=== PATIENT | female | born 1955 | race Caucasian/White ===

== ENCOUNTER 2016-04-05 08:59 | Inpatient (IN) | payer OTHER ==
[~2016-04-05] VITALS: Ht 160 cm; Wt 96.0 kg
[2016-04-05] MEDS ORDERED: metroNIDAZOLE 500 MG/NS (PMX) 100 ML IVPB STA (11:18)
[2016-04-05] MEDS ORDERED: PIPER-TAZO 3.375 GM IV (PMX) 100 ML IVPB STA (11:18)
[2016-04-05] MEDS ORDERED: SODIUM CHLORIDE 0.9% 1L BAG IV* STA (11:18)
[2016-04-05] MEDS ORDERED: ONDANSETRON 4 MG INJ IV STA (11:27)
[2016-04-05] MEDS ORDERED: morphine 4 MG/ML VIAL IV STA ×2 (11:27→14:59)
--- NOTE | 2016-04-05 11:49 | RADRPT ---
PROCEDURE: XR Chest 1 View. CLINICAL INDICATION: Shortness of breath, possible sepsis TECHNIQUE: AP view of the chest were obtained. COMPARISON: None. FINDINGS: The heart size is within normal limits. Calcified atherosclerosis is noted in the aorta. No consol idations are identified. No pneumothorax is seen. Osseous structures are intact. IMPRESSION: Calcified atherosclerosis in the aorta. No visualized active disease. RPTAT: AA .Mikael Cartagena MD, Date Time Electronically viewed and signed by .Mikael Cartagena MD, MD on 04/05/2016 11:49 .P/
[2016-04-05 12:07] LABS: HEMATOCRIT 43.6 % (37.0-47.0); HEMOGLOBIN 14.4 g/dl (12.0-16.0); MEAN CORPUSCULAR HEMOGLOBIN 27.6 pg (29.0-33.0); MEAN CORPUSCULAR HGB CONC 33.2 g/dl (32.0-37.0); MEAN CORPUSCULAR VOLUME 83.1 fl (82.0-101.0); MEAN PLATELET VOLUME 7.8 fl (7.4-10.4); PLATELET COUNT 348 10^3/UL (140-440); RED BLOOD COUNT 5.24 10^6/ul (4.20-5.40); RED CELL DISTRIBUTION WIDTH 16.4 % (11.5-14.5); UNCORRECTED WBC 10.9 10^3/ul (4.8-10.8); WHITE BLOOD COUNT 10.9 10^3/ul (4.8-10.8)
[2016-04-05 12:12] LABS: CHLORIDE 99 mmol/L (97-110); SODIUM 140 mmol/L (135-144)
[2016-04-05 12:14] LABS: ANION GAP 18 (8-16); BILIRUBIN,INDIRECT 0.8 mg/dl (0-1.1); BILIRUBIN,TOTAL 0.8 mg/dl (0.2-1.3); CARBON DIOXIDE 28 mmol/L (21-31); CONDITION 1; CREATININE 0.75 mg/dl (0.44-1.00); LH ANALYZER COMMENTS 1
[2016-04-05 12:15] LABS: ALANINE AMINOTRANSFERASE 26 IU/L (13-69); ALBUMIN/GLOBULIN RATIO 1.08; ALKALINE PHOSPHATASE 96 IU/L (42-121); ASPARTATE AMINO TRANSFERASE 32 IU/L (15-46); BLOOD UREA NITROGEN 16 mg/dl (7-20); GLUCOSE 144 mg/dl (70-220); TOTAL PROTEIN 7.7 g/dl (6.1-8.1)
[2016-04-05] MEDS ORDERED: ALBU18HF INHALATION (12:27)
[2016-04-05 12:38] LABS: TROPONIN-I < 0.012 ng/ml (0.00-0.12)
[2016-04-05 12:40] LABS: INR 1.03; PARTIAL THROMBOPLASTIN TIME 26.4 Sec (25.0-35.0); PROTIME 13.5 Sec (12.2-14.2); PT RATIO 1.1
[2016-04-05 12:54] LABS: EOSINOPHILS # 0.1 10^3/ul (0.0-0.5); LYMPHOCYTES # 0.5 10^3/ul (0.8-2.9); MONOCYTE # 0.3 10^3/ul (0.3-0.9); NEUTROPHIL # 8.5 10^3/ul (1.6-7.5)
--- NOTE | 2016-04-05 13:34 | RADRPT ---
PROCEDURE: CT Abdomen and Pelvis without contrast. CLINICAL INDICATION: Abdominal pain TECHNIQUE: CT scan of the abdomen and pelvis was performed on a multidetector high-resolution CT s [employer] without intravenous contrast. Coronal and sagittal reformatted images were obtained from the axial source images. Images were reviewed on a high-resolution PACS workstation. The total exam CTD I equals 24mGy and the total exam DLP equals 1383mGy-cm. One or more of the following dose reduction techniques were used: Automated exposure control, Adjustment of the mA and/or kV according to patie nt size, and/or use of iterative reconstruction technique. COMPARISON: None. FINDINGS: Evaluation of the solid organs is limited given the lack of intravenous contrast administration. Bibasilar atelectasis. Small hiatal hernia. Perihepatic ascites and pericholecystic fluid is seen. There is also free fluid seen in the bilatera l pericolic gutters and pelvis. The liver is normal in size. The pancreas, spleen and right adrenals are unremarkable. Left adrena l 12 mm nodule with internal density of -9 HU. No hydronephrosis. No renal or ureteral stone. Large left upper pelvic complex loculated fluid collection surrounding multiple small bowel loops me asures 11 x 8 centimeter. There is surrounding inflammatory stranding with small foci of air and cu rvilinear calcifications within the collection. Colonic diverticulosis. No significant bowel dilatation is identified to suggest bowel obstruction. The uterus is absent. IMPRESSION: Large left upper pelvic loculated fluid collection measuring 11 x 8 cm. There is surrounding inflam matory stranding with small foci of air and curvilinear calcifications within the collection. The co llection is suboptimally evaluated on noncontrast imaging. The differential considerations are led by an abscess. Alternative considerations would include a cystic mass or other cystic lesion. Consi lashay contrast enhanced CT or MRI for further evaluation. Small amount of perihepatic, pericholecystic, and bilateral pericolic gutter free fluid is seen. Colonic diverticulosis. Left adrenal adenoma. RPTAT: AA .Christopher Ferguson MD, MD Date Time Electronically viewed and signed by .Christopher Ferguson MD, on 04/05/2016 13:34 .T/
--- NOTE | 2016-04-05 13:55 | ERA ---
ER Documentation Chief Complaint Date/Time DATE: 04/05/16 TIME: 13:49 Chief Complaint ABDOMINAL PAIN AND NAUSEA FOR THE PAST FEW DAYS. GETTING WORSE TODAY HPI 60-year-old female with a history of gastritis and diverticulitis presenting with lower abdominal and epigastric pain. She states that she has had pain for the past 2 months and her abdomen. When it first started she was diagnosed with a UTI. She has had this pain that has been ongoing and staying the same for the past 2 months, however today her pain significantly worsened. She describes it as aching, pressure-like pain in her lower abdomen radiating all over her abdomen. She has had intermittent associated fevers and chills. No nausea or vomiting. She has had issues with constipation but her last bowel movement was this morning. She denies any diarrhea, hematochezia, melena. No dysuria. ROS All systems reviewed and are negative except as per history of present illness. Medications Home Meds Reported Medications Albuterol Sulfate* (Ventolin HFA*) 18 Gm Hfa.aer.ad, 2 PUFF INHALATION Q4H Y for WHEEZING AND SOB, #1 INHALER 04/05/16 Allergies Allergies: Coded Allergies: No Known Allergy (Unverified , 04/05/16) PMhx/Soc History of Surgery: No Anesthesia Reaction: No Hx Neurological Disorder: Yes ("SHAKINESS") Hx Respiratory Disorders: Yes (ASTHMA) Hx Cardiac Disorders: No Hx Psychiatric Problems: No Hx Miscellaneous Medical Probl: Yes (GASTRITIS, diverticulitis) Hx Alcohol Use: No Hx Substance Use: No Hx Tobacco Use: No Smoking Status: Never smoker FmHx Family History: No diabetes Physical Exam Vitals Vital Signs Date Time Temp Pulse Resp B/P Pulse Ox O2 Delivery O2 Flow Rate FiO2 04/05/16 13:30 98.6 83 16 121/76 98 Room Air 04/05/16 11:21 99.1 83 16 119/71 98 Room Air 04/05/16 09:02 101.7 99 24 172/115 94 Physical Exam Const: Nontoxic, well-developed, well-nourished, mild distress secondary to pain , overall tremulousness Head: Atraumatic Eyes: Normal Conjunctiva ENT: Normal External Ears, Nose and Mouth. Neck: Full range of motion. No meningismus. Resp: Clear to auscultation bilaterally Cardio: Regular rate and rhythm, no murmurs Abd: Soft, diffusely tender to palpation, more marked in the lower quadrants and epigastrium. No peritoneal signs. non distended. Decreased bowel sounds Skin: No petechiae or rashes Back: No midline or flank tenderness Ext: No cyanosis, or edema Neur: Awake and alert and oriented 3 Psych: Normal Mood and Affect Result Diagram: 04/05/16 1135 04/05/16 1135 Results 24 hrs Laboratory Tests Test 04/05/16 11:35 04/05/16 12:26 04/05/16 14:28 Activated Partial Thromboplast Time 26.4Sec Alanine Aminotransferase (ALT/SGPT) 26IU/L Albumin 4.0g/dl Albumin/Globulin Ratio 1.08 Alkaline Phosphatase 96IU/L Anion Gap 18 Aspartate Amino Transf (AST/SGOT) 32IU/L Band Neutrophils % 13.0% Basophils # 10^3/ul Basophils % % Blood Morphology Comment Blood Urea Nitrogen 16mg/dl Calcium Level 9.0mg/dl Carbon Dioxide Level 28mmol/L Chloride Level 99mmol/L Creatinine 0.75mg/dl Differential Comment MANUAL DIFF Direct Bilirubin 0.00mg/dl Eosinophils # 0.110^3/ul Eosinophils % 1.0% Globulin 3.70g/dl Glucose Level 144mg/dl Hematocrit 43.6% Hemoglobin 14.4g/dl INR International Normalized Ratio 1.03 Indirect Bilirubin 0.8mg/dl Lipase 18U/L Lymphocytes # 0.510^3/ul Lymphocytes % 5.0% Mean Corpuscular Hemoglobin 27.6pg Mean Corpuscular Hemoglobin Concent 33.2g/dl Mean Corpuscular Volume 83.1fl Mean Platelet Volume 7.8fl Monocytes # 0.310^3/ul Monocytes % 3.0% Neutrophils # 8.510^3/ul Neutrophils % 78.0% Nucleated Red Blood Cells # 10^3/ul Nucleated Red Blood Cells % /100WBC Platelet Count 29802^3/UL Potassium Level 5.0mmol/L Prothrombin Time 13.5Sec Prothrombin Time Ratio 1.1 Red Blood Count 5.2410^6/ul Red Cell Distribution Width 16.4% Sodium Level 140mmol/L Total Bilirubin 0.8mg/dl Total Protein 7.7g/dl Troponin I < 0.012ng/ml White Blood Count 10.910^3/ul Lactic Acid Level 3.5mmol/L 2.5mmol/L Current Medications Medications (Trade) Dose Ordered Sig/Arsenio Route PRN Reason Start Time Stop Time Status Last Admin Dose Admin Sodium Chloride 3010 ml 3,010 ml BOLUS OVER 2 HOURS STAT IV* 04/05/16 11:18 04/05/16 11:22 DC 04/05/16 12:40 Piperacillin Sod/ Tazobactam Sod 100 ml @ 200 mls/hr ONCE STAT IVPB 04/05/16 11:18 04/05/16 11:47 DC 04/05/16 12:39 Metronidazole (Flagyl 500 Mg (Pmx)) 100 ml @ 100 mls/hr ONCE STAT IVPB 04/05/16 11:18 04/05/16 12:17 DC 04/05/16 14:16 Morphine Sulfate (morphine) 6 mg ONCE STAT IV 04/05/16 11:27 04/05/16 11:28 DC 04/05/16 12:15 Ondansetron HCl (Zofran Inj) 4 mg ONCE STAT IV 04/05/16 11:27 04/05/16 11:28 DC 04/05/16 12:15 IV Flush 10 ml 10 ml STK-MED ONCE .ROUTE 04/05/16 13:58 04/05/16 13:59 DC Sodium Chloride (NS) 100 ml @ ud STK-MED ONCE .ROUTE 04/05/16 13:58 04/05/16 13:59 DC Iohexol (Omnipaque 300mg/ ml) 150 ml STK-MED ONCE .ROUTE 04/05/16 13:58 04/05/16 13:59 DC Procedures/MDM EKG: Rate/Rhythm: Sinus rhythm with PACs QRS, ST, T-waves: No changes consistent w/ acute ischemia Impression: No evidence of ischemia or arrhythmia Patient is presenting with abdominal pain associated with fever. I suspect diverticulitis versus colitis. Broad-spectrum antibiotics given for possible intra-abdominal infection. Morphine was given with significant improvement in symptoms. CT confirmed evidence of intra-abdominal abscess likely secondary to diverticulitis. Patient's infectious symptoms have not stabilized and the patient is at risk of rapid decompensation. The patient will be admitted for careful hydration, antibiotic therapy, and infectious source control. I spoke with the surgeon on-call who recommended CT percutaneous drainage by radiology. I also spoke to the patient and her daughter regarding a renal mass that was seen on the CT scan and recommended follow-up with primary care physician for this. She will need outpatient workup and referral to a specialist. A copy of the CT was provided. Severe Sepsis Assessment: Infectious Source: Acute intra-abdominal abscess End organ damage indicated by: Lactate > 2.0 mmol/L Severe Sepsis Managment: Blood Cultures X 2 before broad spectrum antibiotics initiated within 3 hours of recognition. 30 ml/kg NS bolus Completed Initial Lactate: 3.5 Repeat Lactate 2.5 Critical Care: Time: 35 minutes Treatments/Evaluations: Emergent fluid management, while maintaining close respiratory support. Immediate broad spectrum antibiotic therapy. Simultaneous assessment for possible sources in order to direct therapy. Consideration for invasive and chemical support to prevent respiratory or cardiac collapse. Septic Shock Assessment (1 hour post 30 ml/kg fluid bolus): Hypotension (SBP < 90 or 40 mmHg drop, MAP < 65): No Lactic acid > 4.0 No Accepting Care Team: Current data and ongoing care discussed. Time: Time of admission Primary Provider: Cisco Hodges Consulting: [facility] Outstanding Data: cultures Departure Diagnosis: Primary Impression: Intra-abdominal abscess Additional Impressions: Severe sepsis Abdominal pain Qualified Code: R10.84 - Generalized abdominal pain Condition: Serious EVA MARK MD Apr 05, 2016 13:54
[2016-04-05] MEDS ORDERED: SOD CHLORIDE 0.9% 100 ML ONE (13:58)
[2016-04-05] MEDS ORDERED: IOHEXOL 300MG/ML 150 ML BTL ONE (13:58)
--- NOTE | 2016-04-05 14:49 | RADRPT ---
AMENDMENT: 04/12/2016 6:47:52 PM Michael Yen MD ADDENDUM: There is redemonstrated left adrenal mass measuring 1.4 x 1.4 cm in diameter. The density of the ma ss on this contrast-enhanced study is greater than expected for a simple adenoma, measuring up to 51 HU. PROCEDURE: CT Abdomen and Pelvis with Contrast CLINICAL INDICATION: To further evaluate pelvic fluid collection on noncontrast CT TECHNIQUE: Transaxial images were obtained through the abdomen and pelvis on a multi-slice scanner following the intravenous administration of iodinated contrast. Noncontrast CT done earlier on the same date. Sagittal and coronal re-formations were subsequently reconstructed. One or more of the following dose reduction techniques were used: - Automated exposure control. - Adjustment of the mA and/or kV according to patient size. - Use of iterative reconstruction technique. Radiation dose: CTDIvol = 23.07 mGy; DLP = 1381.45 mGy-cm. COMPARISON: No prior studies are available for comparison. FINDINGS: Lung bases: Discoid atelectasis is seen within the anterior lung bases. Liver: The liver is enlarged. A 1 cm hypodensity is seen within the dome of the right lobe of the l iver and more inferiorly, a 4 mm hypodensity is seen in the posterior right lobe. These are suspici ous for cysts. Otherwise no focal lesion is evident. The hepatic components are patent. Gallbladder: The gallbladder remains mildly distended but no radiopaque stone is evident and the wal l is not thickened. Bile ducts: The intra and extrahepatic bile ducts are normal in caliber. Pancreas: Appears normal with no mass or inflammation evident. Spleen: Normal in size with no focal lesion. Adrenals: Normal with no mass identified. Kidneys, ureters and bladder: And there is a 2.6 x 2.3 x 1.8 cm hypodense mass extending into the la teral right kidney at the junction of the superior and mid poles which measures 80 HU. A 3 mm cyst is seen at the superior pole left kidney. There is no hydronephrosis. The renal veins are patent. The left renal vein courses posterior to the aorta. The ureters and bladder appear unremarkable. Reproductive organs: The uterus is absent and no adnexal masses evident. Stomach, bowel, and mesentery: There is a large lobulated loculated fluid collection seen in the int raperitoneal cavity within the pelvis anteriorly and extending to the left of midline containing coa rse calcifications and septations with thin wall enhancement. This is located superior to the bladd er and adjacent to sigmoid colon. There are diverticuli scattered to the colon. There is no eviden ce of bowel obstruction. A moderate-sized hiatal hernia is evident. Appendix: There is a tubular structure extending from the cecum to the left entering the loculated f luid collection described above. This may represent the vermiform appendix. Peritoneum: There is a small amount of free intraperitoneal fluid most evident within the right para colic gutter and within Morison's pouch. No free air is evident. Aorta: Normal in caliber with no aneurysmal dilatation. IVC: Unremarkable. Lymph nodes: No pathologically enlarged nodes are identified. Osseous structures: Mild diffuse degenerative spine changes are noted. IMPRESSION: 1. Since the noncontrast CT done earlier on the same date, a loculated intraperitoneal fluid collec tion with a thin enhancing wall is again seen in the pelvis have the midline and extending to the le ft of midline, lying superior to the bladder and adjacent to sigmoid colon with the apparent vermifo rm appendix extending into this collection. This measures 13.6 x 8.2 x 7.6 cm in diameter and cont ains coarse calcifications and bubbles of air. This is suspicious for an abscess. This could be of appendiceal origin or related to diverticulitis. 2. There is no evidence of bowel obstruction but there is diverticulosis of the colon and a moderat e sized hiatal hernia. 3. No evidence of urinary outflow obstruction but there again is a 2.6 x 2.3 x 1.8 cm mass measurin g 80 HU extending laterally at the junction of the mid and superior pole of the right kidney suspici ous for neoplasm. The renal veins are patent and no adenopathy is identified. 4. There is a small amount of free intraperitoneal fluid. No free air is evident. 5. Mild distension of the gallbladder with no bile duct dilatation or pancreatic pathology evident. 6. Hepatomegaly with 2 hypodensities seen in the right lobe the largest of which measures 1 cm in d iameter suspicious for cysts. Findings of intraperitoneal abscess and suspicion of a small right renal neoplasm were telephoned by Vimal Wright MD to Dr. Singleton on 04/05/2016 at 1445 hours. .Michael Yne MD, MD Date Time Electronically viewed and signed by .Michael Yen MD, MD on 04/12/2016 18:48 .K/
[2016-04-05] MEDS ORDERED: ACETAMINOPHEN 325 MG TAB PO PRN (15:00)
[2016-04-05] MEDS ORDERED: ONDANSETRON 4 MG INJ IV PRN ×2 (15:00→18:00)
[2016-04-05 15:40] VITALS: TEMP 97.1
[2016-04-05 16:40] VITALS: BP 109/58; PULSE 115; RESP 22
--- NOTE | 2016-04-05 17:20 | QN ---
Documentation Comment [id number] AIMEE PEREZ MD Apr 05, 2016 17:19
[2016-04-05 17:43] VITALS: Ht 160 cm; Wt 96.0 kg
[2016-04-05] MEDS ORDERED: NACL 0.9% 3 ML SYG IV SCH (18:00)
[2016-04-05] MEDS ORDERED: MAGNESIUM HYDROXIDE 30ML CUP PO PRN (18:00)
[2016-04-05] MEDS ORDERED: morphine 2 MG INJ IV PRN (18:00)
[2016-04-05] MEDS: DEXTROSE 5%-0.45% NACL 1,000 ML IV SCH (18:15)
--- NOTE | 2016-04-05 19:42 | HP ---
DATE OF ADMISSION: 04/05/2016 HISTORY OF PRESENT ILLNESS: Pratima Sexton is a 60-year-old female with a history of tremor, history of asthma. The patient has a history of diverticulitis in the past, presented with abdominal pain for the last couple of days. The patient's blood pressure was 167 and the patient's WBC 10.9, hematocrit 43.6, platelet count of 348. Lactic acid is 3.5. The patient has abdomen and pelvic CT done in the ER, shows large left upper pelvic loculated fluid collection measuring 8 x 8 x cm with surrounding inflammatory stranding with small focal area of free air and could be of calcification. The patient has a small amount of perihepatic pericholecystic, pericolic gutter free fluid is seen. The patient has left adrenal adenoma, is being admitted for further management. PAST MEDICAL HISTORY: Positive for history of tremor. The patient has diverticulitis. ALLERGIES: None. SOCIAL HISTORY: Negative. FAMILY HISTORY: Positive for hypertension, breast cancer. MEDICATIONS AT HOME: The patient is on some tremor medication and albuterol. REVIEW OF SYSTEMS HEENT: Unremarkable. RESPIRATORY: Unremarkable. CARDIOVASCULAR: Unremarkable. ABDOMEN: As mentioned above. No hematemesis, melena. EXTREMITIES: Unremarkable. GENITOURINARY: Unremarkable. MUSCULOSKELETAL: Unremarkable. PHYSICAL EXAMINATION: GENERAL: The patient is awake, alert. VITAL SIGNS: Pulse 53, blood pressure 121/76. HEAD: Atraumatic, normocephalic. Pupils equal, reactive to light. NECK: Supple. No JVD. LUNGS: Clear. CARDIOVASCULAR: S1, S2 are normal. ABDOMEN: Soft. Bowel sounds present. No palpable mass or hepatosplenomegaly. No guarding, rebound tenderness. ABDOMEN: Soft. The patient has tenderness in the left lower quadrant area and the left side of the abdomen. EXTREMITIES: No cyanosis, clubbing, or edema. CENTRAL NERVOUS SYSTEM: The patient is awake, alert, no focal deficit. LABORATORY DATA: WBC 10.9. IMPRESSION: 1. The patient has pelvic mass. 2. Possible diverticulitis. 3. Rule out abscess. 4. History of diverticulitis. PLAN: To keep her n.p.o., IV fluid, antibiotic, DVT prophylaxis, pain medications, PPI. Orders were done. Dictated By: AIMEE TOBAR/DRE Conf#: [id number] DID#: [id number]
[2016-04-05] MEDS ORDERED: morphine 4 MG/ML VIAL IV ONE (20:00)
[2016-04-05] MEDS: CIPROFLOXACIN 400MG/D5W 200 ML IVPB SCH (20:12)
[2016-04-05] MEDS: ACETAMINOPHEN 325 MG TAB PO PRN (20:17)
[2016-04-05 21:04] VITALS: BP 103/57; RESP 20
--- NOTE | 2016-04-05 21:38 | CONS ---
Date/Time of Note Date/Time of Note DATE: 04/05/16 TIME: 21:24 Assessment/Plan Assessment/Plan Chief Complaint/Hosp Course 1. Abdominal pain with large fluid collection (13.6 x 8.2 x 7.6 cm), ? abscess. DDx of source: Perforated diverticulitis versus perforated appendicitis versus cystic tumor versus other -Nothing by mouth -IV fluids -IV antibiotics -CT-guided drainage ordered and pending per IR 2. Hx of diverticulosis and diverticulitis -As above 3. BMI 37 -Nutrition optimization encouraged -Exercise encouraged 4. Leukocytosis and lactic acidosis with probable early sepsis secondary to above -As above -Supportive measures 5. Left adrenal adenoma -Workup per endocrine and oncology 6. 2.6 x 2.3 x 1.8 cm mass measuring 80 HU extending laterally at the junction of the mid and superior pole of the right kidney suspicious for neoplasm -Workup per urology and oncology 7. Hepatomegaly with hepatic cyst -Nutrition and weight optimization 8. Tremors -Medical management Thank you very much for consulting me in this patient's care, Problems: Consultation Date/Type/Reason Admit Date/Time Apr 05, 2016 at 14:49 Date of Consultation: Apr 05, 2016 Type of Consultation: Gen Surgical Reason for Consultation Abdominal large fluid collection, ? abscess Hx of diverticulosis and diverticulitis BMI 37 Tremors Leukocytosis Lactic acidosis Abdominal pain Referring Provider: AIMEE PEREZ MD Hx of Present Illness Pratima Sexton is a 60-year-old female with multiple comorbidities who presents with 3 weeks of on and off generalized abdominal pain that got worse in the past 5 days especially with ambulation. She's been having fevers on and off as well. She's been having nonbloody nonbilious vomiting. She reports having gas and bowel movement this morning. She is bloated. No chest pain or shortness of breath. No visual or neurologic changes. She reports history of diverticulitis 3 or 4 years ago. No previous history of exactly the same symptomatology. Straight up. No vaginal discharge. No seizure, rash, joint swellings. In the emergency room she is found to have fever with leukocytosis and lactic acidosis. CT shows a large fluid collection. She is admitted and placed on IV antibiotics and fluids. Surgical consult is obtained further evaluation and treatment. Constitutional: chills, diaphoresis, febrile Eyes: No discharge, No redness ENT: No bleeding, No congestion, No discharge, No dysphagia Respiratory: shortness of breath, No cough Cardiovascular: No chest pain, No edema, No lightheadedness Gastrointestinal: decreased appetite, flatus, nausea, pain, passing stool, vomiting Genitourinary: No bleeding, No dysuria, No flank pain Musculoskeletal: No back pain, No bone/joint pain, No neck pain, No restricted range of motion Skin: No bruising, No erythema, No pruritis, No rash Neurologic: No confusion, No dizziness, No headache Endocrine: No polydypsia, No polyuria Lymphatic: No adenopathy, No tender nodes Psychological: nl mood/affect, No confusion Immunologic: No pruritis, No rhinitis Past Medical History Abdominal large fluid collection, ? abscess Hx of diverticulosis and diverticulitis BMI 37 Tremors Leukocytosis Lactic acidosis Abdominal pain Left adrenal adenoma 2.6 x 2.3 x 1.8 cm mass measuring 80 HU extending laterally at the junction of the mid and superior pole of the right kidney suspicious for neoplasm Small amount of free intraperitoneal fluid. No free air is evident. Hepatomegaly with 2 hypodensities seen in the right lobe the largest of which measures 1 cm in diameter suspicious for cysts Past Surgical History Total abdominal hysterectomy and bilateral salpingo-oophorectomy secondary to fibroids and bleeding Family History Significant Family History: cancer (uterine cancer in grandmother. 2 cousins with breast cancer. Mother with hypertension.) Social History Alcohol Use: none Smoking Status: Former smoker (in her younger ages) Drug Use: none Exam/Review of Systems Vital Signs Vitals Vital Signs Date Time Temp Pulse Resp B/P Pulse Ox O2 Delivery O2 Flow Rate FiO2 04/05/16 21:04 101.8 122 20 103/57 94 04/05/16 16:40 Room Air Exam Constitutional: alert, obese, oriented, No distress Psych: anxiety Head: atraumatic, normocephalic Eyes: EOMI, PERRL, nl conjunctiva, No icteric ENMT: nl external ears & nose, nl lips & teeth, No mucosa pink and moist Neck: non-tender, supple Respiratory: normal air movement, No congested cough, No labored breathing Cardiovascular: No edema, No regular rate and rhythm Gastrointestinal: distended, tender, No rebound or guarding Musculoskeletal: nl extremities to inspection, No joint tenderness Extremities: normal pulses, No calf tenderness, No cyanosis Neurological: nl mental status, nl speech, nl strength Skin: nl turgor, No diaphoresis, No rash or lesions Lymph: nl lymph nodes, nontender Additional Comments Tremors Results Result Diagram: 04/05/16 1135 04/05/16 1135 Results 24 hrs Laboratory Tests Test 04/05/16 11:35 04/05/16 12:26 04/05/16 14:28 04/05/16 17:30 Activated Partial Thromboplast Time 26.4 Alanine Aminotransferase (ALT/SGPT) 26 Albumin 4.0 Albumin/Globulin Ratio 1.08 Alkaline Phosphatase 96 Anion Gap 18 H Aspartate Amino Transf (AST/SGOT) 32 Band Neutrophils % 13.0 H Basophils # Basophils % Blood Morphology Comment Blood Urea Nitrogen 16 Calcium Level 9.0 Carbon Dioxide Level 28 Chloride Level 99 Creatinine 0.75 Differential Comment MANUAL DIFF Direct Bilirubin 0.00 Eosinophils # 0.1 Eosinophils % 1.0 Globulin 3.70 H Glucose Level 144 Hematocrit 43.6 Hemoglobin 14.4 INR International Normalized Ratio 1.03 Indirect Bilirubin 0.8 Lipase 18 L Lymphocytes # 0.5 L Lymphocytes % 5.0 L Mean Corpuscular Hemoglobin 27.6 L Mean Corpuscular Hemoglobin Concent 33.2 Mean Corpuscular Volume 83.1 Mean Platelet Volume 7.8 Monocytes # 0.3 Monocytes % 3.0 Neutrophils # 8.5 H Neutrophils % 78.0 H Nucleated Red Blood Cells # Nucleated Red Blood Cells % Platelet Count 348 Potassium Level 5.0 Prothrombin Time 13.5 Prothrombin Time Ratio 1.1 Red Blood Count 5.24 Red Cell Distribution Width 16.4 H Sodium Level 140 Total Bilirubin 0.8 Total Protein 7.7 Troponin I < 0.012 White Blood Count 10.9 H Lactic Acid Level 3.5 H 2.5 H 1.5 Medications Medications Current Medications Dextrose/Sodium Chloride (D5-1/2ns) 1,000 ml @ 60 mls/hr [id number] IV Last administered on 04/05/16t 18:15; Admin Dose 60 MLS/HR; Start 04/05/16 at 17:36 Ondansetron HCl (Zofran Inj) 4 mg Q6H PRN IV NAUSEA AND/OR VOMITING; Start 04/05 at 18:00 Acetaminophen (Tylenol Tab) 650 mg Q6H PRN PO PAIN LEVEL 1-3 OR FEVER Last administered on 04/05/16 20:17; Admin Dose 650 MG; Start 04/05/16 at 18:00 Magnesium Hydroxide (Milk Of Mag) 30 ml DAILY PRN PO CONSTIPATION; Start at 18:00 Zolpidem Tartrate (Ambien) 5 mg QHS PRN PO SLEEP; Start 04/05/16 at 18:00 Pantoprazole 40 mg 40 mg DAILY@06 IV ; Start 04/06/16 at 06:00 Metronidazole 100 ml @ 100 mls/hr Q8 IVPB ; Start 04/05/16 at 22:00 Ciprofloxacin/ Dextrose (Cipro Ivpb) 200 ml @ 200 mls/hr Q12 IVPB Last administered on 04/05/16 20:12; Admin Dose 200 MLS/HR; Start 04/05/16 at 21:00 Morphine Sulfate (morphine) 3 mg Q3H PRN IV PAIN; Start 04/05/16 at 21:00 FLORIAN TABOR MD Apr 05, 2016 21:34
[2016-04-05] MEDS: metroNIDAZOLE 500 MG/NS (PMX) 100 ML IVPB SCH (21:47)
[2016-04-06] MEDS: morphine 4 MG/ML VIAL IV PRN ×5 (01:45→21:01)
[2016-04-06 01:59] LABS: ADD UMIC YES; URINE BILIRUBIN (Dip) 1+ (NEGATIVE); URINE BLOOD (Dip) 1+ (NEGATIVE); URINE COLOR YELLOW (YELLOW); URINE GLUCOSE (Dip) NEGATIVE (NEGATIVE); URINE KETONES (Dip) NEGATIVE (NEGATIVE); URINE LEUKOCYTE ESTERASE (Dip) NEGATIVE (NEGATIVE); URINE NITRITE (Dip) NEGATIVE (NEGATIVE); URINE TOTAL PROTEIN (Dip) TRACE (NEGATIVE); URINE UROBILINOGEN (Dip) 0.2 E.U./dL (0.1-1.0)
[2016-04-06 02:33] LABS: ICTOTEST NEGATIVE (NEGATIVE)
[2016-04-06 02:34] LABS: BACTERIA,URINE RARE; SQUAMOUS EPITHELIAL CELL,UR FEW; URINE RBCS 0-2 /HPF (0)
[2016-04-06] MEDS: metroNIDAZOLE 500 MG/NS (PMX) 100 ML IVPB SCH ×3 (05:18→22:23)
[2016-04-06] MEDS: PANTOPRAZOLE 40 MG INJ IV SCH (05:19)
[2016-04-06 05:26] LABS: EOSINOPHILS % 0.4 % (0.0-7.0); HEMATOCRIT 33.4 % (37.0-47.0); HEMOGLOBIN 11.1 g/dl (12.0-16.0); LYMPHOCYTES # 0.6 10^3/ul (0.8-2.9); LYMPHOCYTES % 5.4 % (15.0-51.0); MEAN CORPUSCULAR HEMOGLOBIN 27.6 pg (29.0-33.0); MEAN CORPUSCULAR HGB CONC 33.3 g/dl (32.0-37.0); MEAN CORPUSCULAR VOLUME 82.9 fl (82.0-101.0); MEAN PLATELET VOLUME 7.5 fl (7.4-10.4); MONOCYTE # 0.6 10^3/ul (0.3-0.9); MONOCYTES % 5.6 % (0.0-11.0); NEUTROPHIL # 9.2 10^3/ul (1.6-7.5); NEUTROPHILS % 88.6 % (39.0-77.0); PLATELET COUNT 293 10^3/UL (140-440); RED BLOOD COUNT 4.03 10^6/ul (4.20-5.40); RED CELL DISTRIBUTION WIDTH 16.8 % (11.5-14.5); UNCORRECTED WBC 10.4 10^3/ul (4.8-10.8); WHITE BLOOD COUNT 10.4 10^3/ul (4.8-10.8)
[2016-04-06 05:43] LABS: POTASSIUM 4.3 mmol/L (3.5-5.1)
[2016-04-06 05:45] LABS: CREATININE 0.73 mg/dl (0.44-1.00)
[2016-04-06 05:46] LABS: BILIRUBIN,INDIRECT 0.6 mg/dl (0-1.1); BILIRUBIN,TOTAL 0.6 mg/dl (0.2-1.3)
[2016-04-06 05:47] LABS: CALCIUM 7.8 mg/dl (8.4-10.2)
[2016-04-06 06:27] LABS: CONDITION 1; LH ANALYZER COMMENTS 1
[2016-04-06 08:01] VITALS: BP 108/50; RESP 16
[2016-04-06] MEDS: CIPROFLOXACIN 400MG/D5W 200 ML IVPB SCH ×2 (08:26→20:53)
[2016-04-06] MEDS ORDERED: MIDAZOLAM 1 MG/ML 2 ML INJ ONE ×3 (09:05→10:12)
[2016-04-06] MEDS ORDERED: ROCURONIUM 50 MG INJ ONE (09:08)
[2016-04-06] MEDS ORDERED: PROPOFOL 20 ML ONE (09:08)
[2016-04-06] MEDS ORDERED: LIDOCAINE 2% (SDV) 5 ML INJ ONE (09:11)
[2016-04-06] MEDS ORDERED: LIDOCAINE 1% (MDV) 20 ML INJ ONE ×2 (09:11→10:11)
[2016-04-06] MEDS ORDERED: LIDOCAINE 2% JELLY 5 ML ONE (09:11)
[2016-04-06] MEDS ORDERED: FENTAnyl 50 MCG/ML VIAL ONE ×2 (10:12→12:44)
[2016-04-06] MEDS ORDERED: DIPHENHYDRAMINE 50 MG INJ ONE (10:12)
[2016-04-06] MEDS: DEXTROSE 5%-0.45% NACL 1,000 ML IV SCH ×2 (10:16→22:27)
[2016-04-06] MEDS ORDERED: PHENYLephrine (100 MCG/ML) 5ML SYG ONE ×4 (10:36→14:02)
[2016-04-06] MEDS ORDERED: DEXAMETHASONE 4 MG/ML 1 ML INJ ONE (10:45)
[2016-04-06 11:00] VITALS: BP 118/56; PULSE 94; RESP 20
[2016-04-06 11:35] VITALS: BP 117/55; PULSE 92; RESP 18
[2016-04-06 11:40] VITALS: BP 119/67; PULSE 92; RESP 20
[2016-04-06 11:45] VITALS: BP 131/60; PULSE 92; RESP 16
[2016-04-06] MEDS ORDERED: ONDANSETRON 4 MG INJ ONE (12:12)
[2016-04-06] MEDS ORDERED: METOCLOPRAMIDE 10 MG INJ ONE (12:12)
[2016-04-06] MEDS ORDERED: FAMOTIDINE 20 MG INJ ONE (12:13)
[2016-04-06] MEDS ORDERED: HYDROmorphONE 2 MG/ML SYG ONE (14:09)
--- NOTE | 2016-04-06 15:26 | RADRPT ---
PROCEDURE: CT guided pelvic abscess drainage. CLINICAL INDICATION: Abdominal and pelvic pain. Pelvic abscess. TECHNIQUE: Informed consent was obtained. The procedure, risks, benefits, complications and alternatives were explained to the patient. Risks including bleeding and infection were explained. The patient underst ood and was willing to proceed. A procedural pause was performed. The patient's name, date of , and procedure to be performed were verified. One or more of the following dose reduction techniq ues were used: Automated exposure control, adjustment of the mA and/or kV according to patient size, use of iterative reconstruction technique. Using local anesthetic, sterile technique and CT guidance, a 19-gauge Yueh needle was advanced into the fluid collection in the left side of pelvis anteriorly. CT scan was performed confirming positi on. Purulent fluid was also aspirated confirming position. The needle from the Yueh catheter was r emoved, leaving the Yueh catheter in place within the fluid collection. A 0.035-inch Amplatz guidew lazara was advanced through the Yueh catheter into the fluid collection. The Yueh catheter was removed . The tract was dilated to 8-Swiss. An 8.5 Swiss multipurpose drainage catheter was advanced ove r the guidewire into the fluid collection. The guidewire was removed. Additional scanning was perf ormed confirming position. The catheter was then sutured to the patient's skin with 2-0 silk. Appr oximately 100 ml of purulent fluid was aspirated. The catheter was connected to a drainage bag. A dressing was applied. The patient tolerated procedure well. COMPARISON: CT scan of the abdomen and pelvis dated 04/05/2016. FINDINGS: Final images demonstrate the drainage catheter in satisfactory position within the left lower quadra nt abscess. IMPRESSION: 1. Successful CT guided left lower quadrant pelvic abscess drainage. RPTAT: QQ .Vinicio Ansari MD, Date Time Electronically viewed and signed by .Vinicio Ansari MD, MD on 04/06/2016 15:25 .R/
--- NOTE | 2016-04-06 17:24 | PN ---
Date/Time of Note Date/Time of Note DATE: 04/06/16 TIME: 17:23 Assessment/Plan VTE Prophylaxis VTE Prophylaxis Intervention: other Lines/Catheters IV C[facility]ter Type (from [facility]): Peripheral IV Assessment/Plan Chief Complaint/Hosp Course IMPRESSION: 1. The patient has ABD mass. 2. Possible diverticulitis. 3. Rule out abscess. 4. History of diverticulitis. 5 S/P CT GUIDED DRAINAGE PLAN ANTIBIOTIC PER SURGERY Problems: Subjective 24 Hr Interval Summary Subjective hx not possible: other (S/P CT GUIDED DRAINAGE) Exam/Review of Systems Vital Signs Vitals Vital Signs Date Time Temp Pulse Resp B/P Pulse Ox O2 Delivery O2 Flow Rate FiO2 04/06/16 08:01 99.3 89 16 108/50 92 04/05/16 16:40 Room Air Intake and Output 04/05/16 04/05/16 04/06/16 15:00 23:00 07:00 Intake Total 3500 ml 690 ml Output Total 1000 ml Balance 3500 ml -310 ml Exam Neck: supple Respiratory: clear to auscultation Cardiovascular: regular rate and rhythm Gastrointestinal: soft Musculoskeletal: nl extremities to inspection Extremities: normal pulses Results Result Diagram: 04/06/16 0425 04/06/16 0425 Results 24 hrs Laboratory Tests Test 04/05/16 17:30 04/05/16 23:30 04/06/16 04:25 Lactic Acid Level 1.5 Urine Bacteria RARE Urine Bilirubin 1+ H Urine Clarity CLEAR Urine Color YELLOW Urine Glucose NEGATIVE Urine Hemoglobin 1+ H Urine Ictotest NEGATIVE Urine Ketones NEGATIVE Urine Leukocyte Esterase NEGATIVE Urine Microscopic RBC 0-2 Urine Microscopic WBC 0-2 Urine Nitrite NEGATIVE Urine Specific [place] 1.020 Urine Squamous Epithelial Cells FEW Urine Total Protein TRACE Urine Urobilinogen 0.2 E.U./dL Urine pH 5.5 Alanine Aminotransferase (ALT/SGPT) 22 Albumin 3.0 #L Albumin/Globulin Ratio 1.00 Alkaline Phosphatase 61 Anion Gap 14 Aspartate Amino Transf (AST/SGOT) 14 L Basophils # 0.0 Basophils % 0.0 Blood Morphology Comment Blood Urea Nitrogen 13 Calcium Level 7.8 L Carbon Dioxide Level 25 Chloride Level 102 Creatinine 0.73 Direct Bilirubin 0.00 Eosinophils # 0.0 Eosinophils % 0.4 Globulin 3.00 Glucose Level 120 Hematocrit 33.4 #L Hemoglobin 11.1 #L Indirect Bilirubin 0.6 Lymphocytes # 0.6 L Lymphocytes % 5.4 L Mean Corpuscular Hemoglobin 27.6 L Mean Corpuscular Hemoglobin Concent 33.3 Mean Corpuscular Volume 82.9 Mean Platelet Volume 7.5 Monocytes # 0.6 Monocytes % 5.6 Neutrophils # 9.2 H Neutrophils % 88.6 H Nucleated Red Blood Cells # 0.0 Nucleated Red Blood Cells % 0.0 Platelet Count 293 Potassium Level 4.3 Red Blood Count 4.03 #L Red Cell Distribution Width 16.8 H Sodium Level 137 Total Bilirubin 0.6 Total Protein 6.0 #L White Blood Count 10.4 Medications Medications Current Medications Dextrose/Sodium Chloride (D5-1/2ns) 1,000 ml @ 60 mls/hr [id number] IV Last administered on 04/05/16 18:15; Admin Dose 60 MLS/HR; Start 04/05/16 at 17:36 Ondansetron HCl (Zofran Inj) 4 mg Q6H PRN IV NAUSEA AND/OR VOMITING; Start 04/05 at 18:00 Acetaminophen (Tylenol Tab) 650 mg Q6H PRN PO PAIN LEVEL 1-3 OR FEVER Last administered on 04/05/16 20:17; Admin Dose 650 MG; Start 04/05/16 at 18:00 Magnesium Hydroxide (Milk Of Mag) 30 ml DAILY PRN PO CONSTIPATION; Start at 18:00 Zolpidem Tartrate (Ambien) 5 mg QHS PRN PO SLEEP; Start 04/05/16 at 18:00 Pantoprazole 40 mg 40 mg DAILY@06 IV Last administered on 04/06/16 05:19; Admin Dose 40 MG; Start 04/06/16 at 06:00 Metronidazole 100 ml @ 100 mls/hr Q8 IVPB Last administered on 04/06/16 13:08 ; Admin Dose 100 MLS/HR; Start 04/05/16 at 22:00 Ciprofloxacin/ Dextrose (Cipro Ivpb) 200 ml @ 200 mls/hr Q12 IVPB Last administered on 04/06/16 08:26; Admin Dose 200 MLS/HR; Start 04/05/16 at 21:00 Morphine Sulfate (morphine) 3 mg Q3H PRN IV PAIN Last administered on 04/06/16 13:08; Admin Dose 3 MG; Start 04/05/16 at 21:00 AIMEE PEREZ MD Apr 06, 2016 17:24
[2016-04-06 20:34] VITALS: BP 116/57; RESP 17
[2016-04-06] MEDS: ACETAMINOPHEN 325 MG TAB PO PRN (22:26)
[2016-04-07] MEDS: morphine 4 MG/ML VIAL IV PRN ×2 (05:47→09:16)
[2016-04-07 05:49] LABS: ALBUMIN 2.9 g/dl (3.3-4.9)
[2016-04-07 05:50] LABS: POTASSIUM 3.6 mmol/L (3.5-5.1)
[2016-04-07] MEDS: PANTOPRAZOLE 40 MG INJ IV SCH (05:51)
[2016-04-07 05:52] LABS: ALBUMIN/GLOBULIN RATIO 0.93; BILIRUBIN,INDIRECT 0.3 mg/dl (0-1.1); BILIRUBIN,TOTAL 0.3 mg/dl (0.2-1.3); CALCIUM 8.4 mg/dl (8.4-10.2); CREATININE 0.71 mg/dl (0.44-1.00)
[2016-04-07] MEDS: metroNIDAZOLE 500 MG/NS (PMX) 100 ML IVPB SCH ×3 (05:53→23:22)
[2016-04-07 06:55] LABS: HEMATOCRIT 33.1 % (37.0-47.0); HEMOGLOBIN 10.2 g/dl (12.0-16.0); RED BLOOD COUNT 3.83 10^6/ul (4.20-5.40); WHITE BLOOD COUNT 9.3 10^3/ul (4.8-10.8)
[2016-04-07 06:56] LABS: BASOPHILS % 0.1 % (0.0-2.0); EOSINOPHILS % 0.2 % (0.0-7.0); LYMPHOCYTES # 0.6 10^3/ul (0.8-2.9); LYMPHOCYTES % 6.1 % (15.0-51.0); MEAN CORPUSCULAR HEMOGLOBIN 26.6 pg (29.0-33.0); MEAN CORPUSCULAR HGB CONC 30.8 g/dl (32.0-37.0); MEAN CORPUSCULAR VOLUME 86.4 fl (82.0-101.0); MEAN PLATELET VOLUME 8.9 fl (7.4-10.4); MONOCYTE # 0.5 10^3/ul (0.3-0.9); MONOCYTES % 5.1 % (0.0-11.0); NEUTROPHIL # 8.2 10^3/ul (1.6-7.5); NEUTROPHILS % 87.9 % (39.0-77.0); PLATELET COUNT 257 10^3/UL (140-440); RED CELL DISTRIBUTION WIDTH 15.9 % (11.5-14.5)
[2016-04-07 08:12] VITALS: BP 116/56; RESP 16
[2016-04-07] MEDS: CIPROFLOXACIN 400MG/D5W 200 ML IVPB SCH ×2 (09:04→21:43)
--- NOTE | 2016-04-07 11:59 | PN ---
Date/Time of Note Date/Time of Note DATE: 04/07/16 TIME: 11:58 Assessment/Plan VTE Prophylaxis VTE Prophylaxis Intervention: other Lines/Catheters IV [facility] Type [facility] Peripheral IV Urinary Cath still in place: No Assessment/Plan Chief Complaint/Hosp Course IMPRESSION: 1. The patient has ABD mass. 2. Possible diverticulitis. 3. Rule out abscess. 4. History of diverticulitis. 5 S/P CT GUIDED DRAINAGE PLAN ANTIBIOTIC PER SURGERY Problems: Subjective 24 Hr Interval Summary Gastrointestinal: no complaints Genitourinary: no complaints Musculoskeletal: no complaints Exam/Review of Systems Vital Signs Vitals Vital Signs Date Time Temp Pulse Resp B/P Pulse Ox O2 Delivery O2 Flow Rate FiO2 04/07/16 08:12 98.4 80 16 116/56 96 04/06/16 12:00 Nasal Cannula 2 Intake and Output 04/06/16 04/06/16 04/07/16 15:00 23:00 07:00 Intake Total 930 ml 250 ml Output Total 100 ml 40 ml 810 ml Balance -100 ml 890 ml -560 ml Exam Respiratory: clear to auscultation Cardiovascular: regular rate and rhythm Gastrointestinal: bowel sounds (+), non-tender, soft Results Result Diagram: 04/07/16 0455 04/07/16 0455 Results 24 hrs Laboratory Tests Test 04/07/16 04:55 Alanine Aminotransferase (ALT/SGPT) 33 Albumin 2.9 L Albumin/Globulin Ratio 0.93 Alkaline Phosphatase 74 Anion Gap 12 Aspartate Amino Transf (AST/SGOT) 11 L Basophils # 0.0 Basophils % 0.1 Blood Urea Nitrogen 9 Calcium Level 8.4 Carbon Dioxide Level 28 Chloride Level 101 Creatinine 0.71 Direct Bilirubin 0.00 Eosinophils # 0.0 Eosinophils % 0.2 Globulin 3.10 Glucose Level 118 Hematocrit 33.1 L Hemoglobin 10.2 L Indirect Bilirubin 0.3 Lymphocytes # 0.6 L Lymphocytes % 6.1 L Mean Corpuscular Hemoglobin 26.6 L Mean Corpuscular Hemoglobin Concent 30.8 L Mean Corpuscular Volume 86.4 Mean Platelet Volume 8.9 Monocytes # 0.5 Monocytes % 5.1 Neutrophils # 8.2 H Neutrophils % 87.9 H Nucleated Red Blood Cells # 0.0 Nucleated Red Blood Cells % 0.0 Platelet Count 257 Potassium Level 3.6 Red Blood Count 3.83 L Red Cell Distribution Width 15.9 H Sodium Level 137 Total Bilirubin 0.3 Total Protein 6.0 L White Blood Count 9.3 Medications Medications Current Medications Dextrose/Sodium Chloride (D5-1/2ns) 1,000 ml @ 60 mls/hr [id number] IV Last administered on 04/06/16 22:27; Admin Dose 60 MLS/HR; Start 04/05/16 at 17:36 Ondansetron HCl (Zofran Inj) 4 mg Q6H PRN IV NAUSEA AND/OR VOMITING; Start 04/05 at 18:00 Acetaminophen (Tylenol Tab) 650 mg Q6H PRN PO PAIN LEVEL 1-3 OR FEVER Last administered on 04/06/16 22:26; Admin Dose 650 MG; Start 04/05/16 at 18:00 Magnesium Hydroxide (Milk Of Mag) 30 ml DAILY PRN PO CONSTIPATION; Start at 18:00 Zolpidem Tartrate (Ambien) 5 mg QHS PRN PO SLEEP; Start 04/05/16 at 18:00 Pantoprazole 40 mg 40 mg DAILY@06 IV Last administered on 04/07/16 05:51; Admin Dose 40 MG; Start 04/06/16 at 06:00 Metronidazole 100 ml @ 100 mls/hr Q8 IVPB Last administered on 04/07/16 05:53 ; Admin Dose 100 MLS/HR; Start 04/05/16 at 22:00 Ciprofloxacin/ Dextrose (Cipro Ivpb) 200 ml @ 200 mls/hr Q12 IVPB Last administered on 04/07/16 09:04; Admin Dose 200 MLS/HR; Start 04/05/16 at 21:00 Morphine Sulfate (morphine) 3 mg Q3H PRN IV PAIN Last administered on 04/07/16 09:16; Admin Dose 3 MG; Start 04/05/16 at 21:00 AIMEE PEREZ MD Apr 07, 2016 11:58
[2016-04-07] MEDS: ACETAMINOPHEN 325 MG TAB PO PRN (16:27)
--- NOTE | 2016-04-07 17:55 | PN ---
Date/Time of Note Date/Time of Note DATE: 04/06/16 TIME: 17:51 Assessment/Plan Lines/Catheters IV Catheter Type (from [facility]): Peripheral IV [facility] in Place (from [facility]): No Assessment/Plan Chief Complaint/Hosp Course 1. Abdominal pain with large fluid collection (13.6 x 8.2 x 7.6 cm), ? abscess. DDx of source: Perforated diverticulitis versus perforated appendicitis versus cystic tumor versus other. s/p IR percutaneous drain placed 2/3. -Clears -IV fluids -IV antibiotics -Cultures cytology 2. Hx of diverticulosis and diverticulitis -As above 3. BMI 37 -Nutrition optimization encouraged -Exercise encouraged 4. Leukocytosis and lactic acidosis with probable early sepsis secondary to above -As above -Supportive measures 5. Left adrenal adenoma -Workup per endocrine and oncology 6. 2.6 x 2.3 x 1.8 cm mass measuring 80 HU extending laterally at the junction of the mid and superior pole of the right kidney suspicious for neoplasm -Workup per urology and oncology 7. Hepatomegaly with hepatic cyst -Nutrition and weight optimization 8. Tremors -Medical management Thank you, Late entry 2/ Problems: Subjective 24 Hr Interval Summary s/p IR perc drain 2/3. No fevers or chills. Still has abdominal pain but improving. No nausea vomiting. No chest pain or shortness of breath. No visual or neurologic changes. No dysuria. Positive bowel function. Exam/Review of Systems Vital Signs Vitals Vital Signs Date Time Temp Pulse Resp B/P Pulse Ox O2 Delivery O2 Flow Rate FiO2 04/07/16 08:12 98.4 80 16 116/56 96 04/06/16 12:00 Nasal Cannula 2 Intake and Output 04/06/16 04/06/16 04/07/16 15:00 23:00 07:00 Intake Total 930 ml 250 ml Output Total 100 ml 40 ml 810 ml Balance -100 ml 890 ml -560 ml Exam Free Text/Dictation Constitutional: alert, obese, oriented, No distress Psych: anxiety Head: atraumatic, normocephalic Eyes: EOMI, PERRL, nl conjunctiva, No icteric ENMT: nl external ears & nose, nl lips & teeth, No mucosa pink and moist Neck: non-tender, supple Respiratory: normal air movement, No congested cough, No labored breathing Cardiovascular: No edema, No regular rate and rhythm Gastrointestinal: distended, tender, No rebound or guarding Musculoskeletal: nl extremities to inspection, No joint tenderness Extremities: normal pulses, No calf tenderness, No cyanosis Neurological: nl mental status, nl speech, nl strength. Tremors Skin: nl turgor, No diaphoresis, No rash or lesions Lymph: nl lymph nodes, nontender Results Result Diagram: 04/07/16 0455 04/07/16 0455 FLORIAN TABOR MD Apr 07, 2016 17:55
--- NOTE | 2016-04-07 17:56 | PN ---
Date/Time of Note Date/Time of Note DATE: 04/07/16 TIME: 17:55 Assessment/Plan Lines/Catheters IV Catheter Type (from [facility]): Peripheral IV [facility] in Place (from [facility]): No Assessment/Plan Chief Complaint/Hosp Course 1. Abdominal pain with large fluid collection (13.6 x 8.2 x 7.6 cm), ? abscess. DDx of source: Perforated diverticulitis versus perforated appendicitis versus cystic tumor versus other. s/p IR percutaneous drain placed 2/3. -Clears and advance as tolerated -IV fluids -IV antibiotics -Cultures cytology 2. Hx of diverticulosis and diverticulitis -As above 3. BMI 37 -Nutrition optimization encouraged -Exercise encouraged 4. Leukocytosis and lactic acidosis with probable early sepsis secondary to above -As above -Supportive measures 5. Left adrenal adenoma -Workup per endocrine and oncology 6. 2.6 x 2.3 x 1.8 cm mass measuring 80 HU extending laterally at the junction of the mid and superior pole of the right kidney suspicious for neoplasm -Workup per urology and oncology 7. Hepatomegaly with hepatic cyst -Nutrition and weight optimization 8. Tremors -Medical management Thank you, Problems: Subjective 24 Hr Interval Summary s/p IR perc drain 2/3. No fevers or chills. Still has abdominal pain but improving. No nausea vomiting. No chest pain or shortness of breath. No visual or neurologic changes. No dysuria. Positive bowel function. Exam/Review of Systems Vital Signs Vitals Vital Signs Date Time Temp Pulse Resp B/P Pulse Ox O2 Delivery O2 Flow Rate FiO2 04/07/16 08:12 98.4 80 16 116/56 96 04/06/16 12:00 Nasal Cannula 2 Intake and Output 04/06/16 04/06/16 04/07/16 15:00 23:00 07:00 Intake Total 930 ml 250 ml Output Total 100 ml 40 ml 810 ml Balance -100 ml 890 ml -560 ml Exam Free Text/Dictation Constitutional: alert, obese, oriented, No distress Psych: anxiety Head: atraumatic, normocephalic Eyes: EOMI, PERRL, nl conjunctiva, No icteric ENMT: nl external ears & nose, nl lips & teeth, No mucosa pink and moist Neck: non-tender, supple Respiratory: normal air movement, No congested cough, No labored breathing Cardiovascular: No edema, No regular rate and rhythm Gastrointestinal: distended, tender, No rebound or guarding. Left sided drain. Musculoskeletal: nl extremities to inspection, No joint tenderness Extremities: normal pulses, No calf tenderness, No cyanosis Neurological: nl mental status, nl speech, nl strength. Tremors Skin: nl turgor, No diaphoresis, No rash or lesions Lymph: nl lymph nodes, nontender Results Result Diagram: 04/07/16 0455 04/07/16 0455 FLORIAN TABOR MD Apr 07, 2016 17:56
[2016-04-07 20:43] VITALS: BP 120/56; RESP 20
[2016-04-07 20:52] VITALS: BP 114/75; RESP 18
[2016-04-08] MEDS: DEXTROSE 5%-0.45% NACL 1,000 ML IV SCH ×3 (00:16→21:59)
[2016-04-08] MEDS: morphine 4 MG/ML VIAL IV PRN ×2 (01:33→12:49)
[2016-04-08] MEDS: ZOLPIDEM 5 MG TAB PO PRN (01:33)
[2016-04-08] MEDS: PANTOPRAZOLE 40 MG INJ IV SCH (05:41)
[2016-04-08] MEDS: metroNIDAZOLE 500 MG/NS (PMX) 100 ML IVPB SCH ×3 (05:41→21:59)
[2016-04-08 08:06] VITALS: BP 117/55; RESP 19
[2016-04-08] MEDS: CIPROFLOXACIN 400MG/D5W 200 ML IVPB SCH ×2 (08:42→20:47)
--- NOTE | 2016-04-08 16:25 | PN ---
Date/Time of Note Date/Time of Note DATE: 04/08/16 TIME: 16:23 Assessment/Plan Lines/Catheters IV Catheter Type (from [facility]): Peripheral IV Parker in Place (from [facility]): No Assessment/Plan Chief Complaint/Hosp Course 1. Abdominal pain with large fluid collection (13.6 x 8.2 x 7.6 cm), ? abscess. DDx of source: Perforated diverticulitis versus perforated appendicitis versus cystic tumor versus other. s/p IR percutaneous drain placed 2/3. -Clears and advance as tolerated -IV fluids -IV antibiotics -Cultures cytology 2. Hx of diverticulosis and diverticulitis -As above 3. BMI 37 -Nutrition optimization encouraged -Exercise encouraged 4. Leukocytosis and lactic acidosis with probable early sepsis secondary to above -As above -Supportive measures 5. Left adrenal adenoma -Workup per endocrine and oncology 6. 2.6 x 2.3 x 1.8 cm mass measuring 80 HU extending laterally at the junction of the mid and superior pole of the right kidney suspicious for neoplasm -Workup per urology and oncology 7. Hepatomegaly with hepatic cyst -Nutrition and weight optimization 8. Tremors -Medical management Thank you, Problems: Subjective 24 Hr Interval Summary s/p IR perc drain 2/3. No fevers or chills. Still has abdominal pain but improving. No nausea vomiting. No chest pain or shortness of breath. No visual or neurologic changes. No dysuria. Bowel function. Exam/Review of Systems Vital Signs Vitals Vital Signs Date Time Temp Pulse Resp B/P Pulse Ox O2 Delivery O2 Flow Rate FiO2 04/08/16 08:06 98.3 76 19 117/55 98 04/06/16 12:00 Nasal Cannula 2 Intake and Output 04/07/16 04/07/16 04/08/16 15:00 23:00 07:00 Intake Total 2270 ml 840 ml Output Total 100 ml 75 ml Balance 2170 ml 765 ml Exam Free Text/Dictation Constitutional: alert, obese, oriented, No distress Psych: anxiety Head: atraumatic, normocephalic Eyes: EOMI, PERRL, nl conjunctiva, No icteric ENMT: nl external ears & nose, nl lips & teeth, No mucosa pink and moist Neck: non-tender, supple Respiratory: normal air movement, No congested cough, No labored breathing Cardiovascular: No edema, No regular rate and rhythm Gastrointestinal: distended, tender, No rebound or guarding. Left sided drain. Musculoskeletal: nl extremities to inspection, No joint tenderness Extremities: normal pulses, No calf tenderness, No cyanosis Neurological: nl mental status, nl speech, nl strength. Tremors Skin: nl turgor, No diaphoresis, No rash or lesions Lymph: nl lymph nodes, nontender Results Result Diagram: 04/07/16 0455 04/07/16 0455 FLORIAN TABOR MD Apr 08, 2016 16:24
[2016-04-08 19:39] VITALS: BP 117/55; RESP 20
--- NOTE | 2016-04-08 23:28 | PN ---
Date/Time of Note Date/Time of Note DATE: 04/08/16 TIME: 23:27 Assessment/Plan VTE Prophylaxis VTE Prophylaxis Intervention: other Lines/Catheters IV C[facility]ter Type (from [facility]): Peripheral IV Urinary Cath still in place: No Assessment/Plan Chief Complaint/Hosp Course IMPRESSION: 1. The patient has ABD mass. 2. Possible diverticulitis. 3. Rule out abscess. 4. History of diverticulitis. 5 S/P CT GUIDED DRAINAGE 6 adrenal mass observe for now PLAN ANTIBIOTIC PER SURGERY urology once stable Problems: Subjective 24 Hr Interval Summary Respiratory: no complaints Cardiovascular: no complaints Genitourinary: no complaints Exam/Review of Systems Vital Signs Vitals Vital Signs Date Time Temp Pulse Resp B/P Pulse Ox O2 Delivery O2 Flow Rate FiO2 04/08/16 19:39 97.7 78 20 117/55 94 04/06/16 12:00 Nasal Cannula 2 Intake and Output 04/07/16 04/07/16 04/08/16 15:00 23:00 07:00 Intake Total 2270 ml 840 ml Output Total 100 ml 75 ml Balance 2170 ml 765 ml Exam Cardiovascular: regular rate and rhythm Gastrointestinal: soft Musculoskeletal: nl extremities to inspection Extremities: normal pulses Results Result Diagram: 04/07/16 0455 04/07/16 0455 Medications Medications Current Medications Dextrose/Sodium Chloride (D5-1/2ns) 1,000 ml @ 60 mls/hr [id number] IV Last administered on 04/08/16 21:59; Admin Dose 60 MLS/HR; Start 04/05/16 at 17:36 Ondansetron HCl (Zofran Inj) 4 mg Q6H PRN IV NAUSEA AND/OR VOMITING; Start 04/05 at 18:00 Acetaminophen (Tylenol Tab) 650 mg Q6H PRN PO PAIN LEVEL 1-3 OR FEVER Last administered on 04/07/16 16:27; Admin Dose 650 MG; Start 04/05/16 at 18:00 Magnesium Hydroxide (Milk Of Mag) 30 ml DAILY PRN PO CONSTIPATION; Start at 18:00 Zolpidem Tartrate (Ambien) 5 mg QHS PRN PO SLEEP Last administered on 04/08/16 01:33; Admin Dose 5 MG; Start 04/05/16 at 18:00 Pantoprazole 40 mg 40 mg DAILY@06 IV Last administered on 04/08/16 05:41; Admin Dose 40 MG; Start 04/06/16 at 06:00 Metronidazole 100 ml @ 100 mls/hr Q8 IVPB Last administered on 04/08/16 21:59 ; Admin Dose 100 MLS/HR; Start 04/05/16 at 22:00 Ciprofloxacin/ Dextrose (Cipro Ivpb) 200 ml @ 200 mls/hr Q12 IVPB Last administered on 04/08/16 20:47; Admin Dose 200 MLS/HR; Start 04/05/16 at 21:00 Morphine Sulfate (morphine) 3 mg Q3H PRN IV PAIN Last administered on 04/08/16 12:49; Admin Dose 3 MG; Start 04/05/16 at 21:00 AIMEE PEREZ MD Apr 08, 2016 23:28
[2016-04-09] MEDS: PANTOPRAZOLE 40 MG INJ IV SCH (05:59)
[2016-04-09] MEDS: metroNIDAZOLE 500 MG/NS (PMX) 100 ML IVPB SCH ×3 (05:59→21:36)
[2016-04-09 08:19] VITALS: BP 117/56; RESP 16
[2016-04-09] MEDS: CIPROFLOXACIN 400MG/D5W 200 ML IVPB SCH (08:55)
--- NOTE | 2016-04-09 15:27 | CONS ---
Date/Time of Note Date/Time of Note DATE: 04/09/16 TIME: 15:04 Assessment/Plan Assessment/Plan Chief Complaint/Hosp Course 60 yo female with 1.2 6. 2.6 x 2.3 x 1.8 cm mass measuring 80 HU extending laterally at the junction of the mid and superior pole of the right kidney suspicious for neoplasm -This is highly suspicious for a primary kidney cancer -This will need to be removed by urology by either partial or complete nephrectomy. Dr Noland has been consulted -at that time, depending on the pathology and if there is residual disease, pt would be a candidate for treatment 2. L Adrenal Adenoma -I have reviewed this with radiology and this adenoma appears benign. no further wokup is indicated for this at this time. 3. Abdominal Fluid collection, s/p CT guided drainage -will f/u cultures -f/u cytology to evaluate for underlying malignancy Approximately 40 min were spent at patient's bedside and in coordination of her care Problems: Consultation Date/Type/Reason Admit Date/Time Apr 05, 2016 at 14:49 Date of Consultation: Apr 09, 2016 Type of Consultation: oncology Reason for Consultation intraabdominal mass Referring Provider: AIMEE PEREZ Hx of Present Illness 60-year-old female with a history of diverticulitis in the past, presented with abdominal pain for the last couple of days. The patient has abdomen and pelvic CT done in the ER, shows a loculated intraperitoneal fluid collection lying superior to the bladder and adjacent to sigmoid colon measuring 13.6 x 8.2 x 7.6 cm in diameter which has since been diagnosed as an abscess and is s/ p CT guided drainage. Also seen on the scan 2.6 cm mass at the junction of the mid and superior pole of the right kidney suspicious for neoplasm. We have thus been consulted for further workup. Since CT guided drainage of the fluid collection patient's fluid collection. . Constitutional: chills, diaphoresis, febrile Eyes: No discharge, No redness ENT: No bleeding, No congestion, No discharge, No dysphagia Respiratory: no complaints Cardiovascular: no complaints Gastrointestinal: no complaints Genitourinary: no complaints Musculoskeletal: no complaints Skin: No bruising, No erythema, No pruritis, No rash Neurologic: No confusion, No dizziness, No headache Endocrine: No polydypsia, No polyuria Lymphatic: No adenopathy, No tender nodes Psychological: anxiety Immunologic: No pruritis, No rhinitis Past Medical History history of tremor, history of asthma. h/o diverticulitis Past Surgical History sp CT guided abscess drainage Family History Significant Family History: no pertinent family hx Social History Alcohol Use: none Smoking Status: Former smoker (in her younger ages) Drug Use: none Exam/Review of Systems Vital Signs Vitals Vital Signs Date Time Temp Pulse Resp B/P Pulse Ox O2 Delivery O2 Flow Rate FiO2 04/09/16 08:19 98.3 65 16 117/56 97 04/06/16 12:00 Nasal Cannula 2 Intake and Output 04/08/16 04/08/16 04/09/16 15:00 23:00 07:00 Intake Total 2580 ml 1590 ml Output Total 230 ml 85 ml Balance 2350 ml 1505 ml Exam Constitutional: alert, oriented Psych: no complaints Head: atraumatic, normocephalic Eyes: nl conjunctiva ENMT: nl external ears & nose Neck: supple Respiratory: clear to auscultation Cardiovascular: nl pulses, regular rate and rhythm Gastrointestinal: soft Musculoskeletal: nl extremities to inspection, nl gait and stance Extremities: normal pulses Results Result Diagram: 04/07/16 0455 04/07/16 0455 Medications Medications Current Medications Dextrose/Sodium Chloride (D5-1/2ns) 1,000 ml @ 60 mls/hr [id number] IV Last administered on 04/08/16 21:59; Admin Dose 60 MLS/HR; Start 04/05/16 at 17:36 Ondansetron HCl (Zofran Inj) 4 mg Q6H PRN IV NAUSEA AND/OR VOMITING; Start 04/05 at 18:00 Acetaminophen (Tylenol Tab) 650 mg Q6H PRN PO PAIN LEVEL 1-3 OR FEVER Last administered on 04/07/16 16:27; Admin Dose 650 MG; Start 04/05/16 at 18:00 Magnesium Hydroxide (Milk Of Mag) 30 ml DAILY PRN PO CONSTIPATION; Start at 18:00 Zolpidem Tartrate (Ambien) 5 mg QHS PRN PO SLEEP Last administered on 04/08/16 01:33; Admin Dose 5 MG; Start 04/05/16 at 18:00 Pantoprazole 40 mg 40 mg DAILY@06 IV Last administered on 04/09/16 05:59; Admin Dose 40 MG; Start 04/06/16 at 06:00 Metronidazole 100 ml @ 100 mls/hr Q8 IVPB Last administered on 04/09/16 13:47 ; Admin Dose 100 MLS/HR; Start 04/05/16 at 22:00 Ciprofloxacin/ Dextrose (Cipro Ivpb) 200 ml @ 200 mls/hr Q12 IVPB Last administered on 04/09/16 08:55; Admin Dose 200 MLS/HR; Start 04/05/16 at 21:00 Morphine Sulfate (morphine) 3 mg Q3H PRN IV PAIN Last administered on 04/08/16 12:49; Admin Dose 3 MG; Start 04/05/16 at 21:00 JENNI PARKER M.D. Apr 09, 2016 15:15
[2016-04-09 20:00] VITALS: BP 124/57; RESP 19
--- NOTE | 2016-04-09 20:11 | CONS ---
DATE OF ADMISSION: 04/05/2016 DATE OF CONSULTATION: 04/09/2016 REQUESTING PHYSICIAN: Dr. Saleem Perez. Dear Saleem: Thank you for asking me to see this patient in urological consultation. HISTORY OF PRESENT ILLNESS: This is a 60-year-old female who was brought to [facility], transferred from another hospital. In fact, she was at [facility] because of abdomi nal pain. She was found to have an abdominal abscess, which was drained under CT guidance. The [facility] had a CT scan of the abdomen and pelvis and that showed a tumor in the right kidney. Therefore , a urological consultation was requested. PAST MEDICAL HISTORY: Significant for history of tremors and history of diverticulitis. PAST SURGICAL HISTORY: She did have a hysterectomy and oophorectomy. She is a 4, para 4 wi th 4 normal deliveries. SOCIAL HISTORY: She does not smoke, does not drink any alcohol, and there is no history of drug abu se. FAMILY HISTORY: Positive for hypertension and breast cancer. MEDICATIONS: 1. Pantoprazole. 2. Flagyl. 3. Cipro. 4. Morphine p.r.n. 5. Zofran p.r.n. 6. Tylenol p.r.n. 7. Milk of magnesia p.r.n. 8. Ambien p.r.n. PHYSICAL EXAMINATION: GENERAL: Reveals a 60-year-old female. She weighs 96 kg. She is 63 inches tall. VITAL SIGNS: Her temperature is 98.3, pulse is 65, respirations 16, blood pressure 117/56. HEAD AND NECK: Unremarkable. ABDOMEN: Soft. Presently, she has the drainage of the abscess in the lower part of the abdomen. PELVIC: Revealed no mass and no discharge. She does have a scar in the suprapubic area from her hy sterectomy. EXTREMITIES: Normal. LABORATORY DATA: Her CBC shows a white count of 9.3. It was 10.9 on admission. Hemoglobin 10.4. It was 14.4 on admission. The hematocrit 33.1. BUN is 9, creatinine 0.71. Electrolytes are normal . Urinalysis showed 1+ occult blood and 0 to 2 RBCs. Urine culture no growth after 48 hours. The patient reports also that she has, in addition to the hysterectomy and bilateral oophorectomy, she d id have a bladder suspension, but she still has some stress incontinence as well. The CT scan of th e abdomen and pelvis was reported as she has a 2.6 x 2.3 x 1.8 cm mass extending into the lateral ri ght kidney at the junction of the superior and mid pole, which ____, and she does have a 3 mm cyst i n the superior pole of the left kidney. There is no hydronephrosis. There are no stones. IMPRESSION: A 2.6 x 2.3 x 1.8 mass in the right kidney between the upper and mid pole of the right kidney, looks more also exophytic. This is suspicious for renal cell carcinoma. RECOMMENDATION: At the present, patient has to be treated for her abdominal abscess and that was dr zambrano and is growing E. coli, so she will be treated for that. Once she is stable, then she could b e discharged home and then later on she will need to undergo a partial nephrectomy for that tumor. That could be done laparoscopically, and therefore, I would recommend that she would be then referre d to a urologist who does laparoscopic surgery. Dictated By: DARREN TELLES MD BB/DRE Conf#: [id number] DID#: [id number] CC: SALEEM PEREZ MD;*[facility]*
--- NOTE | 2016-04-09 22:05 | PN ---
Date/Time of Note Date/Time of Note DATE: 04/09/16 TIME: 22:04 Assessment/Plan VTE Prophylaxis VTE Prophylaxis Intervention: other Lines/Catheters IV Catheter Type (from [facility]): Peripheral IV Urinary Cath still in place: No Assessment/Plan Chief Complaint/Hosp Course IMPRESSION: 1. The patient has ABD mass. 2. Possible diverticulitis. 3. Rule out abscess. 4. History of diverticulitis. 5 S/P CT GUIDED DRAINAGE 6 adrenal mass observe for now 7 pelvic and renal mass PLAN ANTIBIOTIC PER SURGERY urology and oncology Problems: Subjective 24 Hr Interval Summary Respiratory: no complaints Cardiovascular: no complaints Gastrointestinal: no complaints Exam/Review of Systems Vital Signs Vitals Vital Signs Date Time Temp Pulse Resp B/P Pulse Ox O2 Delivery O2 Flow Rate FiO2 04/09/16 20:00 98.3 87 19 124/57 98 04/06/16 12:00 Nasal Cannula 2 Intake and Output 04/08/16 04/08/16 04/09/16 15:00 23:00 07:00 Intake Total 2580 ml 1590 ml Output Total 230 ml 85 ml Balance 2350 ml 1505 ml Exam Neck: supple Respiratory: clear to auscultation Cardiovascular: regular rate and rhythm Gastrointestinal: soft Musculoskeletal: nl extremities to inspection Extremities: normal pulses Results Result Diagram: 04/07/16 0455 04/07/16 0455 Medications Medications Current Medications Dextrose/Sodium Chloride (D5-1/2ns) 1,000 ml @ 60 mls/hr [id number] IV Last administered on 04/08/16 21:59; Admin Dose 60 MLS/HR; Start 04/05/16 at 17:36 Ondansetron HCl (Zofran Inj) 4 mg Q6H PRN IV NAUSEA AND/OR VOMITING; Start 04/05 at 18:00 Acetaminophen (Tylenol Tab) 650 mg Q6H PRN PO PAIN LEVEL 1-3 OR FEVER Last administered on 04/07/16 16:27; Admin Dose 650 MG; Start 04/05/16 at 18:00 Magnesium Hydroxide (Milk Of Mag) 30 ml DAILY PRN PO CONSTIPATION; Start at 18:00 Zolpidem Tartrate (Ambien) 5 mg QHS PRN PO SLEEP Last administered on 04/08/16 01:33; Admin Dose 5 MG; Start 04/05/16 at 18:00 Pantoprazole 40 mg 40 mg DAILY@06 IV Last administered on 04/09/16 05:59; Admin Dose 40 MG; Start 04/06/16 at 06:00 Metronidazole (Flagyl 500 Mg (Pmx)) 100 ml @ 100 mls/hr Q8 IVPB Last administered on 04/09/16 21:36; Admin Dose 100 MLS/HR; Start 04/05/16 at 22:00 Morphine Sulfate 3 mg 3 mg Q3H PRN IV PAIN Last administered on 04/08/16 12:49 ; Admin Dose 3 MG; Start 04/05/16 at 21:00 Ceftriaxone Sodium (Rocephin) 50 ml @ 100 mls/hr Q24H IVPB ; Start 04/09/16 at 20:00 AIMEE PEREZ MD Apr 09, 2016 22:05
--- NOTE | 2016-04-09 22:32 | PN ---
Date/Time of Note Date/Time of Note DATE: 04/09/16 TIME: 22:30 Assessment/Plan Lines/Catheters IV Catheter Type (from [facility]): Peripheral IV Parker in Place (from [facility]): No Assessment/Plan Chief Complaint/Hosp Course 1. Abdominal pain with large fluid collection (13.6 x 8.2 x 7.6 cm), ? abscess. DDx of source: Perforated diverticulitis versus perforated appendicitis versus cystic tumor versus other. s/p IR percutaneous drain placed 2/3. -Diet as tolerated -Antibiotics -Cultures cytology 2. Hx of diverticulosis and diverticulitis -As above 3. BMI 37 -Nutrition optimization encouraged -Exercise encouraged 4. Leukocytosis and lactic acidosis with probable early sepsis secondary to above. Resolved -As above -Supportive measures 5. Left adrenal adenoma -Workup per endocrine and oncology appreciated > no further w/u per Oncology 6. 2.6 x 2.3 x 1.8 cm mass measuring 80 HU extending laterally at the junction of the mid and superior pole of the right kidney suspicious for neoplasm -Workup per urology and oncology appreciated > eventual partial nephrectomy after acute process resolves. 7. Hepatomegaly with hepatic cyst -Nutrition and weight optimization 8. Tremors -Medical management Thank you, Problems: Subjective 24 Hr Interval Summary Appreciate Oncology and Urology inputs. s/p IR perc drain 2/3. No fevers or chills. Still has abdominal pain but improving. No nausea vomiting. No chest pain or shortness of breath. No visual or neurologic changes. No dysuria. Bowel function. Exam/Review of Systems Vital Signs Vitals Vital Signs Date Time Temp Pulse Resp B/P Pulse Ox O2 Delivery O2 Flow Rate FiO2 04/09/16 20:00 98.3 87 19 124/57 98 04/06/16 12:00 Nasal Cannula 2 Intake and Output 04/08/16 04/08/16 04/09/16 15:00 23:00 07:00 Intake Total 2580 ml 1590 ml Output Total 230 ml 85 ml Balance 2350 ml 1505 ml Exam Free Text/Dictation Constitutional: alert, obese, oriented, No distress Psych: anxiety Head: atraumatic, normocephalic Eyes: EOMI, PERRL, nl conjunctiva, No icteric ENMT: nl external ears & nose, nl lips & teeth, No mucosa pink and moist Neck: non-tender, supple Respiratory: normal air movement, No congested cough, No labored breathing Cardiovascular: No edema, No regular rate and rhythm Gastrointestinal: distended, tender, No rebound or guarding. Left sided drain. Musculoskeletal: nl extremities to inspection, No joint tenderness Extremities: normal pulses, No calf tenderness, No cyanosis Neurological: nl mental status, nl speech, nl strength. Tremors Skin: nl turgor, No diaphoresis, No rash or lesions Lymph: nl lymph nodes, nontender Results Result Diagram: 04/07/16 0455 04/07/16 0455 FLORIAN TABOR MD Apr 09, 2016 22:32
[2016-04-09] MEDS: CEFTRIAXONE 2 GM/50 ML (PMX) 50 ML IVPB SCH (22:40)
[2016-04-09] MEDS: DEXTROSE 5%-0.45% NACL 1,000 ML IV SCH (23:44)
--- NOTE | 2016-04-10 04:55 | CONS ---
DATE OF ADMISSION: 04/05/2016 DATE OF CONSULTATION: INFECTIOUS DISEASE CONSULTATION REQUESTING PHYSICIAN: Saleem Hodges MD HISTORY OF PRESENT ILLNESS: The patient is a 60-year-old female who was admitted on 017 with a chief complaint of abdominal pain of 2 months' standing described as lower abdominal and epigastric which has gradually become more progressively severe. The patient was initially seen at the beginning of this period and diagnosed with a urinary tract infection, but continued to have alba oing pain. The patient's pain was described as being aching and pressure-like and tended to radiate to the whole abdomen. She had some constipation; no nausea or vomiting. The patient has had a his tory of asthma, diverticulitis. She also had intermittent fever and chills. Upon arrival, she was found to have a white count of 10,700 with 13% bands. Her hemoglobin was 14.8 grams. Glucose 348. Creatinine 0.75. Lactic acid was 3.5 and her temperature was 101.7. She had a CT scan of her abdo men which revealed a large fluid collection, 13 x 0.6 x 8.2 x 7.6 above the bladder and adjacent to the sigmoid colon. She also had what was initially interpreted as a left adrenal adenoma, 2.6 x 2.3 x 1.8 cm. Also, there was noted to be a right renal mass at the junction of the upper and mid pole of the right kidney. The patient was initially begun treatment with Zosyn and metronidazole and th en this was changed to Cipro. Culture of the fluid grew gamma hemolytic Streptococcus species which only grew in broth and E. Coli which was multiple drug resistant, sensitive to cefoxitin, aminoglyc osides, but was not tested for Zosyn or carbapenem as of this dictation. The patient's temperature has come down and not gone up since admission. Her white count has fallen to 9300, but there has been no white count for about 3 days. She is due for another CT scan. She h as a drain which today is draining mary-colored, clear drainage from her right lower quadrant. The patient was seen by Dr. Baer who states that the patient probably has a renal cell carcinoma of t he right kidney and that the left adrenal adenoma is benign and not working up at this time. PHYSICAL EXAMINATION GENERAL: Reveals a pleasant, morbidly obese female, surrounded by her family who are very cooperative and helpful with [place]raini translation. The patient is in no acute distress. VITAL SIGNS: She is not febrile. HEENT: Her pupils are equal, round and reactive to light. Extraocular movements are full. CHEST: Clear to auscultation. HEART: Regular without gallop, murmur or rub. ABDOMEN: Protuberant, obese. Bowel sounds are present. She has tenderness in the left upper and le ft lower quadrants and somewhat across the midline from the left lower quadrant to the right lower q uadrant. EXTREMITIES: Examination reveals no edema, cyanosis or clubbing. INITIAL IMPRESSION: 1. Perforated diverticular abscess, left lower quadrant. 2. Probable renal cell carcinoma, right kidney. 3. Incidental ____, left adrenal gland. 4. Diabetes mellitus. 5. Asthma. 6. Morbid obesity. RECOMMENDATIONS: I would change the antibiotics to ceftriaxone 2 grams IV daily and Flagyl 500 mg e very 8 hours as has already been ordered. I would discontinue Cipro. I do not believe there is any chance of cross-reacting with penicillin, even though there is no clear-cut penicillin allergy in t he material that I have read. ____is up in the left hand side, not significant and not likely to be cross-reactivity. Dictated By: Kavita HOYT/DRE Conf#: [id number] DID#: [id number]
[2016-04-10 05:39] LABS: BASOPHILS % 0.3 % (0.0-2.0); EOSINOPHILS # 0.2 10^3/ul (0.0-0.5); HEMATOCRIT 32.9 % (37.0-47.0); HEMOGLOBIN 10.8 g/dl (12.0-16.0); LYMPHOCYTES # 0.8 10^3/ul (0.8-2.9); LYMPHOCYTES % 10.4 % (15.0-51.0); MEAN CORPUSCULAR HEMOGLOBIN 26.9 pg (29.0-33.0); MEAN CORPUSCULAR HGB CONC 32.7 g/dl (32.0-37.0); MEAN CORPUSCULAR VOLUME 82.1 fl (82.0-101.0); MEAN PLATELET VOLUME 7.2 fl (7.4-10.4); MONOCYTE # 0.5 10^3/ul (0.3-0.9); MONOCYTES % 7.1 % (0.0-11.0); NEUTROPHIL # 5.9 10^3/ul (1.6-7.5); NEUTROPHILS % 79.2 % (39.0-77.0); PLATELET COUNT 369 10^3/UL (140-440); RED BLOOD COUNT 4.01 10^6/ul (4.20-5.40); RED CELL DISTRIBUTION WIDTH 16.7 % (11.5-14.5); UNCORRECTED WBC 7.4 10^3/ul (4.8-10.8); WHITE BLOOD COUNT 7.4 10^3/ul (4.8-10.8)
[2016-04-10] MEDS: metroNIDAZOLE 500 MG/NS (PMX) 100 ML IVPB SCH ×3 (05:43→22:21)
[2016-04-10] MEDS: PANTOPRAZOLE 40 MG INJ IV SCH (05:43)
[2016-04-10 05:50] LABS: POTASSIUM 3.1 mmol/L (3.5-5.1)
[2016-04-10 05:52] LABS: ALBUMIN/GLOBULIN RATIO 0.88; CREATININE 0.55 mg/dl (0.44-1.00); TOTAL PROTEIN 6.4 g/dl (6.1-8.1)
[2016-04-10 05:53] LABS: CALCIUM 8.5 mg/dl (8.4-10.2)
[2016-04-10 06:05] LABS: CONDITION 1; LH ANALYZER COMMENTS 1
[2016-04-10 08:50] VITALS: BP 125/56; RESP 16
--- NOTE | 2016-04-10 10:53 | CONS ---
Date/Time of Note Date/Time of Note DATE: 04/10/16 TIME: 10:49 Assessment/Plan Assessment/Plan Chief Complaint/Hosp Course 60 yo female with 1.2 6. 2.6 x 2.3 x 1.8 cm mass measuring 80 HU extending laterally at the junction of the mid and superior pole of the right kidney suspicious for neoplasm -This is highly suspicious for a primary kidney cancer -This will need to be removed by urology by either partial or complete nephrectomy. appreciate Dr. Noland's recommendations -will place case management consult for patient to be seen at [facility] as an out patient 2. L Adrenal Adenoma -I have reviewed this with radiology and this adenoma appears benign. no further wokup is indicated for this at this time. 3. Abdominal Fluid collection, s/p CT guided drainage -will f/u cultures -f/u cytology to evaluate for underlying malignancy Approximately 40 min were spent at patient's bedside and in coordination of her care Problems: Consultation Date/Type/Reason Admit Date/Time Apr 05, 2016 at 14:49 Initial Consult Date 04/09/16 Type of Consultation: oncology Reason for Consultation kidney mass Referring Provider: AIMEE PEREZ MD 24 HR Interval Summary Free Text/Dictation pt continues on antibiotics. now on ceftriaxone 2 grams IV daily and Flagyl 500 mg every 8 hours. seen by urology Exam/Review of Systems Vital Signs Vitals Vital Signs Date Time Temp Pulse Resp B/P Pulse Ox O2 Delivery O2 Flow Rate FiO2 04/10/16 08:50 98.4 67 16 125/56 99 04/06/16 12:00 Nasal Cannula 2 Intake and Output 04/09/16 04/09/16 04/10/16 15:00 23:00 07:00 Intake Total 300 ml 1490 ml 1340 ml Output Total 1100 ml 350 ml Balance 300 ml 390 ml 990 ml Exam Constitutional: alert Psych: nl mood/affect, no complaints Head: normocephalic Eyes: nl conjunctiva ENMT: nl external ears & nose Respiratory: clear to auscultation, normal air movement Cardiovascular: regular rate and rhythm Gastrointestinal: other (mildly tender, drain in place), soft Musculoskeletal: nl extremities to inspection, nl gait and stance Extremities: normal pulses Results Result Diagram: 04/10/16 0428 04/10/16 0425 Results 24 hrs Laboratory Tests Test 04/09/16 23:20 04/10/16 04:25 04/10/16 04:28 Carcinoembryonic Antigen 24.0 H Random Cortisol 13.2 Alanine Aminotransferase (ALT/SGPT) 24 Albumin 3.0 L Albumin/Globulin Ratio 0.88 Alkaline Phosphatase 87 Anion Gap 16 Aspartate Amino Transf (AST/SGOT) 28 Blood Urea Nitrogen 4 L Calcium Level 8.5 Carbon Dioxide Level 31 Chloride Level 100 Creatinine 0.55 Direct Bilirubin 0.00 Globulin 3.40 H Glucose Level 106 Indirect Bilirubin 0.0 Potassium Level 3.1 L Sodium Level 144 Total Bilirubin 0.0 L Total Protein 6.4 Basophils # 0.0 Basophils % 0.3 Blood Morphology Comment Eosinophils # 0.2 Eosinophils % 3.0 Hematocrit 32.9 L Hemoglobin 10.8 L Lymphocytes # 0.8 Lymphocytes % 10.4 L Mean Corpuscular Hemoglobin 26.9 L Mean Corpuscular Hemoglobin Concent 32.7 Mean Corpuscular Volume 82.1 Mean Platelet Volume 7.2 L Monocytes # 0.5 Monocytes % 7.1 Neutrophils # 5.9 Neutrophils % 79.2 H Nucleated Red Blood Cells # 0.0 Nucleated Red Blood Cells % 0.0 Platelet Count 369 # Red Blood Count 4.01 L Red Cell Distribution Width 16.7 H White Blood Count 7.4 # Medications Medications Current Medications Dextrose/Sodium Chloride (D5-1/2ns) 1,000 ml @ 60 mls/hr [id number] IV Last administered on 04/09/16 23:44; Admin Dose 60 MLS/HR; Start 04/05/16 at 17:36 Ondansetron HCl (Zofran Inj) 4 mg Q6H PRN IV NAUSEA AND/OR VOMITING; Start 04/05 at 18:00 Acetaminophen (Tylenol Tab) 650 mg Q6H PRN PO PAIN LEVEL 1-3 OR FEVER Last administered on 04/07/16 16:27; Admin Dose 650 MG; Start 04/05/16 at 18:00 Magnesium Hydroxide (Milk Of Mag) 30 ml DAILY PRN PO CONSTIPATION; Start at 18:00 Zolpidem Tartrate (Ambien) 5 mg QHS PRN PO SLEEP Last administered on 04/08/16 01:33; Admin Dose 5 MG; Start 04/05/16 at 18:00 Pantoprazole 40 mg 40 mg DAILY@06 IV Last administered on 04/10/16 05:43; Admin Dose 40 MG; Start 04/06/16 at 06:00 Metronidazole (Flagyl 500 Mg (Pmx)) 100 ml @ 100 mls/hr Q8 IVPB Last administered on 04/10/16 05:43; Admin Dose 100 MLS/HR; Start 04/05/16 at 22:00 Morphine Sulfate 3 mg 3 mg Q3H PRN IV PAIN Last administered on 04/08/16 12:49 ; Admin Dose 3 MG; Start 04/05/16 at 21:00 Ceftriaxone Sodium (Rocephin) 50 ml @ 100 mls/hr Q24H IVPB Last administered on 04/09/16 22:40; Admin Dose 100 MLS/HR; Start 04/09/16 at 20:00 JENNI PARKER M.D. Apr 10, 2016 10:53
[2016-04-10] MEDS: DEXTROSE 5%-0.45% NACL 1,000 ML IV SCH ×2 (14:16→23:39)
[2016-04-10] MEDS ORDERED: POTASSIUM CHLORIDE (SR) 20 MEQ TAB PO STA (14:25)
[2016-04-10] MEDS ORDERED: PHENOL 1.4% SOLN 180 ML BTL MT PRN (14:30)
--- NOTE | 2016-04-10 14:44 | PN ---
Date/Time of Note Date/Time of Note DATE: 04/10/16 TIME: 14:43 Assessment/Plan VTE Prophylaxis VTE Prophylaxis Intervention: other Lines/Catheters IV Catheter Type (from [facility]): Peripheral IV Urinary Cath still in place: No Assessment/Plan Chief Complaint/Hosp Course IMPRESSION: 1. The patient has ABD mass. 2. Possible diverticulitis. 3. Rule out abscess. 4. History of diverticulitis. 5 S/P CT GUIDED DRAINAGE 6 adrenal mass observe for now 7 pelvic and renal mass 8 elevated cea PLAN ANTIBIOTIC PER SURGERY urology and oncology dr agarwal to see Problems: Subjective 24 Hr Interval Summary Constitutional: no complaints Eyes: no complaints Exam/Review of Systems Vital Signs Vitals Vital Signs Date Time Temp Pulse Resp B/P Pulse Ox O2 Delivery O2 Flow Rate FiO2 04/10/16 08:50 98.4 67 16 125/56 99 04/06/16 12:00 Nasal Cannula 2 Intake and Output 04/09/16 04/09/16 04/10/16 15:00 23:00 07:00 Intake Total 300 ml 1490 ml 1340 ml Output Total 1100 ml 350 ml Balance 300 ml 390 ml 990 ml Exam Eyes: nl conjunctiva ENMT: nl external ears & nose Neck: supple Respiratory: clear to auscultation Cardiovascular: regular rate and rhythm Gastrointestinal: soft Musculoskeletal: nl extremities to inspection Extremities: normal pulses Results Result Diagram: 04/10/168 04/10/16 0425 Results 24 hrs Laboratory Tests Test 04/09/16 23:20 04/10/16 04:25 04/10/16 04:28 Carcinoembryonic Antigen 24.0 H Random Cortisol 13.2 Alanine Aminotransferase (ALT/SGPT) 24 Albumin 3.0 L Albumin/Globulin Ratio 0.88 Alkaline Phosphatase 87 Anion Gap 16 Aspartate Amino Transf (AST/SGOT) 28 Blood Urea Nitrogen 4 L Calcium Level 8.5 Carbon Dioxide Level 31 Chloride Level 100 Creatinine 0.55 Direct Bilirubin 0.00 Globulin 3.40 H Glucose Level 106 Indirect Bilirubin 0.0 Potassium Level 3.1 L Sodium Level 144 Total Bilirubin 0.0 L Total Protein 6.4 Basophils # 0.0 Basophils % 0.3 Blood Morphology Comment Eosinophils # 0.2 Eosinophils % 3.0 Hematocrit 32.9 L Hemoglobin 10.8 L Lymphocytes # 0.8 Lymphocytes % 10.4 L Mean Corpuscular Hemoglobin 26.9 L Mean Corpuscular Hemoglobin Concent 32.7 Mean Corpuscular Volume 82.1 Mean Platelet Volume 7.2 L Monocytes # 0.5 Monocytes % 7.1 Neutrophils # 5.9 Neutrophils % 79.2 H Nucleated Red Blood Cells # 0.0 Nucleated Red Blood Cells % 0.0 Platelet Count 369 # Red Blood Count 4.01 L Red Cell Distribution Width 16.7 H White Blood Count 7.4 # Medications Medications Current Medications Dextrose/Sodium Chloride (D5-1/2ns) 1,000 ml @ 60 mls/hr [id number] IV Last administered on 04/09/16 23:44; Admin Dose 60 MLS/HR; Start 04/05/16 at 17:36 Ondansetron HCl (Zofran Inj) 4 mg Q6H PRN IV NAUSEA AND/OR VOMITING; Start 04/05 at 18:00 Acetaminophen (Tylenol Tab) 650 mg Q6H PRN PO PAIN LEVEL 1-3 OR FEVER Last administered on 04/07/16 16:27; Admin Dose 650 MG; Start 04/05/16 at 18:00 Magnesium Hydroxide (Milk Of Mag) 30 ml DAILY PRN PO CONSTIPATION; Start at 18:00 Zolpidem Tartrate (Ambien) 5 mg QHS PRN PO SLEEP Last administered on 04/08/16 01:33; Admin Dose 5 MG; Start 04/05/16 at 18:00 Pantoprazole 40 mg 40 mg DAILY@06 IV Last administered on 04/10/16 05:43; Admin Dose 40 MG; Start 04/06/16 at 06:00 Metronidazole (Flagyl 500 Mg (Pmx)) 100 ml @ 100 mls/hr Q8 IVPB Last administered on 04/10/16 14:11; Admin Dose 100 MLS/HR; Start 04/05/16 at 22:00 Morphine Sulfate 3 mg 3 mg Q3H PRN IV PAIN Last administered on 04/08/16 12:49 ; Admin Dose 3 MG; Start 04/05/16 at 21:00 Ceftriaxone Sodium (Rocephin) 50 ml @ 100 mls/hr Q24H IVPB Last administered on 04/09/16 22:40; Admin Dose 100 MLS/HR; Start 04/09/16 at 20:00 Phenol (Chloraseptic Throat [place]) 2 spray Q2H PRN MT SORE THROAT; Start at 14:30 AIMEE PEREZ MD Apr 10, 2016 14:44
--- NOTE | 2016-04-10 19:13 | PN ---
Date/Time of Note Date/Time of Note DATE: 04/10/16 TIME: 19:13 Assessment/Plan Lines/Catheters IV Catheter Type (from [facility]): Peripheral IV Parker in Place (from [facility]): No Assessment/Plan Chief Complaint/Hosp Course 1. Abdominal pain with large fluid collection (13.6 x 8.2 x 7.6 cm), ? abscess. DDx of source: Perforated diverticulitis versus perforated appendicitis versus cystic tumor versus other. s/p IR percutaneous drain placed 2/3. -Diet as tolerated -Antibiotics -Cultures cytology 2. Hx of diverticulosis and diverticulitis -As above 3. BMI 37 -Nutrition optimization encouraged -Exercise encouraged 4. Leukocytosis and lactic acidosis with probable early sepsis secondary to above. Resolved -As above -Supportive measures 5. Left adrenal adenoma -Workup per endocrine and oncology appreciated > no further w/u per Oncology 6. 2.6 x 2.3 x 1.8 cm mass measuring 80 HU extending laterally at the junction of the mid and superior pole of the right kidney suspicious for neoplasm -Workup per urology and oncology appreciated > eventual partial nephrectomy after acute process resolves. 7. Hepatomegaly with hepatic cyst -Nutrition and weight optimization 8. Tremors -Medical management Thank you, Problems: Subjective 24 Hr Interval Summary No fevers or chills. Still has abdominal pain but improving. No nausea vomiting. No chest pain or shortness of breath. No visual or neurologic changes. No dysuria. Bowel function. Exam/Review of Systems Vital Signs Vitals Vital Signs Date Time Temp Pulse Resp B/P Pulse Ox O2 Delivery O2 Flow Rate FiO2 04/10/16 08:50 98.4 67 16 125/56 99 04/06/16 12:00 Nasal Cannula 2 Intake and Output 04/09/16 04/09/16 04/10/16 15:00 23:00 07:00 Intake Total 300 ml 1490 ml 1340 ml Output Total 1100 ml 350 ml Balance 300 ml 390 ml 990 ml Exam Free Text/Dictation Constitutional: alert, obese, oriented, No distress Psych: anxiety Head: atraumatic, normocephalic Eyes: EOMI, PERRL, nl conjunctiva, No icteric ENMT: nl external ears & nose, nl lips & teeth, No mucosa pink and moist Neck: non-tender, supple Respiratory: normal air movement, No congested cough, No labored breathing Cardiovascular: No edema, No regular rate and rhythm Gastrointestinal: distended, tender, No rebound or guarding. Left sided drain. Musculoskeletal: nl extremities to inspection, No joint tenderness Extremities: normal pulses, No calf tenderness, No cyanosis Neurological: nl mental status, nl speech, nl strength. Tremors Skin: nl turgor, No diaphoresis, No rash or lesions Lymph: nl lymph nodes, nontender Results Result Diagram: 04/10/16 0428 04/10/16 0425 FLORIAN TABOR MD Apr 10, 2016 19:13
[2016-04-10] MEDS: CEFTRIAXONE 2 GM/50 ML (PMX) 50 ML IVPB SCH (21:07)
--- NOTE | 2016-04-10 22:17 | CONS ---
DATE OF ADMISSION: 04/05/2016 DATE OF CONSULTATION: HISTORY OF PRESENT ILLNESS: A 60-year-old female with a history of diabetes mellitus, diverticulosi s, history of tremor, and bronchial asthma, presented to ER with abdominal pain for a few days. In the ER, she was evaluated. Her lactic acid level was high. The patient had a CAT scan done, which showed a large fluid collection with a surrounding inflammatory strand without any free air. The pa tient underwent drainage. The exact cause of the pelvic abscess is unclear whether this is due to t he diverticular rupture or appendiceal rupture or probable fistula. It is unclear. The patient als o had a kidney mass and also adrenal mass. The kidney mass is 2.6 in diameter and that is highly deng spicious for neoplasm for which patient needs surgery. Also had a left adrenal adenoma, which is be nign. GI consult was called in for a high CEA, which is 24. MEDICATIONS IN THE HOSPITAL: 1. Ceftriaxone. 2. Flagyl. PAST MEDICAL HISTORY: Tremor and diverticulitis. ALLERGIES: NONE. SOCIAL HISTORY: Negative. FAMILY HISTORY: Positive for hypertension and breast cancer. MEDICATIONS: As per reconciliation list. REVIEW OF SYSTEMS: Otherwise negative. PHYSICAL EXAMINATION: GENERAL: Alert, awake, not in distress. VITAL SIGNS: Stable. HEENT: Unremarkable. NECK: Supple. No thyromegaly, no lymphadenopathy. CARDIOVASCULAR: No murmur, gallop, or click. LUNGS: Clear. ABDOMEN: Soft. She has a drain. IMPRESSION: 1. Pelvic abscess, status post drainage done by IR. 2. History of diverticulitis. 3. High CEA. 4. Renal mass suspicious for malignancy. 5. Adrenal mass, which is benign. 6. Obesity. 7. Tremor. PLAN: To continue present care. The patient definitely would need a colonoscopy, but we will do it once her condition is more stable. Dictated By: MARISELA MYERS/NTS Conf#: [id number] DID#: [id number] CC: AIMEE PEREZ MD; MARISELA HELM MD;*EndCC*
--- NOTE | 2016-04-10 23:34 | PN ---
DATE: 04/10/2016 TIME OF ASSESSMENT: 11:30 a.m. SUBJECTIVE: No acute changes. The patient is lying comfortably in bed, no fevers, complaining of a bdominal pain. MICROBIOLOGY: Abdominal drainage growing E. coli, strep and Bacteroides fragilis. Blood cultures h ave been negative. ANTIMICROBIALS: The patient is on: 1. Rocephin. 2. Flagyl. ALLERGIES: PENICILLIN. PHYSICAL EXAMINATION: GENERAL: This is a morbidly obese elderly woman who is in no distress. HEENT: Head atraumatic, normocephalic. Sclerae anicteric. Buccal mucosa dry. NECK: Supple. Trachea midline. CHEST: Rise symmetrical. Breath sounds clear. HEART: S1, S2. ABDOMEN: Soft. Bowel tones present. EXTREMITIES: Without cyanosis. SKIN: Without cyanosis. The patient has left-sided intra-abdominal drainage catheter. ASSESSMENT: 1. Abdominal pain with large fluid collection, status post CT-guided drainage with placement of cat heter and fluid culture growing Escherichia coli, streptococcus and Bacteroides fragilis, covered wi th Flagyl, Rocephin. 2. Morbid obesity. 3. Systemic inflammatory response syndrome. 4. Renal mass suspicious for malignancy. 5. Anemia. PLAN: The patient remains stable, followed by multiple consultants. Cytology of the abdominal flui d revealed no malignancy. Continue antibiotics. Follow urology, oncology recommendations. Dictated By: AVIVA PACKER IMMIGRATION INSPECTOR for ALIYA KEVIN/NTS Conf#: [id number] DID#: [id number]
[2016-04-11] MEDS: PANTOPRAZOLE 40 MG INJ IV SCH (05:11)
[2016-04-11] MEDS: metroNIDAZOLE 500 MG/NS (PMX) 100 ML IVPB SCH ×3 (05:12→22:05)
[2016-04-11 05:24] LABS: POTASSIUM 3.2 mmol/L (3.5-5.1)
[2016-04-11 05:27] LABS: CALCIUM 8.5 mg/dl (8.4-10.2); CREATININE 0.56 mg/dl (0.44-1.00)
[2016-04-11 08:22] VITALS: BP 131/58; RESP 16
[2016-04-11] MEDS: ACETAMINOPHEN 325 MG TAB PO PRN ×2 (10:15→23:08)
[2016-04-11] MEDS ORDERED: POTASSIUM CHLORIDE (SR) 10 MEQ TAB PO ONE (11:00)
--- NOTE | 2016-04-11 11:33 | CONS ---
Date/Time of Note Date/Time of Note DATE: 04/11/16 TIME: 11:32 Assessment/Plan Assessment/Plan Chief Complaint/Hosp Course 60 yo female with 1.2 6. 2.6 x 2.3 x 1.8 cm mass measuring 80 HU extending laterally at the junction of the mid and superior pole of the right kidney suspicious for neoplasm -This is highly suspicious for a primary kidney cancer -This will need to be removed by urology by either partial or complete nephrectomy. appreciate Dr. Noland's recommendations -will place case management consult for patient to be seen at [facility] as an out patient 2. L Adrenal Adenoma -I have reviewed this with radiology and this adenoma appears benign. no further wokup is indicated for this at this time. 3. Abdominal Fluid collection, s/p CT guided drainage. cytology negative for malignancy -will f/u cultures -continue IV antibiotics Approximately 40 min were spent at patient's bedside and in coordination of her care Problems: Consultation Date/Type/Reason Admit Date/Time Apr 05, 2016 at 14:49 Initial Consult Date 04/09/16 Type of Consultation: oncology Reason for Consultation kidney mass Referring Provider: AIMEE PEREZ MD 24 HR Interval Summary Free Text/Dictation no acute overnight events. drain still in place. on IV antibiotics Exam/Review of Systems Vital Signs Vitals Vital Signs Date Time Temp Pulse Resp B/P Pulse Ox O2 Delivery O2 Flow Rate FiO2 04/11/16 08:22 98.5 74 16 131/58 97 Intake and Output 04/10/16 04/10/16 04/11/16 15:00 23:00 07:00 Intake Total 100 ml 1380 ml 1220 ml Output Total 1170 ml 540 ml Balance 100 ml 210 ml 680 ml Exam Constitutional: alert, oriented Psych: anxiety Head: normocephalic Eyes: nl conjunctiva ENMT: nl external ears & nose Neck: non-tender, supple Respiratory: clear to auscultation Cardiovascular: regular rate and rhythm Gastrointestinal: other (drain in place) Musculoskeletal: nl extremities to inspection, nl gait and stance Extremities: normal pulses Results Result Diagram: 04/10/16 0428 04/11/16 0442 Results 24 hrs Laboratory Tests Test 04/11/16 04:42 Anion Gap 13 Blood Urea Nitrogen 4 L Calcium Level 8.5 Carbon Dioxide Level 31 Chloride Level 102 Creatinine 0.56 Glucose Level 107 Potassium Level 3.2 L Sodium Level 143 Medications Medications Current Medications Dextrose/Sodium Chloride (D5-1/2ns) 1,000 ml @ 60 mls/hr [id number] IV Last administered on 04/10/16 23:39; Admin Dose 60 MLS/HR; Start 04/05/16 at 17:36 Ondansetron HCl (Zofran Inj) 4 mg Q6H PRN IV NAUSEA AND/OR VOMITING; Start 04/05 at 18:00 Acetaminophen (Tylenol Tab) 650 mg Q6H PRN PO PAIN LEVEL 1-3 OR FEVER Last administered on 04/11/16 10:15; Admin Dose 650 MG; Start 04/05/16 at 18:00 Magnesium Hydroxide (Milk Of Mag) 30 ml DAILY PRN PO CONSTIPATION; Start at 18:00 Zolpidem Tartrate (Ambien) 5 mg QHS PRN PO SLEEP Last administered on 04/08/16 01:33; Admin Dose 5 MG; Start 04/05/16 at 18:00 Pantoprazole 40 mg 40 mg DAILY@06 IV Last administered on 04/11/16 05:11; Admin Dose 40 MG; Start 04/06/16 at 06:00 Metronidazole (Flagyl 500 Mg (Pmx)) 100 ml @ 100 mls/hr Q8 IVPB Last administered on 04/11/16 05:12; Admin Dose 100 MLS/HR; Start 04/05/16 at 22:00 Morphine Sulfate 3 mg 3 mg Q3H PRN IV PAIN Last administered on 04/08/16 12:49 ; Admin Dose 3 MG; Start 04/05/16 at 21:00 Ceftriaxone Sodium (Rocephin) 50 ml @ 100 mls/hr Q24H IVPB Last administered on 04/10/16 21:07; Admin Dose 100 MLS/HR; Start 04/09/16 at 20:00 Phenol (Chloraseptic Throat [place]) 2 spray Q2H PRN MT SORE THROAT; Start at 14:30 JENNI PARKER M.D. Apr 11, 2016 11:33
--- NOTE | 2016-04-11 16:29 | CONS ---
Date/Time of Note Date/Time of Note DATE: 04/11/16 TIME: 16:28 Assessment/Plan Assessment/Plan Chief Complaint/Hosp Course SUBJECTIVE: No acute changes. The patient is lying comfortably in bed, feels better, no fevers MICROBIOLOGY: Abdominal drainage growing E. coli, strep and Bacteroides fragilis. Blood cultures have been negative. ANTIMICROBIALS: The patient is on: 1. Rocephin. 2. Flagyl. ALLERGIES: PENICILLIN. PHYSICAL EXAMINATION: GENERAL: This is a morbidly obese elderly woman who is in no distress. HEENT: Head atraumatic, normocephalic. Sclerae anicteric. Buccal mucosa dry. NECK: Supple. Trachea midline. CHEST: Rise symmetrical. Breath sounds clear. HEART: S1, S2. ABDOMEN: Soft. Bowel tones present. EXTREMITIES: Without cyanosis. SKIN: Without cyanosis. The patient has left-sided intra-abdominal drainage catheter. ASSESSMENT: 1. Abdominal pain with large fluid collection, status post CT-guided drainage with placement of catheter and fluid culture growing Escherichia coli, streptococcus and Bacteroides fragilis, covered with Flagyl, Rocephin. 2. Morbid obesity. 3. Systemic inflammatory response syndrome. 4. Renal mass suspicious for malignancy. 5. Anemia. PLAN: The patient remains stable, overall improving in terms of her pain, followed by multiple consultants. Cytology of the abdominal fluid revealed no malignancy. Continue antibiotics. Follow urology, oncology recommendations. [facility] staff Problems: Consultation Date/Type/Reason Admit Date/Time Apr 05, 2016 at 14:49 Initial Consult Date 04/09/16 Type of Consultation: ID Referring Provider: AIMEE PEREZ MD Exam/Review of Systems Vital Signs Vitals Vital Signs Date Time Temp Pulse Resp B/P Pulse Ox O2 Delivery O2 Flow Rate FiO2 04/11/16 08:22 98.5 74 16 131/58 97 Intake and Output 04/10/16 04/10/16 04/11/16 15:00 23:00 07:00 Intake Total 100 ml 1380 ml 1220 ml Output Total 1170 ml 540 ml Balance 100 ml 210 ml 680 ml Results Result Diagram: 04/10/16 0428 04/11/16 0442 Results 24 hrs Laboratory Tests Test 04/11/16 04:42 Anion Gap 13 Blood Urea Nitrogen 4 L Calcium Level 8.5 Carbon Dioxide Level 31 Chloride Level 102 Creatinine 0.56 Glucose Level 107 Potassium Level 3.2 L Sodium Level 143 Medications Medications Current Medications Dextrose/Sodium Chloride (D5-1/2ns) 1,000 ml @ 60 mls/hr [id number] IV Last administered on 04/10/16 23:39; Admin Dose 60 MLS/HR; Start 04/05/16 at 17:36 Ondansetron HCl (Zofran Inj) 4 mg Q6H PRN IV NAUSEA AND/OR VOMITING; Start 04/05 at 18:00 Acetaminophen (Tylenol Tab) 650 mg Q6H PRN PO PAIN LEVEL 1-3 OR FEVER Last administered on 04/11/16 10:15; Admin Dose 650 MG; Start 04/05/16 at 18:00 Magnesium Hydroxide (Milk Of Mag) 30 ml DAILY PRN PO CONSTIPATION; Start at 18:00 Zolpidem Tartrate (Ambien) 5 mg QHS PRN PO SLEEP Last administered on 04/08/16 01:33; Admin Dose 5 MG; Start 04/05/16 at 18:00 Pantoprazole 40 mg 40 mg DAILY@06 IV Last administered on 04/11/16 05:11; Admin Dose 40 MG; Start 04/06/16 at 06:00 Metronidazole (Flagyl 500 Mg (Pmx)) 100 ml @ 100 mls/hr Q8 IVPB Last administered on 04/11/16 15:30; Admin Dose 100 MLS/HR; Start 04/05/16 at 22:00 Morphine Sulfate 3 mg 3 mg Q3H PRN IV PAIN Last administered on 04/08/16 12:49 ; Admin Dose 3 MG; Start 04/05/16 at 21:00 Ceftriaxone Sodium (Rocephin) 50 ml @ 100 mls/hr Q24H IVPB Last administered on 04/10/16 21:07; Admin Dose 100 MLS/HR; Start 04/09/16 at 20:00 Phenol (Chloraseptic Throat [place]) 2 spray Q2H PRN MT SORE THROAT; Start at 14:30 AVIVA PACKER NP Apr 11, 2016 16:29
--- NOTE | 2016-04-11 17:40 | CONS ---
Date/Time of Note Date/Time of Note DATE: 04/11/16 TIME: 17:39 Assessment/Plan Assessment/Plan Additional Assessment/Plan IMPRESSION: 1. Pelvic abscess, status post drainage done by IR. 2. History of diverticulitis. 3. High CEA. 4. Renal mass suspicious for malignancy. 5. Adrenal mass, which is benign. 6. Obesity. 7. Tremor. Plan continue antibiotics will repeat CT with rectal contrast after few days, Consultation Date/Type/Reason Admit Date/Time Apr 05, 2016 at 14:49 Initial Consult Date 04/09/16 Type of Consultation: ID Referring Provider: AIMEE PEREZ MD 24 HR Interval Summary Constitutional: improved Exam/Review of Systems Vital Signs Vitals Vital Signs Date Time Temp Pulse Resp B/P Pulse Ox O2 Delivery O2 Flow Rate FiO2 04/11/16 08:22 98.5 74 16 131/58 97 Intake and Output 04/10/16 04/10/16 04/11/16 15:00 23:00 07:00 Intake Total 100 ml 1380 ml 1220 ml Output Total 1170 ml 540 ml Balance 100 ml 210 ml 680 ml Exam Constitutional: alert, oriented, well developed Psych: nl mood/affect, no complaints Head: atraumatic, normocephalic Eyes: EOMI, PERRL, nl conjunctiva, nl lids, nl sclera ENMT: nl external ears & nose, nl lips & teeth, nl nasal mucosa & septum Neck: non-tender, supple Respiratory: clear to auscultation, normal air movement Cardiovascular: nl pulses, regular rate and rhythm Gastrointestinal: nl liver, spleen, non-tender, soft Musculoskeletal: nl extremities to inspection, nl gait and stance Extremities: normal pulses Neurological: CREW MEMBER II-XII intact, nl mental status, nl speech, nl strength Skin: nl turgor, No rash or lesions Lymph: nl lymph nodes Results Result Diagram: 04/10/16 0428 04/11/16 0442 Results 24 hrs Laboratory Tests Test 04/11/16 04:42 Anion Gap 13 Blood Urea Nitrogen 4 L Calcium Level 8.5 Carbon Dioxide Level 31 Chloride Level 102 Creatinine 0.56 Glucose Level 107 Potassium Level 3.2 L Sodium Level 143 Medications Medications Current Medications Dextrose/Sodium Chloride (D5-1/2ns) 1,000 ml @ 60 mls/hr [id number] IV Last administered on 04/10/16 23:39; Admin Dose 60 MLS/HR; Start 04/05/16 at 17:36 Ondansetron HCl (Zofran Inj) 4 mg Q6H PRN IV NAUSEA AND/OR VOMITING; Start 04/05 at 18:00 Acetaminophen (Tylenol Tab) 650 mg Q6H PRN PO PAIN LEVEL 1-3 OR FEVER Last administered on 04/11/16 10:15; Admin Dose 650 MG; Start 04/05/16 at 18:00 Magnesium Hydroxide (Milk Of Mag) 30 ml DAILY PRN PO CONSTIPATION; Start at 18:00 Zolpidem Tartrate 5 mg 5 mg QHS PRN PO SLEEP Last administered on 04/08/16 01: 33; Admin Dose 5 MG; Start 04/05/16 at 18:00 Metronidazole (Flagyl 500 Mg (Pmx)) 100 ml @ 100 mls/hr Q8 IVPB Last administered on 04/11/16 15:30; Admin Dose 100 MLS/HR; Start 04/05/16 at 22:00 Morphine Sulfate 3 mg 3 mg Q3H PRN IV PAIN Last administered on 04/08/16 12:49 ; Admin Dose 3 MG; Start 04/05/16 at 21:00 Ceftriaxone Sodium (Rocephin) 50 ml @ 100 mls/hr Q24H IVPB Last administered on 04/10/16 21:07; Admin Dose 100 MLS/HR; Start 04/09/16 at 20:00 Phenol (Chloraseptic Throat [place]) 2 spray Q2H PRN MT SORE THROAT; Start at 14:30 Pantoprazole (Protonix Tab) 40 mg DAILY@06 PO ; Start 04/11/16 at 17:30 MARISELA HELM MD Apr 11, 2016 17:40
[2016-04-11] MEDS: DEXTROSE 5%-0.45% NACL 1,000 ML IV SCH (17:46)
[2016-04-11] MEDS: PANTOPRAZOLE (EC) 40 MG TAB PO SCH (17:47)
--- NOTE | 2016-04-11 18:16 | PN ---
Date/Time of Note Date/Time of Note DATE: 04/11/16 TIME: 18:15 Assessment/Plan VTE Prophylaxis VTE Prophylaxis Intervention: other Lines/Catheters IV [facility]ter [facility] (from [facility]): Peripheral IV Urinary Cath still in place: No Assessment/Plan Chief Complaint/Hosp Course IMPRESSION: 1. The patient has ABD mass. 2. Possible diverticulitis. 3. Rule out abscess. 4. History of diverticulitis. 5 S/P CT GUIDED DRAINAGE 6 adrenal mass observe for now 7 pelvic and renal mass 8 elevated cea 9 hypokalemia PLAN ANTIBIOTIC PER SURGERY urology and oncology dr agarwal /id f/u Problems: Subjective 24 Hr Interval Summary Cardiovascular: no complaints Gastrointestinal: no complaints, No diarrhea, No vomiting Genitourinary: no complaints Exam/Review of Systems Vital Signs Vitals Vital Signs Date Time Temp Pulse Resp B/P Pulse Ox O2 Delivery O2 Flow Rate FiO2 04/11/16 08:22 98.5 74 16 131/58 97 Intake and Output 04/10/16 04/10/16 04/11/16 15:00 23:00 07:00 Intake Total 100 ml 1380 ml 1220 ml Output Total 1170 ml 540 ml Balance 100 ml 210 ml 680 ml Exam Respiratory: clear to auscultation Cardiovascular: regular rate and rhythm Gastrointestinal: bowel sounds (+), soft Musculoskeletal: nl extremities to inspection Results Result Diagram: 04/10/16 0428 04/11/16 0442 Results 24 hrs Laboratory Tests Test 04/11/16 04:42 Anion Gap 13 Blood Urea Nitrogen 4 L Calcium Level 8.5 Carbon Dioxide Level 31 Chloride Level 102 Creatinine 0.56 Glucose Level 107 Potassium Level 3.2 L Sodium Level 143 Medications Medications Current Medications Dextrose/Sodium Chloride (D5-1/2ns) 1,000 ml @ 60 mls/hr [id number] IV Last administered on 04/11/16 17:46; Admin Dose 60 MLS/HR; Start 04/05/16 at 17:36 Ondansetron HCl (Zofran Inj) 4 mg Q6H PRN IV NAUSEA AND/OR VOMITING; Start 04/05 at 18:00 Acetaminophen (Tylenol Tab) 650 mg Q6H PRN PO PAIN LEVEL 1-3 OR FEVER Last administered on 04/11/16 10:15; Admin Dose 650 MG; Start 04/05/16 at 18:00 Magnesium Hydroxide (Milk Of Mag) 30 ml DAILY PRN PO CONSTIPATION; Start at 18:00 Zolpidem Tartrate 5 mg 5 mg QHS PRN PO SLEEP Last administered on 04/08/16 01: 33; Admin Dose 5 MG; Start 04/05/16 at 18:00 Metronidazole (Flagyl 500 Mg (Pmx)) 100 ml @ 100 mls/hr Q8 IVPB Last administered on 04/11/16 15:30; Admin Dose 100 MLS/HR; Start 04/05/16 at 22:00 Morphine Sulfate 3 mg 3 mg Q3H PRN IV PAIN Last administered on 04/08/16 12:49 ; Admin Dose 3 MG; Start 04/05/16 at 21:00 Ceftriaxone Sodium (Rocephin) 50 ml @ 100 mls/hr Q24H IVPB Last administered on 04/10/16 21:07; Admin Dose 100 MLS/HR; Start 04/09/16 at 20:00 Phenol (Chloraseptic Throat [place]) 2 spray Q2H PRN MT SORE THROAT; Start at 14:30 Pantoprazole (Protonix Tab) 40 mg DAILY@06 PO Last administered on 04/11/16 17: 47; Admin Dose 40 MG; Start 04/11/16 at 17:30 AIMEE PEREZ MD Apr 11, 2016 18:16
[2016-04-11 20:03] VITALS: BP 145/63; RESP 18
[2016-04-11] MEDS: CEFTRIAXONE 2 GM/50 ML (PMX) 50 ML IVPB SCH (22:04)
[2016-04-12] MEDS: metroNIDAZOLE 500 MG/NS (PMX) 100 ML IVPB SCH ×3 (04:33→22:15)
[2016-04-12] MEDS: PANTOPRAZOLE (EC) 40 MG TAB PO SCH (04:33)
[2016-04-12 06:20] LABS: POTASSIUM 4.6 mmol/L (3.5-5.1)
[2016-04-12 06:22] LABS: CREATININE 0.54 mg/dl (0.44-1.00)
[2016-04-12 06:23] LABS: CALCIUM 8.6 mg/dl (8.4-10.2)
[2016-04-12 07:29] VITALS: BP 147/70; RESP 20
--- NOTE | 2016-04-12 17:01 | CONS ---
Date/Time of Note Date/Time of Note DATE: 04/12/16 TIME: 17:00 Assessment/Plan Assessment/Plan Chief Complaint/Hosp Course SUBJECTIVE: No acute changes. The patient is lying comfortably in bed, c/o acid reflux, no fevers, nad MICROBIOLOGY: Abdominal drainage growing E. coli, strep and Bacteroides fragilis. Blood cultures have been negative. ANTIMICROBIALS: The patient is on: 1. Rocephin. 2. Flagyl. ALLERGIES: PENICILLIN. PHYSICAL EXAMINATION: GENERAL: This is a morbidly obese elderly woman who is in no distress. HEENT: Head atraumatic, normocephalic. Sclerae anicteric. Buccal mucosa dry. NECK: Supple. Trachea midline. CHEST: Rise symmetrical. Breath sounds clear. HEART: S1, S2. ABDOMEN: Soft. Bowel tones present. EXTREMITIES: Without cyanosis. SKIN: Without cyanosis. The patient has left-sided intra-abdominal drainage catheter. ASSESSMENT: 1. Abdominal pain with large fluid collection, status post CT-guided drainage with placement of catheter and fluid culture growing Escherichia coli, streptococcus and Bacteroides fragilis, covered with Flagyl, Rocephin. 2. Morbid obesity. 3. Systemic inflammatory response syndrome. 4. Renal mass suspicious for malignancy. 5. Anemia. PLAN: The patient remains stable, followed by multiple consultants. Cytology of the abdominal fluid revealed no malignancy. Continue antibiotics. DW staff Problems: Consultation Date/Type/Reason Admit Date/Time Apr 05, 2016 at 14:49 Initial Consult Date 04/09/16 Type of Consultation: ID Referring Provider: AIMEE PEREZ MD Exam/Review of Systems Vital Signs Vitals Vital Signs Date Time Temp Pulse Resp B/P Pulse Ox O2 Delivery O2 Flow Rate FiO2 04/12/16 07:29 97.8 70 20 147/70 96 Intake and Output 04/11/16 04/11/16 04/12/16 15:00 23:00 07:00 Intake Total 1000 ml 370 ml Output Total 760 ml 700 ml Balance 240 ml -330 ml Results Result Diagram: 04/10/16 0428 04/12/16 0531 Results 24 hrs Laboratory Tests Test 04/12/16 05:31 Anion Gap 17 H Blood Urea Nitrogen 6 L Calcium Level 8.6 Carbon Dioxide Level 26 Chloride Level 104 Creatinine 0.54 Glucose Level 93 Potassium Level 4.6 Sodium Level 142 Medications Medications Current Medications Dextrose/Sodium Chloride (D5-1/2ns) 1,000 ml @ 60 mls/hr [id number] IV Last administered on 04/11/16 17:46; Admin Dose 60 MLS/HR; Start 04/05/16 at 17:36 Ondansetron HCl (Zofran Inj) 4 mg Q6H PRN IV NAUSEA AND/OR VOMITING; Start 04/05 at 18:00 Acetaminophen (Tylenol Tab) 650 mg Q6H PRN PO PAIN LEVEL 1-3 OR FEVER Last administered on 04/11/16 23:08; Admin Dose 650 MG; Start 04/05/16 at 18:00 Magnesium Hydroxide (Milk Of Mag) 30 ml DAILY PRN PO CONSTIPATION; Start at 18:00 Zolpidem Tartrate 5 mg 5 mg QHS PRN PO SLEEP Last administered on 04/08/16 01: 33; Admin Dose 5 MG; Start 04/05/16 at 18:00 Metronidazole (Flagyl 500 Mg (Pmx)) 100 ml @ 100 mls/hr Q8 IVPB Last administered on 04/12/16 14:06; Admin Dose 100 MLS/HR; Start 04/05/16 at 22:00 Morphine Sulfate 3 mg 3 mg Q3H PRN IV PAIN Last administered on 04/08/16 12:49 ; Admin Dose 3 MG; Start 04/05/16 at 21:00 Ceftriaxone Sodium (Rocephin) 50 ml @ 100 mls/hr Q24H IVPB Last administered on 04/11/16 22:04; Admin Dose 100 MLS/HR; Start 04/09/16 at 20:00 Phenol (Chloraseptic Throat [place]) 2 spray Q2H PRN MT SORE THROAT; Start at 14:30 Pantoprazole (Protonix Tab) 40 mg DAILY@06 PO Last administered on 04/12/16 04: 33; Admin Dose 40 MG; Start 04/11/16 at 17:30 AVIVA PACKER NP Apr 12, 2016 17:01
[2016-04-12] MEDS: ACETAMINOPHEN 325 MG TAB PO PRN (17:06)
[2016-04-12] MEDS: DEXTROSE 5%-0.45% NACL 1,000 ML IV SCH (17:06)
--- NOTE | 2016-04-12 17:53 | PN ---
Date/Time of Note Date/Time of Note DATE: 04/12/16 TIME: 17:52 Assessment/Plan VTE Prophylaxis VTE Prophylaxis Intervention: other Lines/Catheters IV [facility]from [facility] Peripheral IV Urinary Cath still in place: No Assessment/Plan Chief Complaint/Hosp Course IMPRESSION: 1. The patient has ABD mass. 2. Possible diverticulitis. 3. Rule out abscess. 4. History of diverticulitis. 5 S/P CT GUIDED DRAINAGE 6 adrenal mass observe for now 7 pelvic and renal mass 8 elevated cea 9 hypokalemia PLAN ANTIBIOTIC PER SURGERY urology and oncology dr agarwal /id f/u antibiotic Problems: Subjective 24 Hr Interval Summary Gastrointestinal: pain (less) Exam/Review of Systems Vital Signs Vitals Vital Signs Date Time Temp Pulse Resp B/P Pulse Ox O2 Delivery O2 Flow Rate FiO2 04/12/16 07:29 97.8 70 20 147/70 96 Intake and Output 04/11/16 04/11/16 04/12/16 15:00 23:00 07:00 Intake Total 1000 ml 370 ml Output Total 760 ml 700 ml Balance 240 ml -330 ml Exam Neck: supple Respiratory: clear to auscultation Cardiovascular: regular rate and rhythm Gastrointestinal: soft Results Result Diagram: 04/10/16 0428 04/12/16 0531 Results 24 hrs Laboratory Tests Test 04/12/16 05:31 Anion Gap 17 H Blood Urea Nitrogen 6 L Calcium Level 8.6 Carbon Dioxide Level 26 Chloride Level 104 Creatinine 0.54 Glucose Level 93 Potassium Level 4.6 Sodium Level 142 Medications Medications Current Medications Dextrose/Sodium Chloride (D5-1/2ns) 1,000 ml @ 60 mls/hr [id number] IV Last administered on 04/12/16 17:06; Admin Dose 60 MLS/HR; Start 04/05/16 at 17:36 Ondansetron HCl (Zofran Inj) 4 mg Q6H PRN IV NAUSEA AND/OR VOMITING; Start 04/05 at 18:00 Acetaminophen (Tylenol Tab) 650 mg Q6H PRN PO PAIN LEVEL 1-3 OR FEVER Last administered on 04/12/16 17:06; Admin Dose 650 MG; Start 04/05/16 at 18:00 Magnesium Hydroxide (Milk Of Mag) 30 ml DAILY PRN PO CONSTIPATION; Start at 18:00 Zolpidem Tartrate 5 mg 5 mg QHS PRN PO SLEEP Last administered on 04/08/16 01: 33; Admin Dose 5 MG; Start 04/05/16 at 18:00 Metronidazole (Flagyl 500 Mg (Pmx)) 100 ml @ 100 mls/hr Q8 IVPB Last administered on 04/12/16 14:06; Admin Dose 100 MLS/HR; Start 04/05/16 at 22:00 Morphine Sulfate 3 mg 3 mg Q3H PRN IV PAIN Last administered on 04/08/16 12:49 ; Admin Dose 3 MG; Start 04/05/16 at 21:00 Ceftriaxone Sodium (Rocephin) 50 ml @ 100 mls/hr Q24H IVPB Last administered on 04/11/16 22:04; Admin Dose 100 MLS/HR; Start 04/09/16 at 20:00 Phenol (Chloraseptic Throat [place]) 2 spray Q2H PRN MT SORE THROAT; Start at 14:30 Pantoprazole (Protonix Tab) 40 mg DAILY@06 PO Last administered on 04/12/16 04: 33; Admin Dose 40 MG; Start 04/11/16 at 17:30 AIMEE PEREZ MD Apr 12, 2016 17:53
--- NOTE | 2016-04-12 19:22 | CONS ---
Date/Time of Note Date/Time of Note DATE: 04/12/16 TIME: 19:22 Assessment/Plan Assessment/Plan Additional Assessment/Plan Assessment/Plan Additional Assessment/Plan IMPRESSION: 1. Pelvic abscess, status post drainage done by IR. 2. History of diverticulitis. 3. High CEA. 4. Renal mass suspicious for malignancy. 5. Adrenal mass, which is benign. 6. Obesity. 7. Tremor. Plan continue antibiotics will repeat CT with rectal contrast after few days, Consultation Date/Type/Reason Admit Date/Time Apr 05, 2016 at 14:49 Initial Consult Date 04/09/16 Type of Consultation: ID Referring Provider: AIMEE PEREZ MD 24 HR Interval Summary Constitutional: improved Exam/Review of Systems Vital Signs Vitals Vital Signs Date Time Temp Pulse Resp B/P Pulse Ox O2 Delivery O2 Flow Rate FiO2 04/12/16 07:29 97.8 70 20 147/70 96 Intake and Output 04/11/16 04/11/16 04/12/16 15:00 23:00 07:00 Intake Total 1000 ml 370 ml Output Total 760 ml 700 ml Balance 240 ml -330 ml Exam Constitutional: alert, oriented, well developed Psych: nl mood/affect, no complaints Head: atraumatic, normocephalic Eyes: EOMI, PERRL, nl conjunctiva, nl lids, nl sclera ENMT: nl external ears & nose, nl lips & teeth, nl nasal mucosa & septum Neck: non-tender, supple Respiratory: clear to auscultation, normal air movement Cardiovascular: nl pulses, regular rate and rhythm Gastrointestinal: nl liver, spleen, non-tender, soft Musculoskeletal: nl extremities to inspection, nl gait and stance Extremities: normal pulses Neurological: 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 MACHINE OPERATOR II-XII 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, nl mental status, nl speech, nl strength Skin: nl turgor, No rash or lesions Lymph: nl lymph nodes Results Result Diagram: 04/10/16 0428 04/12/16 0531 Results 24 hrs Laboratory Tests Test 04/12/16 05:31 Anion Gap 17 H Blood Urea Nitrogen 6 L Calcium Level 8.6 Carbon Dioxide Level 26 Chloride Level 104 Creatinine 0.54 Glucose Level 93 Potassium Level 4.6 Sodium Level 142 Medications Medications Current Medications Dextrose/Sodium Chloride (D5-1/2ns) 1,000 ml @ 60 mls/hr [id number] IV Last administered on 04/12/16 17:06; Admin Dose 60 MLS/HR; Start 04/05/16 at 17:36 Ondansetron HCl (Zofran Inj) 4 mg Q6H PRN IV NAUSEA AND/OR VOMITING; Start 04/05 at 18:00 Acetaminophen (Tylenol Tab) 650 mg Q6H PRN PO PAIN LEVEL 1-3 OR FEVER Last administered on 04/12/16 17:06; Admin Dose 650 MG; Start 04/05/16 at 18:00 Magnesium Hydroxide (Milk Of Mag) 30 ml DAILY PRN PO CONSTIPATION; Start at 18:00 Zolpidem Tartrate 5 mg 5 mg QHS PRN PO SLEEP Last administered on 04/08/16 01: 33; Admin Dose 5 MG; Start 04/05/16 at 18:00 Metronidazole (Flagyl 500 Mg (Pmx)) 100 ml @ 100 mls/hr Q8 IVPB Last administered on 04/12/16 14:06; Admin Dose 100 MLS/HR; Start 04/05/16 at 22:00 Morphine Sulfate 3 mg 3 mg Q3H PRN IV PAIN Last administered on 04/08/16 12:49 ; Admin Dose 3 MG; Start 04/05/16 at 21:00 Ceftriaxone Sodium (Rocephin) 50 ml @ 100 mls/hr Q24H IVPB Last administered on 04/11/16 22:04; Admin Dose 100 MLS/HR; Start 04/09/16 at 20:00 Phenol (Chloraseptic Throat [place]) 2 spray Q2H PRN MT SORE THROAT; Start at 14:30 Pantoprazole (Protonix Tab) 40 mg DAILY@06 PO Last administered on 04/12/16 04: 33; Admin Dose 40 MG; Start 04/11/16 at 17:30 MARISELA HELM MD Apr 12, 2016 19:22
[2016-04-12 20:20] VITALS: BP 132/84; RESP 18
--- NOTE | 2016-04-12 20:22 | CONS ---
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 Pt. lacks any clinical stigmata of hormone producing tumor. She has had brief hypokalemia but did not present this way. She has not been hypertensive. Although obese, she is not diabetic. Random cortisol at night was in a moderate range but pt. is acutely ill with an abscess in her belly. Await 24 hour urinary free cortisol, plasma aldosterone concentration to plasma renin activity, and have also ordered a plasma metanephrine. However , suspect all of this will be negative. The only other concern would be benignity vs. malignancy. Already stated in other notes that this is likely benign and I agree. However, the only way to be sure is with serial CT scanning to assess for growth. If the gland grows to be greater than 4 cm, it should be excised regardless of benign appearance for fear of occult malignancy. However, given the patient's current clinical situation with her diverticular abscess, subsequent concern of her likely R renal carcinoma, and the potential interpretations of her elevated CEA level, the future evaluations of her L adrenal mass seem like a low priority at this time. Should all of these other issues be cleared, then I would follow patient w/ serial CT scans to monitor for growth. Thank you for this consult. 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 pain. This had been getting worked up and was though to be UTI but did not respond to treatment. Last week pt. presented to [facility] where she had CT scan and was found to have large pelvic fluid collection c/w abscess. Other findings on CT as well including R renal mass concerning for RCC and L adrenal adenoma. CT repeated w/ contrast and drain placed in fluid collection. Cytology (-) for malignancy and cultures (+) for coliforms and this was diagnosed as perforated diverticular abscess. Pt. has remained on IV antibiotics with drainage. It has been determined renal mass will come out in the future after d/c home. She has been found to have elevated CEA and determined to require colonoscopy but again this will be after she recovers from her diverticulitis. Endo consulted to eval adrenal mass. Constitutional: improved, no complaints Eyes: no complaints ENT: no complaints Respiratory: no complaints Cardiovascular: no complaints Gastrointestinal: pain Genitourinary: no complaints Musculoskeletal: no complaints Neurologic: no complaints Psychological: nl mood/affect, no complaints Past Medical History Medical History: diverticulitis, peptic ulcer disease, other (asthma, tremor, hemorrhoids) Past Surgical History Past Surgical Hx: other (TAN-BSO, bladder lift) Family History Significant Family History: cancer (uterine in [place] and breast in cousins), hypertension (mother) Social History b. 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 Alcohol Use: sober (but only social use in the past) Smoking Status: Former smoker (adolesence only) Drug Use: none Exam/Review of Systems Vital Signs Vitals VS - Last 72 Hours, by Label Date Time Temp Pulse Resp B/P Pulse Ox O2 Delivery O2 Flow Rate FiO2 04/12/16 07:29 97.8 70 20 147/70 96 04/11/16 20:03 98.9 77 18 145/63 96 04/11/16 08:22 98.5 74 16 131/58 97 04/10/16 08:50 98.4 67 16 125/56 99 Vital Signs Date Time Temp Pulse Resp B/P Pulse Ox O2 Delivery O2 Flow Rate FiO2 04/12/16 07:29 97.8 70 20 147/70 96 Intake and Output 04/11/16 04/11/16 04/12/16 15:00 23:00 07:00 Intake Total 1000 ml 370 ml Output Total 760 ml 700 ml Balance 240 ml -330 ml Exam Constitutional: alert, obese, oriented Psych: nl mood/affect, no complaints Eyes: EOMI, PERRL, nl conjunctiva, nl lids, nl sclera ENMT: mucosa pink and moist, nl external ears & nose Neck: non-tender, supple, No bruits, No masses, No thyromegaly Respiratory: clear to auscultation, normal air movement Cardiovascular: nl pulses, regular rate and rhythm, No edema, No murmurs/extra sounds, No rub Gastrointestinal: bowel sounds, nl liver, spleen, soft, tender (diffusely but worst in LLQ), No mass, No non-tender, No rebound or guarding Musculoskeletal: nl extremities to inspection Extremities: normal pulses, No clubbing, No cyanosis, No edema Neurological: CREATIVE WRITING PROFESSOR II-XII intact, nl mental status, nl speech, nl strength Results Result Diagram: 04/10/16 0428 04/12/16 0531 Results 24 hrs Laboratory Tests Test 04/12/16 05:31 Anion Gap 17 H Blood Urea Nitrogen 6 L Calcium Level 8.6 Carbon Dioxide Level 26 Chloride Level 104 Creatinine 0.54 Glucose Level 93 Potassium Level 4.6 Sodium Level 142 Medications Medications Current Medications Dextrose/Sodium Chloride (D5-1/2ns) 1,000 ml @ 60 mls/hr [id number] IV Last administered on 04/12/16 17:06; Admin Dose 60 MLS/HR; Start 04/05/16 at 17:36 Ondansetron HCl (Zofran Inj) 4 mg Q6H PRN IV NAUSEA AND/OR VOMITING; Start 04/05 at 18:00 Acetaminophen (Tylenol Tab) 650 mg Q6H PRN PO PAIN LEVEL 1-3 OR FEVER Last administered on 04/12/16 17:06; Admin Dose 650 MG; Start 04/05/16 at 18:00 Magnesium Hydroxide (Milk Of Mag) 30 ml DAILY PRN PO CONSTIPATION; Start at 18:00 Zolpidem Tartrate 5 mg 5 mg QHS PRN PO SLEEP Last administered on 04/08/16 01: 33; Admin Dose 5 MG; Start 04/05/16 at 18:00 Metronidazole (Flagyl 500 Mg (Pmx)) 100 ml @ 100 mls/hr Q8 IVPB Last administered on 04/12/16 14:06; Admin Dose 100 MLS/HR; Start 04/05/16 at 22:00 Morphine Sulfate 3 mg 3 mg Q3H PRN IV PAIN Last administered on 04/08/16 12:49 ; Admin Dose 3 MG; Start 04/05/16 at 21:00 Ceftriaxone Sodium (Rocephin) 50 ml @ 100 mls/hr Q24H IVPB Last administered on 04/11/16 22:04; Admin Dose 100 MLS/HR; Start 04/09/16 at 20:00 Phenol (Chloraseptic Throat [place]) 2 spray Q2H PRN MT SORE THROAT; Start at 14:30 Pantoprazole (Protonix Tab) 40 mg DAILY@06 PO Last administered on 04/12/16 04: 33; Admin Dose 40 MG; Start 04/11/16 at 17:30 MANOHAR YADAV MD Apr 12, 2016 20:22
[2016-04-12] MEDS: CEFTRIAXONE 2 GM/50 ML (PMX) 50 ML IVPB SCH (21:17)
[2016-04-13] MEDS: PANTOPRAZOLE (EC) 40 MG TAB PO SCH (06:32)
[2016-04-13] MEDS: metroNIDAZOLE 500 MG/NS (PMX) 100 ML IVPB SCH ×3 (06:33→21:43)
[2016-04-13 08:31] VITALS: BP 134/72; RESP 16
[2016-04-13] MEDS: DEXTROSE 5%-0.45% NACL 1,000 ML IV SCH ×2 (08:56→13:52)
[2016-04-13] MEDS: ACETAMINOPHEN 325 MG TAB PO PRN (13:05)
--- NOTE | 2016-04-13 13:23 | PN ---
DATE: 04/13/2016 SUBJECTIVE: No acute changes overnight. The patient is alert, lying comfortably in bed. Patient h ad an episode of vomiting this morning, no diarrhea, no dysuria. ANTIMICROBIALS: She is on: 1. Rocephin. 2. Flagyl. PHYSICAL EXAMINATION: GENERAL: This is an obese, well-developed, elderly woman who is alert, in no distress. HEENT: Head atraumatic, normocephalic. Sclerae anicteric. Buccal mucosa pink. NECK: Supple. CHEST: Rise symmetrical. Breath sounds clear. HEART: S1, S2. ABDOMEN: Soft. Bowel tones present. EXTREMITIES: Without cyanosis. ASSESSMENT: 1. Status post pelvic abscess drainage. 2. Morbid obesity. 3. Renal mass suspicious for malignancy. 4. Anemia. PLAN: The patient remains stable. She is being followed by multiple consultants. She is on approp riate antimicrobials which we are going to continue. Dictated By: AVIVA PACKER INSPECTING MACHINE ADJUSTER for ALIYA KEVIN/DRE Conf#: [id number] DID#: [id number]
--- NOTE | 2016-04-13 15:24 | CONS ---
Date/Time of Note Date/Time of Note DATE: 04/13/16 TIME: 15:20 Assessment/Plan Assessment/Plan Chief Complaint/Hosp Course 60 yo female with 1.2 6. 2.6 x 2.3 x 1.8 cm mass measuring 80 HU extending laterally at the junction of the mid and superior pole of the right kidney suspicious for neoplasm -This is highly suspicious for a primary kidney cancer -This will need to be removed by urology by either partial or complete nephrectomy. appreciate Dr. Noland's recommendations -will place case management consult for patient to be seen at [facility] as an out patient 2. L Adrenal Adenoma -I have reviewed the addendum which now states the adenoma has a Hounsfield unit of 51 which is more concerning for occult malignancy. -appreciate endocrinology recs. f/u 24 hour urinary free cortisol, plasma aldosterone concentration to plasma renin activity,and plasma metanephrine. -agree that if > 4cm should excise but for now this can be followed with serial CT scans if above labs are negative 3. Abdominal Fluid collection, s/p CT guided drainage. cytology negative for malignancy -will f/u cultures -continue IV antibiotics Approximately 40 min were spent at patient's bedside and in coordination of her care Problems: Consultation Date/Type/Reason Admit Date/Time Apr 05, 2016 at 14:49 Initial Consult Date 04/09/16 Type of Consultation: Oncology Reason for Consultation renal mass Referring Provider: AIMEE PEREZ MD 24 HR Interval Summary Free Text/Dictation continues on IV antibiotics Exam/Review of Systems Vital Signs Vitals Vital Signs Date Time Temp Pulse Resp B/P Pulse Ox O2 Delivery O2 Flow Rate FiO2 04/13/16 08:31 97.7 71 16 134/72 95 Intake and Output 04/12/16 04/12/16 04/13/16 15:00 23:00 07:00 Intake Total 100 ml 2350 ml 860 ml Output Total 1340 ml 650 ml Balance 100 ml 1010 ml 210 ml Exam Constitutional: alert Psych: nl mood/affect, no complaints Head: normocephalic Eyes: nl conjunctiva ENMT: nl external ears & nose Neck: non-tender, supple Respiratory: clear to auscultation, normal air movement Cardiovascular: regular rate and rhythm Gastrointestinal: other (drain in place) Musculoskeletal: nl extremities to inspection, nl gait and stance Extremities: normal pulses Results Result Diagram: 04/10/16 0428 04/12/16 0531 Medications Medications Current Medications Dextrose/Sodium Chloride (D5-1/2ns) 1,000 ml @ 60 mls/hr [id number] IV Last administered on 04/13/16 13:52; Admin Dose 60 MLS/HR; Start 04/05/16 at 17:36 Ondansetron HCl (Zofran Inj) 4 mg Q6H PRN IV NAUSEA AND/OR VOMITING Last administered on 04/13/16 04:18; Admin Dose 4 MG; Start 04/05/16 at 18:00 Acetaminophen (Tylenol Tab) 650 mg Q6H PRN PO PAIN LEVEL 1-3 OR FEVER Last administered on 04/13/16 13:05; Admin Dose 650 MG; Start 04/05/16 at 18:00 Magnesium Hydroxide (Milk Of Mag) 30 ml DAILY PRN PO CONSTIPATION; Start at 18:00 Zolpidem Tartrate 5 mg 5 mg QHS PRN PO SLEEP Last administered on 04/08/16 01: 33; Admin Dose 5 MG; Start 04/05/16 at 18:00 Metronidazole (Flagyl 500 Mg (Pmx)) 100 ml @ 100 mls/hr Q8 IVPB Last administered on 04/13/16 13:51; Admin Dose 100 MLS/HR; Start 04/05/16 at 22:00 Morphine Sulfate 3 mg 3 mg Q3H PRN IV PAIN Last administered on 04/08/16 12:49 ; Admin Dose 3 MG; Start 04/05/16 at 21:00 Ceftriaxone Sodium (Rocephin) 50 ml @ 100 mls/hr Q24H IVPB Last administered on 04/12/16 21:17; Admin Dose 100 MLS/HR; Start 04/09/16 at 20:00 Phenol (Chloraseptic Throat [place]) 2 spray Q2H PRN MT SORE THROAT; Start at 14:30 Pantoprazole (Protonix Tab) 40 mg DAILY@06 PO Last administered on 04/13/16 06 :32; Admin Dose 40 MG; Start 04/11/16 at 17:30 JENNI PARKER M.D. Apr 13, 2016 15:24
--- NOTE | 2016-04-13 15:52 | CONS ---
Date/Time of Note Date/Time of Note DATE: 04/13/16 TIME: 15:51 Assessment/Plan Assessment/Plan Additional Assessment/Plan Assessment/Plan Additional Assessment/Plan IMPRESSION: 1. Pelvic abscess, status post drainage done by IR.still significant drainage 2. History of diverticulitis. 3. High CEA. 4. Renal mass suspicious for malignancy. 5. Adrenal mass, which is benign. 6. Obesity. 7. Tremor. Plan continue antibiotics will repeat CT with rectal contrast after few days, Consultation Date/Type/Reason Admit Date/Time Apr 05, 2016 at 14:49 Initial Consult Date 04/09/16 Type of Consultation: Oncology Referring Provider: AIMEE PEREZ MD 24 HR Interval Summary Constitutional: improved Exam/Review of Systems Vital Signs Vitals Vital Signs Date Time Temp Pulse Resp B/P Pulse Ox O2 Delivery O2 Flow Rate FiO2 04/13/16 08:31 97.7 71 16 134/72 95 Intake and Output 04/12/16 04/12/16 04/13/16 15:00 23:00 07:00 Intake Total 100 ml 2350 ml 860 ml Output Total 1340 ml 650 ml Balance 100 ml 1010 ml 210 ml Exam Constitutional: alert, oriented, well developed Psych: nl mood/affect, no complaints Head: atraumatic, normocephalic Eyes: EOMI, PERRL, nl conjunctiva, nl lids, nl sclera ENMT: nl external ears & nose, nl lips & teeth, nl nasal mucosa & septum Neck: non-tender, supple Respiratory: clear to auscultation, normal air movement Cardiovascular: nl pulses, regular rate and rhythm Gastrointestinal: nl liver, spleen, non-tender, soft Musculoskeletal: nl extremities to inspection, nl gait and stance Extremities: normal pulses Neurological: MOSAIC TILER II-XII intact, nl mental status, nl speech, nl strength Skin: nl turgor, No rash or lesions Lymph: nl lymph nodes Results Result Diagram: 04/10/16 0428 04/12/16 0531 Medications Medications Current Medications Dextrose/Sodium Chloride (D5-1/2ns) 1,000 ml @ 60 mls/hr [id number] IV Last administered on 04/13/16t 13:52; Admin Dose 60 MLS/HR; Start 04/05/16 at 17:36 Ondansetron HCl (Zofran Inj) 4 mg Q6H PRN IV NAUSEA AND/OR VOMITING Last administered on 04/13/16 04:18; Admin Dose 4 MG; Start 04/05/16 at 18:00 Acetaminophen (Tylenol Tab) 650 mg Q6H PRN PO PAIN LEVEL 1-3 OR FEVER Last administered on 04/13/16 13:05; Admin Dose 650 MG; Start 04/05/16 at 18:00 Magnesium Hydroxide (Milk Of Mag) 30 ml DAILY PRN PO CONSTIPATION; Start at 18:00 Zolpidem Tartrate 5 mg 5 mg QHS PRN PO SLEEP Last administered on 04/08/16 01: 33; Admin Dose 5 MG; Start 04/05/16 at 18:00 Metronidazole (Flagyl 500 Mg (Pmx)) 100 ml @ 100 mls/hr Q8 IVPB Last administered on 04/13/16 13:51; Admin Dose 100 MLS/HR; Start 04/05/16 at 22:00 Morphine Sulfate 3 mg 3 mg Q3H PRN IV PAIN Last administered on 04/08/16 12:49 ; Admin Dose 3 MG; Start 04/05/16 at 21:00 Ceftriaxone Sodium (Rocephin) 50 ml @ 100 mls/hr Q24H IVPB Last administered on 04/12/16 21:17; Admin Dose 100 MLS/HR; Start 04/09/16 at 20:00 Phenol (Chloraseptic Throat [place]) 2 spray Q2H PRN MT SORE THROAT; Start at 14:30 Pantoprazole (Protonix Tab) 40 mg DAILY@06 PO Last administered on 04/13/16 06 :32; Admin Dose 40 MG; Start 04/11/16 at 17:30 MARISELA HELM MD Apr 13, 2016 15:52
--- NOTE | 2016-04-13 16:27 | PN ---
Date/Time of Note Date/Time of Note DATE: 04/13/16 TIME: 16:25 Assessment/Plan VTE Prophylaxis VTE Prophylaxis Intervention: other Lines/Catheters IV [facility] Type [facility] Peripheral IV Urinary Cath still in place: No Assessment/Plan Chief Complaint/Hosp Course IMPRESSION: 1. The patient has abd mass. 2. Possible diverticulitis. 3. Rule out abscess. 4. History of diverticulitis. 5 S/P CT GUIDED DRAINAGE 6 adrenal mass observe for now 7 pelvic and renal mass 8 elevated cea 9 hypokalemia PLAN ANTIBIOTIC PER SURGERY urology and oncology dr agarwal /id f/u antibiotic marti care Problems: Subjective 24 Hr Interval Summary Respiratory: no complaints Cardiovascular: no complaints Gastrointestinal: no complaints Exam/Review of Systems Vital Signs Vitals Vital Signs Date Time Temp Pulse Resp B/P Pulse Ox O2 Delivery O2 Flow Rate FiO2 04/13/16 08:31 97.7 71 16 134/72 95 Intake and Output 04/12/16 04/12/16 04/13/16 15:00 23:00 07:00 Intake Total 100 ml 2350 ml 860 ml Output Total 1340 ml 650 ml Balance 100 ml 1010 ml 210 ml Exam Neck: supple Respiratory: clear to auscultation Cardiovascular: regular rate and rhythm Gastrointestinal: bowel sounds (+), soft, tender (+) Results Result Diagram: 04/10/16 0428 04/12/16 0531 Medications Medications Current Medications Dextrose/Sodium Chloride (D5-1/2ns) 1,000 ml @ 60 mls/hr [id number] IV Last administered on 04/13/16 13:52; Admin Dose 60 MLS/HR; Start 04/05/16 at 17:36 Ondansetron HCl (Zofran Inj) 4 mg Q6H PRN IV NAUSEA AND/OR VOMITING Last administered on 04/13/16 04:18; Admin Dose 4 MG; Start 04/05/16 at 18:00 Acetaminophen (Tylenol Tab) 650 mg Q6H PRN PO PAIN LEVEL 1-3 OR FEVER Last administered on 04/13/16 13:05; Admin Dose 650 MG; Start 04/05/16 at 18:00 Magnesium Hydroxide (Milk Of Mag) 30 ml DAILY PRN PO CONSTIPATION; Start at 18:00 Zolpidem Tartrate 5 mg 5 mg QHS PRN PO SLEEP Last administered on 04/08/16 01: 33; Admin Dose 5 MG; Start 04/05/16 at 18:00 Metronidazole (Flagyl 500 Mg (Pmx)) 100 ml @ 100 mls/hr Q8 IVPB Last administered on 04/13/16 13:51; Admin Dose 100 MLS/HR; Start 04/05/16 at 22:00 Morphine Sulfate 3 mg 3 mg Q3H PRN IV PAIN Last administered on 04/08/16 12:49 ; Admin Dose 3 MG; Start 04/05/16 at 21:00 Ceftriaxone Sodium (Rocephin) 50 ml @ 100 mls/hr Q24H IVPB Last administered on 04/12/16 21:17; Admin Dose 100 MLS/HR; Start 04/09/16 at 20:00 Phenol (Chloraseptic Throat [place]) 2 spray Q2H PRN MT SORE THROAT; Start at 14:30 Pantoprazole (Protonix Tab) 40 mg DAILY@06 PO Last administered on 04/13/16 06 :32; Admin Dose 40 MG; Start 04/11/16 at 17:30 AIMEE PEREZ MD Apr 13, 2016 16:27
[2016-04-13] MEDS ORDERED: FLUCONAZOLE 150 MG TAB PO ONE (18:00)
--- NOTE | 2016-04-13 19:27 | CONS ---
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 Plasma aldosterone and plasma renin low. No evidence of Otis's or Conn's tumors. Await metanephrines. If non-hormone producing, should be followed by serial CT scans which onc has offered to do. 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, left Consultation Date/Type/Reason Admit Date/Time Apr 05, 2016 at 14:49 Initial Consult Date 04/12/16 Type of Consultation: Endocrinology Reason for Consultation Adrenal incidentaloma Referring Provider: AIMEE PEREZ MD 24 HR Interval Summary Constitutional: improved, no complaints Detailed Summary Respiratory: no complaints Cardiovascular: no complaints Gastrointestinal: pain (but less than yesterday) Genitourinary: no complaints Musculoskeletal: no complaints Neurologic: headache Exam/Review of Systems Vital Signs Vitals VS - Last 72 Hours, by Label Date Time Temp Pulse Resp B/P Pulse Ox O2 Delivery O2 Flow Rate FiO2 04/13/16 08:31 97.7 71 16 134/72 95 04/12/16 20:20 98.4 68 18 132/84 96 04/12/16 07:29 97.8 70 20 147/70 96 04/11/16 20:03 98.9 77 18 145/63 96 04/11/16 08:22 98.5 74 16 131/58 97 Vital Signs Date Time Temp Pulse Resp B/P Pulse Ox O2 Delivery O2 Flow Rate FiO2 04/13/16 08:31 97.7 71 16 134/72 95 Intake and Output 04/12/16 04/12/16 04/13/16 15:00 23:00 07:00 Intake Total 100 ml 2350 ml 860 ml Output Total 1340 ml 650 ml Balance 100 ml 1010 ml 210 ml Exam Constitutional: alert, obese, oriented Psych: nl mood/affect, no complaints Respiratory: clear to auscultation, normal air movement Cardiovascular: nl pulses, regular rate and rhythm, No edema, No murmurs/extra sounds, No rub Gastrointestinal: bowel sounds, nl liver, spleen, soft, tender (but less than yesterday), No mass, No rebound or guarding Musculoskeletal: nl extremities to inspection Extremities: normal pulses, No clubbing, No cyanosis, No edema Neurological: TRUMPET TEACHER II-XII intact, nl mental status, nl speech, nl strength Results Result Diagram: 04/10/16 0428 04/12/16 0531 Medications Medications Current Medications Dextrose/Sodium Chloride (D5-1/2ns) 1,000 ml @ 60 mls/hr [id number] IV Last administered on 04/13/16 13:52; Admin Dose 60 MLS/HR; Start 04/05/16 at 17:36 Ondansetron HCl (Zofran Inj) 4 mg Q6H PRN IV NAUSEA AND/OR VOMITING Last administered on 04/13/16 04:18; Admin Dose 4 MG; Start 04/05/16 at 18:00 Acetaminophen (Tylenol Tab) 650 mg Q6H PRN PO PAIN LEVEL 1-3 OR FEVER Last administered on 04/13/16 13:05; Admin Dose 650 MG; Start 04/05/16 at 18:00 Magnesium Hydroxide (Milk Of Mag) 30 ml DAILY PRN PO CONSTIPATION; Start at 18:00 Zolpidem Tartrate 5 mg 5 mg QHS PRN PO SLEEP Last administered on 04/08/16 01: 33; Admin Dose 5 MG; Start 04/05/16 at 18:00 Metronidazole (Flagyl 500 Mg (Pmx)) 100 ml @ 100 mls/hr Q8 IVPB Last administered on 04/13/16 13:51; Admin Dose 100 MLS/HR; Start 04/05/16 at 22:00 Morphine Sulfate 3 mg 3 mg Q3H PRN IV PAIN Last administered on 04/08/16 12:49 ; Admin Dose 3 MG; Start 04/05/16 at 21:00 Ceftriaxone Sodium (Rocephin) 50 ml @ 100 mls/hr Q24H IVPB Last administered on 04/12/16 21:17; Admin Dose 100 MLS/HR; Start 04/09/16 at 20:00 Phenol (Chloraseptic Throat [place]) 2 spray Q2H PRN MT SORE THROAT; Start at 14:30 Pantoprazole (Protonix Tab) 40 mg DAILY@06 PO Last administered on 04/13/16 06 :32; Admin Dose 40 MG; Start 04/11/16 at 17:30 Miconazole (Monistat-3) 1 supp HS VAG ; Start 04/13/16 at 21:00; Stop 04/15/16 at 21:01 MANOHAR YADAV MD Apr 13, 2016 19:27
[2016-04-13] MEDS: CEFTRIAXONE 2 GM/50 ML (PMX) 50 ML IVPB SCH (19:53)
[2016-04-13 20:31] VITALS: BP 143/59; RESP 18
[2016-04-13] MEDS: MICONAZOLE 200 MG VAG SUPP VAG SCH (21:11)
[2016-04-14] MEDS: DEXTROSE 5%-0.45% NACL 1,000 ML IV SCH ×3 (01:36→17:09)
[2016-04-14] MEDS: ZOLPIDEM 5 MG TAB PO PRN (01:40)
[2016-04-14] MEDS: PANTOPRAZOLE (EC) 40 MG TAB PO SCH (05:48)
[2016-04-14] MEDS: metroNIDAZOLE 500 MG/NS (PMX) 100 ML IVPB SCH ×3 (05:48→22:42)
[2016-04-14 07:50] VITALS: BP 130/63; RESP 18
[2016-04-14] MEDS ORDERED: ALBUTEROL 0.5% (NEB) 2.5 MG/0.5 ML AMP HHN PRN (09:30)
[2016-04-14] MEDS ORDERED: MONTELUKAST 10 MG TAB PO PRN (09:30)
--- NOTE | 2016-04-14 10:44 | CONS ---
Date/Time of Note Date/Time of Note DATE: 04/14/16 TIME: 10:44 Assessment/Plan Assessment/Plan Chief Complaint/Hosp Course ID PROGRESS NOTE TOTAL ABX DAY # Ceftriaxone + FLagyl 24H INTERVAL SUMMARY * No new issues, VSS, NAD, no fevers PHYSICAL EXAMINATION: GENERAL: VSS, NAD HEENT: Unremarkable NECK: Trach midline CHEST: Rise symmetrical - without dyspnea on observation HEART: RRR ABDOMEN: Soft, EXTREMITIES: Warm, ID ASSESSMENT: 60 yo F w/PMHx 1. Status post pelvic abscess drainage. 2. Morbid obesity. 3. Renal mass suspicious for malignancy. 4. Anemia. 5. Vaginal candidiasis ( -)MRSA Nares INVASIVES: *PIV ABX ALLERGIES: PCN CURRENT ABX: Ceftriaxone + FLagyl ID RECOMMENDATIONS: Continue ABX -- will f/u . Problems: Consultation Date/Type/Reason Admit Date/Time Apr 05, 2016 at 14:49 Initial Consult Date 04/12/16 Type of Consultation: ID Referring Provider: AIMEE PEREZ MD Exam/Review of Systems Vital Signs Vitals Vital Signs Date Time Temp Pulse Resp B/P Pulse Ox O2 Delivery O2 Flow Rate FiO2 04/14/16 07:50 98.6 76 18 130/63 97 Intake and Output 04/13/16 04/13/16 04/14/16 15:00 23:00 07:00 Intake Total 740 ml 1590 ml 560 ml Output Total 25 ml 30 ml 800 ml Balance 715 ml 1560 ml -240 ml Results Result Diagram: 04/10/16 0428 04/12/16 0531 Medications Medications Current Medications Dextrose/Sodium Chloride (D5-1/2ns) 1,000 ml @ 60 mls/hr [id number] IV Last administered on 04/13/16 13:52; Admin Dose 60 MLS/HR; Start 04/05/16 at 17:36 Ondansetron HCl (Zofran Inj) 4 mg Q6H PRN IV NAUSEA AND/OR VOMITING Last administered on 04/13/16 04:18; Admin Dose 4 MG; Start 04/05/16 at 18:00 Acetaminophen (Tylenol Tab) 650 mg Q6H PRN PO PAIN LEVEL 1-3 OR FEVER Last administered on 04/13/16 13:05; Admin Dose 650 MG; Start 04/05/16 at 18:00 Magnesium Hydroxide (Milk Of Mag) 30 ml DAILY PRN PO CONSTIPATION; Start at 18:00 Zolpidem Tartrate 5 mg 5 mg QHS PRN PO SLEEP Last administered on 04/14/16 01: 40; Admin Dose 5 MG; Start 04/05/16 at 18:00 Metronidazole (Flagyl 500 Mg (Pmx)) 100 ml @ 100 mls/hr Q8 IVPB Last administered on 04/14/16 05:48; Admin Dose 100 MLS/HR; Start 04/05/16 at 22:00 Morphine Sulfate 3 mg 3 mg Q3H PRN IV PAIN Last administered on 04/08/16 12:49 ; Admin Dose 3 MG; Start 04/05/16 at 21:00 Ceftriaxone Sodium (Rocephin) 50 ml @ 100 mls/hr Q24H IVPB Last administered on 04/13/16 19:53; Admin Dose 100 MLS/HR; Start 04/09/16 at 20:00 Phenol (Chloraseptic Throat [place]) 2 spray Q2H PRN MT SORE THROAT; Start at 14:30 Pantoprazole (Protonix Tab) 40 mg DAILY@06 PO Last administered on 04/14/16 05 :48; Admin Dose 40 MG; Start 04/11/16 at 17:30 Miconazole (Monistat-3) 1 supp HS VAG Last administered on 04/13/16 21:11; Admin Dose 1 SUPP; Start 04/13/16 at 21:00; Stop 04/15/16 at 21:01 Montelukast Sodium (Singulair) 20 mg DAILY PRN PO asthma Last administered on 09:43; Admin Dose 20 MG; Start 04/14/16 at 09:30 EUGENE SHETTY SENIOR ASIC ENGINEER Apr 14, 2016 10:44
--- NOTE | 2016-04-14 20:04 | PN ---
Date/Time of Note Date/Time of Note DATE: 04/14/16 TIME: 20:01 Assessment/Plan VTE Prophylaxis VTE Prophylaxis Intervention: other Assessment/Plan Assessment/Plan 1. The patient has abd mass. 2. Possible diverticulitis. 3. Rule out abscess. 4. History of diverticulitis. 5 S/P CT GUIDED DRAINAGE 6 adrenal mass observe for now 7 pelvic and renal mass 8 elevated cea 9 hypokalemia [id number] feels better tolerating food pain better cont plan Exam/Review of Systems Vital Signs Vitals Vital Signs Date Time Temp Pulse Resp B/P Pulse Ox O2 Delivery O2 Flow Rate FiO2 04/14/16 07:50 98.6 76 18 130/63 97 Intake and Output 04/13/16 04/13/16 04/14/16 14:59 22:59 06:59 Intake Total 740 ml 1590 ml 560 ml Output Total 25 ml 30 ml 800 ml Balance 715 ml 1560 ml -240 ml Exam Constitutional: alert, oriented Psych: no complaints Head: normocephalic Eyes: nl conjunctiva ENMT: nl external ears & nose Neck: supple Respiratory: clear to auscultation, normal air movement Cardiovascular: regular rate and rhythm Gastrointestinal: distended, soft Extremities: normal pulses Neurological: SPONSORSHIP COORDINATOR II-XII intact Results Result Diagram: 04/10/16 0428 04/12/16 0531 Medications Medications Current Medications Dextrose/Sodium Chloride (D5-1/2ns) 1,000 ml @ 60 mls/hr [id number] IV Last administered on 04/14/16 12:41; Admin Dose 60 MLS/HR; Start 04/05/16 at 17:36 Ondansetron HCl (Zofran Inj) 4 mg Q6H PRN IV NAUSEA AND/OR VOMITING Last administered on 04/13/16 04:18; Admin Dose 4 MG; Start 04/05/16 at 18:00 Acetaminophen (Tylenol Tab) 650 mg Q6H PRN PO PAIN LEVEL 1-3 OR FEVER Last administered on 04/13/16 13:05; Admin Dose 650 MG; Start 04/05/16 at 18:00 Magnesium Hydroxide (Milk Of Mag) 30 ml DAILY PRN PO CONSTIPATION; Start at 18:00 Zolpidem Tartrate 5 mg 5 mg QHS PRN PO SLEEP Last administered on 04/14/16 01: 40; Admin Dose 5 MG; Start 04/05/16 at 18:00 Metronidazole (Flagyl 500 Mg (Pmx)) 100 ml @ 100 mls/hr Q8 IVPB Last administered on 04/14/16 13:42; Admin Dose 100 MLS/HR; Start 04/05/16 at 22:00 Morphine Sulfate 3 mg 3 mg Q3H PRN IV PAIN Last administered on 04/08/16 12:49 ; Admin Dose 3 MG; Start 04/05/16 at 21:00 Ceftriaxone Sodium (Rocephin) 50 ml @ 100 mls/hr Q24H IVPB Last administered on 04/13/16 19:53; Admin Dose 100 MLS/HR; Start 04/09/16 at 20:00 Phenol (Chloraseptic Throat [place]) 2 spray Q2H PRN MT SORE THROAT; Start at 14:30 Pantoprazole (Protonix Tab) 40 mg DAILY@06 PO Last administered on 04/14/16 05 :48; Admin Dose 40 MG; Start 04/11/16 at 17:30 Miconazole (Monistat-3) 1 supp HS VAG Last administered on 04/13/16 21:11; Admin Dose 1 SUPP; Start 04/13/16 at 21:00; Stop 04/15/16 at 21:01 Montelukast Sodium (Singulair) 20 mg DAILY PRN PO asthma Last administered on 09:43; Admin Dose 20 MG; Start 04/14/16 at 09:30 TIERRA BYRD MD Apr 14, 2016 20:04
[2016-04-14 20:50] VITALS: BP 153/68; RESP 18
[2016-04-14 21:41] LABS: ALBUMIN 3.1 g/dl (3.3-4.9)
[2016-04-14] MEDS: MICONAZOLE 200 MG VAG SUPP VAG SCH (21:41)
[2016-04-14] MEDS: CEFTRIAXONE 2 GM/50 ML (PMX) 50 ML IVPB SCH (21:41)
[2016-04-14 21:42] LABS: POTASSIUM 3.2 mmol/L (3.5-5.1)
[2016-04-14 21:44] LABS: BILIRUBIN,INDIRECT 0.1 mg/dl (0-1.1); BILIRUBIN,TOTAL 0.1 mg/dl (0.2-1.3); CREATININE 0.58 mg/dl (0.44-1.00)
[2016-04-14 21:45] LABS: ALBUMIN/GLOBULIN RATIO 0.91; CALCIUM 8.3 mg/dl (8.4-10.2); TOTAL PROTEIN 6.5 g/dl (6.1-8.1)
[2016-04-14] MEDS: ACETAMINOPHEN 325 MG TAB PO PRN (21:51)
[2016-04-14 22:42] VITALS: BP 141/62; RESP 18
[2016-04-14] MEDS ORDERED: POTASSIUM CHLORIDE (SR) 20 MEQ TAB PO STA (23:26)
[2016-04-15] MEDS: metroNIDAZOLE 500 MG/NS (PMX) 100 ML IVPB SCH ×3 (06:40→21:55)
[2016-04-15] MEDS: PANTOPRAZOLE (EC) 40 MG TAB PO SCH (06:40)
[2016-04-15 08:13] VITALS: BP 128/58; RESP 17
[2016-04-15] MEDS: DEXTROSE 5%-0.45% NACL 1,000 ML IV SCH (10:08)
[2016-04-15 11:42] LABS: ALBUMIN 3.2 g/dl (3.3-4.9); POTASSIUM 3.8 mmol/L (3.5-5.1)
[2016-04-15 11:44] LABS: ALBUMIN/GLOBULIN RATIO 0.88; CREATININE 0.57 mg/dl (0.44-1.00); TOTAL PROTEIN 6.8 g/dl (6.1-8.1)
[2016-04-15 11:45] LABS: CALCIUM 8.5 mg/dl (8.4-10.2)
--- NOTE | 2016-04-15 15:18 | CONS ---
Date/Time of Note Date/Time of Note DATE: 04/15/16 TIME: 15:15 Assessment/Plan Assessment/Plan Chief Complaint/Hosp Course ID PROGRESS NOTE TOTAL ABX DAY # Ceftriaxone + FLagyl 24H INTERVAL SUMMARY * A/A/O=> responsive, doing "OK", VSS, NAD, no fevers PHYSICAL EXAMINATION: GENERAL: VSS, NAD HEENT: Unremarkable NECK: Trach midline CHEST: Rise symmetrical - without dyspnea on observation HEART: RRR ABDOMEN: Soft, EXTREMITIES: Warm, ID ASSESSMENT: 60 yo F w: 1. Status post pelvic abscess drainage. 2. Morbid obesity. 3. Renal mass suspicious for malignancy. 4. Anemia. 5. Vaginal candidiasis ( -)MRSA Nares INVASIVES: *PIV ABX ALLERGIES: PCN CURRENT ABX: Ceftriaxone + FLagyl ID RECOMMENDATIONS: Continue ABX -- ID team will f/u Saturday . . Problems: Consultation Date/Type/Reason Admit Date/Time Apr 05, 2016 at 14:49 Initial Consult Date 04/12/16 Type of Consultation: ID Referring Provider: AIMEE PEREZ MD Exam/Review of Systems Vital Signs Vitals Vital Signs Date Time Temp Pulse Resp B/P Pulse Ox O2 Delivery O2 Flow Rate FiO2 04/15/16 08:13 99.5 76 17 128/58 94 Intake and Output 04/14/16 04/14/16 04/15/16 15:00 23:00 07:00 Intake Total 460 ml 1360 ml 930 ml Output Total 40 ml 25 ml Balance 420 ml 1335 ml 930 ml Results Result Diagram: 04/15/16 1048 Results 24 hrs Laboratory Tests Test 04/14/16 21:18 04/15/16 10:48 Alanine Aminotransferase (ALT/SGPT) 36 38 Albumin 3.1 L 3.2 L Albumin/Globulin Ratio 0.91 0.88 Alkaline Phosphatase 130 H 142 H Anion Gap 14 14 Aspartate Amino Transf (AST/SGOT) 44 45 Blood Urea Nitrogen 3 L 4 L Calcium Level 8.3 L 8.5 Carbon Dioxide Level 30 31 Chloride Level 98 99 Creatinine 0.58 0.57 Direct Bilirubin 0.00 0.00 Globulin 3.40 H 3.60 H Glucose Level 103 102 Indirect Bilirubin 0.1 0.0 Potassium Level 3.2 L 3.8 Sodium Level 139 140 Total Bilirubin 0.1 L 0.0 L Total Protein 6.5 6.8 Medications Medications Current Medications Dextrose/Sodium Chloride (D5-1/2ns) 1,000 ml @ 60 mls/hr [id number] IV Last administered on 04/15/16 10:08; Admin Dose 60 MLS/HR; Start 04/05/16 at 17:36 Ondansetron HCl (Zofran Inj) 4 mg Q6H PRN IV NAUSEA AND/OR VOMITING Last administered on 04/13/16 04:18; Admin Dose 4 MG; Start 04/05/16 at 18:00 Acetaminophen (Tylenol Tab) 650 mg Q6H PRN PO PAIN LEVEL 1-3 OR FEVER Last administered on 04/14/16 21:51; Admin Dose 650 MG; Start 04/05/16 at 18:00 Magnesium Hydroxide (Milk Of Mag) 30 ml DAILY PRN PO CONSTIPATION; Start at 18:00 Zolpidem Tartrate 5 mg 5 mg QHS PRN PO SLEEP Last administered on 04/14/16 01: 40; Admin Dose 5 MG; Start 04/05/16 at 18:00 Metronidazole (Flagyl 500 Mg (Pmx)) 100 ml @ 100 mls/hr Q8 IVPB Last administered on 04/15/16 13:45; Admin Dose 100 MLS/HR; Start 04/05/16 at 22:00 Morphine Sulfate 3 mg 3 mg Q3H PRN IV PAIN Last administered on 04/08/16 12:49 ; Admin Dose 3 MG; Start 04/05/16 at 21:00 Ceftriaxone Sodium (Rocephin) 50 ml @ 100 mls/hr Q24H IVPB Last administered on 04/14/16 21:41; Admin Dose 100 MLS/HR; Start 04/09/16 at 20:00 Phenol (Chloraseptic Throat [place]) 2 spray Q2H PRN MT SORE THROAT; Start at 14:30 Pantoprazole (Protonix Tab) 40 mg DAILY@06 PO Last administered on 04/15/16 06 :40; Admin Dose 40 MG; Start 04/11/16 at 17:30 Miconazole (Monistat-3) 1 supp HS VAG Last administered on 04/14/16 21:41; Admin Dose 1 SUPP; Start 04/13/16 at 21:00; Stop 04/15/16 at 21:01 Montelukast Sodium (Singulair) 20 mg DAILY PRN PO asthma Last administered on 09:43; Admin Dose 20 MG; Start 04/14/16 at 09:30 EUGENE SHETTY TWISTING FRAME OPERATOR Apr 15, 2016 15:18
[2016-04-15 16:37] LABS: BASOPHILS % 0.3 % (0.0-2.0); EOSINOPHILS # 0.1 10^3/ul (0.0-0.5); EOSINOPHILS % 1.9 % (0.0-7.0); HEMOGLOBIN 10.7 g/dl (12.0-16.0); LYMPHOCYTES # 0.9 10^3/ul (0.8-2.9); LYMPHOCYTES % 17.1 % (15.0-51.0); MEAN CORPUSCULAR HEMOGLOBIN 26.7 pg (29.0-33.0); MEAN CORPUSCULAR HGB CONC 32.6 g/dl (32.0-37.0); MEAN CORPUSCULAR VOLUME 81.9 fl (82.0-101.0); MEAN PLATELET VOLUME 6.9 fl (7.4-10.4); MONOCYTE # 0.5 10^3/ul (0.3-0.9); NEUTROPHIL # 3.8 10^3/ul (1.6-7.5); NEUTROPHILS % 71.7 % (39.0-77.0); PLATELET COUNT 374 10^3/UL (140-440); RED BLOOD COUNT 4.03 10^6/ul (4.20-5.40); RED CELL DISTRIBUTION WIDTH 16.8 % (11.5-14.5); UNCORRECTED WBC 5.3 10^3/ul (4.8-10.8); WHITE BLOOD COUNT 5.3 10^3/ul (4.8-10.8)
[2016-04-15 16:39] LABS: CONDITION 1; LH ANALYZER COMMENTS 1
--- NOTE | 2016-04-15 18:25 | CONS ---
Date/Time of Note Date/Time of Note DATE: 04/15/16 TIME: 18:25 Assessment/Plan Assessment/Plan Additional Assessment/Plan Additional Assessment/Plan IMPRESSION: 1. Pelvic abscess, status post drainage done by IR.still significant drainage 2. History of diverticulitis. 3. High CEA. 4. Renal mass suspicious for malignancy. 5. Adrenal mass, which is benign. 6. Obesity. 7. Tremor. Plan continue antibiotics will repeat CT with rectal contrast after few days, Consultation Date/Type/Reason Admit Date/Time Apr 05, 2016 at 14:49 Initial Consult Date 04/09/16 Type of Consultation: ID Referring Provider: AIMEE PEREZ MD 24 HR Interval Summary Constitutional: improved Exam/Review of Systems Vital Signs Vitals Vital Signs Date Time Temp Pulse Resp B/P Pulse Ox O2 Delivery O2 Flow Rate FiO2 04/15/16 08:13 99.5 76 17 128/58 94 Intake and Output 04/14/16 04/14/16 04/15/16 15:00 23:00 07:00 Intake Total 460 ml 1360 ml 930 ml Output Total 40 ml 25 ml Balance 420 ml 1335 ml 930 ml Exam Constitutional: alert, oriented, well developed Psych: nl mood/affect, no complaints Head: atraumatic, normocephalic Eyes: EOMI, PERRL, nl conjunctiva, nl lids, nl sclera ENMT: nl external ears & nose, nl lips & teeth, nl nasal mucosa & septum Neck: non-tender, supple Respiratory: clear to auscultation, normal air movement Cardiovascular: nl pulses, regular rate and rhythm Gastrointestinal: nl liver, spleen, non-tender, soft Musculoskeletal: nl extremities to inspection, nl gait and stance Extremities: normal pulses Neurological: PORT CRANE OPERATOR II-XII intact, nl mental status, nl speech, nl strength Skin: nl turgor, No rash or lesions Lymph: nl lymph nodes Results Result Diagram: 04/15/16 1610 04/15/16 1048 Results 24 hrs Laboratory Tests Test 04/14/16 21:18 04/15/16 10:48 04/15/16 16:10 Alanine Aminotransferase (ALT/SGPT) 36 38 Albumin 3.1 L 3.2 L Albumin/Globulin Ratio 0.91 0.88 Alkaline Phosphatase 130 H 142 H Anion Gap 14 14 Aspartate Amino Transf (AST/SGOT) 44 45 Blood Urea Nitrogen 3 L 4 L Calcium Level 8.3 L 8.5 Carbon Dioxide Level 30 31 Chloride Level 98 99 Creatinine 0.58 0.57 Direct Bilirubin 0.00 0.00 Globulin 3.40 H 3.60 H Glucose Level 103 102 Indirect Bilirubin 0.1 0.0 Potassium Level 3.2 L 3.8 Sodium Level 139 140 Total Bilirubin 0.1 L 0.0 L Total Protein 6.5 6.8 Basophils # 0.0 Basophils % 0.3 Blood Morphology Comment Eosinophils # 0.1 Eosinophils % 1.9 Hematocrit 33.0 L Hemoglobin 10.7 L Lymphocytes # 0.9 Lymphocytes % 17.1 Mean Corpuscular Hemoglobin 26.7 L Mean Corpuscular Hemoglobin Concent 32.6 Mean Corpuscular Volume 81.9 L Mean Platelet Volume 6.9 L Monocytes # 0.5 Monocytes % 9.0 Neutrophils # 3.8 Neutrophils % 71.7 Nucleated Red Blood Cells # 0.0 Nucleated Red Blood Cells % 0.0 Platelet Count 374 Red Blood Count 4.03 L Red Cell Distribution Width 16.8 H White Blood Count 5.3 # Medications Medications Current Medications Dextrose/Sodium Chloride (D5-1/2ns) 1,000 ml @ 60 mls/hr [id number] IV Last administered on 04/15/16 10:08; Admin Dose 60 MLS/HR; Start 04/05/16 at 17:36 Ondansetron HCl (Zofran Inj) 4 mg Q6H PRN IV NAUSEA AND/OR VOMITING Last administered on 04/13/16 04:18; Admin Dose 4 MG; Start 04/05/16 at 18:00 Acetaminophen (Tylenol Tab) 650 mg Q6H PRN PO PAIN LEVEL 1-3 OR FEVER Last administered on 04/14/16 21:51; Admin Dose 650 MG; Start 04/05/16 at 18:00 Magnesium Hydroxide (Milk Of Mag) 30 ml DAILY PRN PO CONSTIPATION; Start at 18:00 Zolpidem Tartrate 5 mg 5 mg QHS PRN PO SLEEP Last administered on 04/14/16 01: 40; Admin Dose 5 MG; Start 04/05/16 at 18:00 Metronidazole (Flagyl 500 Mg (Pmx)) 100 ml @ 100 mls/hr Q8 IVPB Last administered on 04/15/16 13:45; Admin Dose 100 MLS/HR; Start 04/05/16 at 22:00 Morphine Sulfate 3 mg 3 mg Q3H PRN IV PAIN Last administered on 04/08/16 12:49 ; Admin Dose 3 MG; Start 04/05/16 at 21:00 Ceftriaxone Sodium (Rocephin) 50 ml @ 100 mls/hr Q24H IVPB Last administered on 04/14/16 21:41; Admin Dose 100 MLS/HR; Start 04/09/16 at 20:00 Phenol (Chloraseptic Throat [place]) 2 spray Q2H PRN MT SORE THROAT; Start at 14:30 Pantoprazole (Protonix Tab) 40 mg DAILY@06 PO Last administered on 04/15/16 06 :40; Admin Dose 40 MG; Start 04/11/16 at 17:30 Miconazole (Monistat-3) 1 supp HS VAG Last administered on 04/14/16 21:41; Admin Dose 1 SUPP; Start 04/13/16 at 21:00; Stop 04/15/16 at 21:01 Montelukast Sodium (Singulair) 20 mg DAILY PRN PO asthma Last administered on 09:43; Admin Dose 20 MG; Start 04/14/16 at 09:30 MARISELA HELM MD Apr 15, 2016 18:25
[2016-04-15 20:15] VITALS: BP 147/79; RESP 21
[2016-04-15] MEDS: CEFTRIAXONE 2 GM/50 ML (PMX) 50 ML IVPB SCH (20:54)
[2016-04-15] MEDS: MICONAZOLE 200 MG VAG SUPP VAG SCH (20:57)
[2016-04-16] MEDS: DEXTROSE 5%-0.45% NACL 1,000 ML IV SCH (03:17)
--- NOTE | 2016-04-16 03:54 | QN ---
Documentation Comment Date/Time of Note DATE: 04/11/16 TIME: 19:13 Assessment/Plan 1. Abdominal pain with large fluid collection (13.6 x 8.2 x 7.6 cm), abscess. DDx of source: Perforated diverticulitis versus perforated appendicitis versus cystic tumor versus other. s/p IR percutaneous drain placed 2/. +Cx. Negative cytology. -Diet as tolerated -Antibiotics 2. Hx of diverticulosis and diverticulitis -As above 3. BMI 37 -Nutrition optimization encouraged -Exercise encouraged 4. Leukocytosis and lactic acidosis with probable early sepsis secondary to above. Resolved -As above -Supportive measures 5. Left adrenal adenoma -Workup per endocrine and oncology appreciated > no further w/u per Oncology 6. 2.6 x 2.3 x 1.8 cm mass measuring 80 HU extending laterally at the junction of the mid and superior pole of the right kidney suspicious for neoplasm -Workup per urology and oncology appreciated > eventual partial nephrectomy after acute process resolves. 7. Hepatomegaly with hepatic cyst -Nutrition and weight optimization 8. Tremors -Medical management Thank you, Subjective No fevers or chills. Still has abdominal pain but improving. No nausea vomiting. No chest pain or shortness of breath. No visual or neurologic changes. No dysuria. Bowel function. Exam/Review of Systems Vital Signs Vitals noted Exam Constitutional: alert, obese, oriented, No distress Psych: anxiety Head: atraumatic, normocephalic Eyes: EOMI, PERRL, nl conjunctiva, No icteric ENMT: nl external ears & nose, nl lips & teeth, No mucosa pink and moist Neck: non-tender, supple Respiratory: normal air movement, No congested cough, No labored breathing Cardiovascular: No edema, No regular rate and rhythm Gastrointestinal: distended, tender, No rebound or guarding. Left sided drain. Musculoskeletal: nl extremities to inspection, No joint tenderness Extremities: normal pulses, No calf tenderness, No cyanosis Neurological: nl mental status, nl speech, nl strength. Tremors Skin: nl turgor, No diaphoresis, No rash or lesions Lymph: nl lymph nodes, nontender Results Noted FLORIAN TABOR MD Apr 16, 2016 03:54
--- NOTE | 2016-04-16 03:56 | QN ---
Documentation Comment Date/Time of Note DATE: 04/13/16 TIME: 19:13 Assessment/Plan 1. Abdominal pain with large fluid collection (13.6 x 8.2 x 7.6 cm), abscess. DDx of source: Perforated diverticulitis versus perforated appendicitis versus cystic tumor versus other. s/p IR percutaneous drain placed 2/3. +Cx. Negative cytology. -Diet as tolerated -Antibiotics -Drain -Repeat imaging with rectal contrast at some point 2. Hx of diverticulosis and diverticulitis -As above 3. BMI 37 -Nutrition optimization encouraged -Exercise encouraged 4. Leukocytosis and lactic acidosis with probable early sepsis secondary to above. Resolved -As above -Supportive measures 5. Left adrenal adenoma -Workup per endocrine and oncology appreciated > no further w/u per Oncology 6. 2.6 x 2.3 x 1.8 cm mass measuring 80 HU extending laterally at the junction of the mid and superior pole of the right kidney suspicious for neoplasm -Workup per urology and oncology appreciated > eventual partial nephrectomy after acute process resolves. 7. Hepatomegaly with hepatic cyst -Nutrition and weight optimization 8. Tremors -Medical management Thank you, Subjective No fevers or chills. Still has abdominal pain but improving. No nausea vomiting. No chest pain or shortness of breath. No visual or neurologic changes. No dysuria. Bowel function. Exam/Review of Systems Vital Signs Vitals noted Exam Constitutional: alert, obese, oriented, No distress Psych: anxiety Head: atraumatic, normocephalic Eyes: EOMI, PERRL, nl conjunctiva, No icteric ENMT: nl external ears & nose, nl lips & teeth, No mucosa pink and moist Neck: non-tender, supple Respiratory: normal air movement, No congested cough, No labored breathing Cardiovascular: No edema, No regular rate and rhythm Gastrointestinal: distended, tender, No rebound or guarding. Left sided drain. Musculoskeletal: nl extremities to inspection, No joint tenderness Extremities: normal pulses, No calf tenderness, No cyanosis Neurological: nl mental status, nl speech, nl strength. Tremors Skin: nl turgor, No diaphoresis, No rash or lesions Lymph: nl lymph nodes, nontender Results Noted FLORIAN TABOR MD Apr 16, 2016 03:56
[2016-04-16] MEDS: PANTOPRAZOLE (EC) 40 MG TAB PO SCH (05:10)
[2016-04-16] MEDS: metroNIDAZOLE 500 MG/NS (PMX) 100 ML IVPB SCH ×3 (05:10→22:03)
[2016-04-16 08:19] VITALS: BP 132/91; RESP 20
--- NOTE | 2016-04-16 12:30 | CONS ---
Date/Time of Note Date/Time of Note DATE: 04/16/16 TIME: 12:29 Assessment/Plan Assessment/Plan Chief Complaint/Hosp Course SUBJECTIVE: No acute changes. The patient is lying comfortably in bed, feels good, no fevers, nad MICROBIOLOGY: Abdominal drainage growing E. coli, strep and Bacteroides fragilis. Blood cultures have been negative. ANTIMICROBIALS: The patient is on: 1. Rocephin. 2. Flagyl. ALLERGIES: PENICILLIN. PHYSICAL EXAMINATION: GENERAL: This is a morbidly obese elderly woman who is in no distress. HEENT: Head atraumatic, normocephalic. Sclerae anicteric. Buccal mucosa dry. NECK: Supple. Trachea midline. CHEST: Rise symmetrical. Breath sounds clear. HEART: S1, S2. ABDOMEN: Soft. Bowel tones present. EXTREMITIES: Without cyanosis. SKIN: Without cyanosis. The patient has left-sided intra-abdominal drainage catheter. ASSESSMENT: 1. Abdominal pain with large fluid collection, status post CT-guided drainage with placement of catheter and fluid culture growing Escherichia coli, streptococcus and Bacteroides fragilis, covered with Flagyl, Rocephin. 2. Morbid obesity. 3. Systemic inflammatory response syndrome. 4. Renal mass suspicious for malignancy. 5. Anemia. PLAN: The patient remains stable. Cytology of the abdominal fluid revealed no malignancy. Continue antibiotics. Surgical rec-s noted. Consider PICC DW staff Problems: Consultation Date/Type/Reason Admit Date/Time Apr 05, 2016 at 14:49 Initial Consult Date 04/09/16 Type of Consultation: ID Referring Provider: AIMEE PEREZ MD Exam/Review of Systems Vital Signs Vitals Vital Signs Date Time Temp Pulse Resp B/P Pulse Ox O2 Delivery O2 Flow Rate FiO2 04/16/16 08:19 98.3 71 20 132/91 95 Intake and Output 04/15/16 04/15/16 04/16/16 15:00 23:00 07:00 Intake Total 160 ml 760 ml 1310 ml Output Total 40 ml Balance 160 ml 720 ml 1310 ml Results Result Diagram: 04/15/16 1610 04/15/16 1048 Results 24 hrs Laboratory Tests Test 04/15/16 16:10 Basophils # 0.0 Basophils % 0.3 Blood Morphology Comment Eosinophils # 0.1 Eosinophils % 1.9 Hematocrit 33.0 L Hemoglobin 10.7 L Lymphocytes # 0.9 Lymphocytes % 17.1 Mean Corpuscular Hemoglobin 26.7 L Mean Corpuscular Hemoglobin Concent 32.6 Mean Corpuscular Volume 81.9 L Mean Platelet Volume 6.9 L Monocytes # 0.5 Monocytes % 9.0 Neutrophils # 3.8 Neutrophils % 71.7 Nucleated Red Blood Cells # 0.0 Nucleated Red Blood Cells % 0.0 Platelet Count 374 Red Blood Count 4.03 L Red Cell Distribution Width 16.8 H White Blood Count 5.3 # Medications Medications Current Medications Dextrose/Sodium Chloride (D5-1/2ns) 1,000 ml @ 60 mls/hr [id number] IV Last administered on 04/16/16 03:17; Admin Dose 60 MLS/HR; Start 04/05/16 at 17:36 Ondansetron HCl (Zofran Inj) 4 mg Q6H PRN IV NAUSEA AND/OR VOMITING Last administered on 04/13/16 04:18; Admin Dose 4 MG; Start 04/05/16 at 18:00 Acetaminophen (Tylenol Tab) 650 mg Q6H PRN PO PAIN LEVEL 1-3 OR FEVER Last administered on 04/14/16 21:51; Admin Dose 650 MG; Start 04/05/16 at 18:00 Magnesium Hydroxide (Milk Of Mag) 30 ml DAILY PRN PO CONSTIPATION; Start at 18:00 Zolpidem Tartrate 5 mg 5 mg QHS PRN PO SLEEP Last administered on 04/14/16 01: 40; Admin Dose 5 MG; Start 04/05/16 at 18:00 Metronidazole (Flagyl 500 Mg (Pmx)) 100 ml @ 100 mls/hr Q8 IVPB Last administered on 04/16/16 05:10; Admin Dose 100 MLS/HR; Start 04/05/16 at 22:00 Morphine Sulfate 3 mg 3 mg Q3H PRN IV PAIN Last administered on 04/08/16 12:49 ; Admin Dose 3 MG; Start 04/05/16 at 21:00 Ceftriaxone Sodium (Rocephin) 50 ml @ 100 mls/hr Q24H IVPB Last administered on 04/15/16 20:54; Admin Dose 100 MLS/HR; Start 04/09/16 at 20:00 Phenol (Chloraseptic Throat [place]) 2 spray Q2H PRN MT SORE THROAT; Start at 14:30 Pantoprazole (Protonix Tab) 40 mg DAILY@06 PO Last administered on 04/16/16 05 :10; Admin Dose 40 MG; Start 04/11/16 at 17:30 Montelukast Sodium (Singulair) 20 mg DAILY PRN PO asthma Last administered on 09:43; Admin Dose 20 MG; Start 04/14/16 at 09:30 AVIVA PACKER NP Apr 16, 2016 12:30
--- NOTE | 2016-04-16 13:01 | PN ---
Date/Time of Note Date/Time of Note DATE: 04/16/16 TIME: 12:59 Assessment/Plan VTE Prophylaxis VTE Prophylaxis Intervention: other Assessment/Plan Chief Complaint/Hosp Course Assessment/Plan 1. The patient has abd mass. 2. Possible diverticulitis. 3. Rule out abscess. 4. History of diverticulitis. 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 [id number] tolerating po feels better on iv abx Problems: Subjective 24 Hr Interval Summary Constitutional: no complaints ENT: no complaints Cardiovascular: no complaints Gastrointestinal: no complaints Exam/Review of Systems Vital Signs Vitals Vital Signs Date Time Temp Pulse Resp B/P Pulse Ox O2 Delivery O2 Flow Rate FiO2 04/16/16 08:19 98.3 71 20 132/91 95 Intake and Output 04/15/16 04/15/16 04/16/16 15:00 23:00 07:00 Intake Total 160 ml 760 ml 1310 ml Output Total 40 ml Balance 160 ml 720 ml 1310 ml Exam Constitutional: alert, oriented, well developed Psych: no complaints Head: normocephalic Eyes: nl conjunctiva ENMT: nl external ears & nose Neck: supple Respiratory: clear to auscultation Cardiovascular: regular rate and rhythm Gastrointestinal: soft Results Result Diagram: 04/15/16 1610 04/15/16 1048 Results 24 hrs Laboratory Tests Test 04/15/16 16:10 Basophils # 0.0 Basophils % 0.3 Blood Morphology Comment Eosinophils # 0.1 Eosinophils % 1.9 Hematocrit 33.0 L Hemoglobin 10.7 L Lymphocytes # 0.9 Lymphocytes % 17.1 Mean Corpuscular Hemoglobin 26.7 L Mean Corpuscular Hemoglobin Concent 32.6 Mean Corpuscular Volume 81.9 L Mean Platelet Volume 6.9 L Monocytes # 0.5 Monocytes % 9.0 Neutrophils # 3.8 Neutrophils % 71.7 Nucleated Red Blood Cells # 0.0 Nucleated Red Blood Cells % 0.0 Platelet Count 374 Red Blood Count 4.03 L Red Cell Distribution Width 16.8 H White Blood Count 5.3 # Medications Medications Current Medications Dextrose/Sodium Chloride (D5-1/2ns) 1,000 ml @ 60 mls/hr [id number] IV Last administered on 04/16/16 03:17; Admin Dose 60 MLS/HR; Start 04/05/16 at 17:36 Ondansetron HCl (Zofran Inj) 4 mg Q6H PRN IV NAUSEA AND/OR VOMITING Last administered on 04/13/16 04:18; Admin Dose 4 MG; Start 04/05/16 at 18:00 Acetaminophen (Tylenol Tab) 650 mg Q6H PRN PO PAIN LEVEL 1-3 OR FEVER Last administered on 04/14/16 21:51; Admin Dose 650 MG; Start 04/05/16 at 18:00 Magnesium Hydroxide (Milk Of Mag) 30 ml DAILY PRN PO CONSTIPATION; Start at 18:00 Zolpidem Tartrate 5 mg 5 mg QHS PRN PO SLEEP Last administered on 04/14/16 01: 40; Admin Dose 5 MG; Start 04/05/16 at 18:00 Metronidazole (Flagyl 500 Mg (Pmx)) 100 ml @ 100 mls/hr Q8 IVPB Last administered on 04/16/16 05:10; Admin Dose 100 MLS/HR; Start 04/05/16 at 22:00 Morphine Sulfate 3 mg 3 mg Q3H PRN IV PAIN Last administered on 04/08/16 12:49 ; Admin Dose 3 MG; Start 04/05/16 at 21:00 Ceftriaxone Sodium (Rocephin) 50 ml @ 100 mls/hr Q24H IVPB Last administered on 04/15/16 20:54; Admin Dose 100 MLS/HR; Start 04/09/16 at 20:00 Phenol (Chloraseptic Throat [place]) 2 spray Q2H PRN MT SORE THROAT; Start at 14:30 Pantoprazole (Protonix Tab) 40 mg DAILY@06 PO Last administered on 04/16/16 05 :10; Admin Dose 40 MG; Start 04/11/16 at 17:30 Montelukast Sodium (Singulair) 20 mg DAILY PRN PO asthma Last administered on 09:43; Admin Dose 20 MG; Start 04/14/16 at 09:30 TIERRA BYRD MD Apr 16, 2016 13:01
--- NOTE | 2016-04-16 19:04 | PN ---
Date/Time of Note Date/Time of Note DATE: 04/16/16 TIME: 19:03 Assessment/Plan Assessment/Plan Chief Complaint/Hosp Course 1. Abdominal pain with large fluid collection (13.6 x 8.2 x 7.6 cm), abscess. DDx of source: Perforated diverticulitis versus perforated appendicitis versus cystic tumor versus other. s/p IR percutaneous drain placed 04/06. +Cx. Negative cytology. -Diet as tolerated -Antibiotics -Drain -Repeat imaging with rectal contrast at some point 2. Hx of diverticulosis and diverticulitis -As above 3. BMI 37 -Nutrition optimization encouraged -Exercise encouraged 4. Leukocytosis and lactic acidosis with probable early sepsis secondary to above. Resolved -As above -Supportive measures 5. Left adrenal adenoma -Workup per endocrine and oncology appreciated > no further w/u per Oncology 6. 2.6 x 2.3 x 1.8 cm mass measuring 80 HU extending laterally at the junction of the mid and superior pole of the right kidney suspicious for neoplasm -Workup per urology and oncology appreciated > eventual partial nephrectomy after acute process resolves. 7. Hepatomegaly with hepatic cyst -Nutrition and weight optimization 8. Tremors -Medical management Thank you, Problems: Subjective 24 Hr Interval Summary No fevers or chills. Still has abdominal pain but improving. No nausea vomiting. No chest pain or shortness of breath. No visual or neurologic changes. No dysuria. Bowel function. Exam/Review of Systems Vital Signs Vitals Vital Signs Date Time Temp Pulse Resp B/P Pulse Ox O2 Delivery O2 Flow Rate FiO2 04/16/16 08:19 98.3 71 20 132/91 95 Intake and Output 04/15/16 04/15/16 04/16/16 15:00 23:00 07:00 Intake Total 160 ml 760 ml 1310 ml Output Total 40 ml Balance 160 ml 720 ml 1310 ml Exam Free Text/Dictation Constitutional: alert, obese, oriented, No distress Psych: anxiety Head: atraumatic, normocephalic Eyes: EOMI, PERRL, nl conjunctiva, No icteric ENMT: nl external ears & nose, nl lips & teeth, No mucosa pink and moist Neck: non-tender, supple Respiratory: normal air movement, No congested cough, No labored breathing Cardiovascular: No edema, No regular rate and rhythm Gastrointestinal: distended, tender, No rebound or guarding. Left sided drain. Musculoskeletal: nl extremities to inspection, No joint tenderness Extremities: normal pulses, No calf tenderness, No cyanosis Neurological: nl mental status, nl speech, nl strength. Tremors Skin: nl turgor, No diaphoresis, No rash or lesions Lymph: nl lymph nodes, nontender Results Result Diagram: 04/15/16 1610 04/15/16 1048 FLORIAN TABOR MD Apr 16, 2016 19:04
[2016-04-16] MEDS ORDERED: IOHEXOL 14.3 MG(I)/ML (ADULT) BTL PO ONE (19:30)
--- NOTE | 2016-04-16 19:35 | CONS ---
Date/Time of Note Date/Time of Note DATE: 04/16/16 TIME: 19:34 Assessment/Plan Assessment/Plan Additional Assessment/Plan Additional Assessment/Plan IMPRESSION: 1. Pelvic abscess, status post drainage done by IR.still significant drainage 2. History of diverticulitis. 3. High CEA. 4. Renal mass suspicious for malignancy. 5. Adrenal mass, which is benign. 6. Obesity. 7. Tremor. Plan continue antibiotics will repeat CT with rectal contrast after few days, Consultation Date/Type/Reason Admit Date/Time Apr 05, 2016 at 14:49 Initial Consult Date 04/09/16 Type of Consultation: ID Referring Provider: AIMEE PEREZ MD 24 HR Interval Summary Constitutional: improved, no complaints Exam/Review of Systems Vital Signs Vitals Vital Signs Date Time Temp Pulse Resp B/P Pulse Ox O2 Delivery O2 Flow Rate FiO2 04/16/16 08:19 98.3 71 20 132/91 95 Intake and Output 04/15/16 04/15/16 04/16/16 14:59 22:59 06:59 Intake Total 160 ml 760 ml 1310 ml Output Total 40 ml Balance 160 ml 720 ml 1310 ml Exam Constitutional: alert, oriented, well developed Psych: nl mood/affect, no complaints Head: atraumatic, normocephalic Eyes: EOMI, PERRL, nl conjunctiva, nl lids, nl sclera ENMT: nl external ears & nose, nl lips & teeth, nl nasal mucosa & septum Neck: non-tender, supple Respiratory: clear to auscultation, normal air movement Cardiovascular: nl pulses, regular rate and rhythm Gastrointestinal: nl liver, spleen, non-tender, soft Musculoskeletal: nl extremities to inspection, nl gait and stance Extremities: normal pulses 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, nl mental status, nl speech, nl strength Skin: nl turgor, No rash or lesions Lymph: nl lymph nodes Results Result Diagram: 04/15/16 1610 04/15/16 1048 Medications Medications Current Medications Dextrose/Sodium Chloride (D5-1/2ns) 1,000 ml @ 60 mls/hr [id number] IV Last administered on 04/16/16t 03:17; Admin Dose 60 MLS/HR; Start 04/05/16 at 17:36 Ondansetron HCl (Zofran Inj) 4 mg Q6H PRN IV NAUSEA AND/OR VOMITING Last administered on 04/13/16 04:18; Admin Dose 4 MG; Start 04/05/16 at 18:00 Acetaminophen (Tylenol Tab) 650 mg Q6H PRN PO PAIN LEVEL 1-3 OR FEVER Last administered on 04/14/16 21:51; Admin Dose 650 MG; Start 04/05/16 at 18:00 Magnesium Hydroxide (Milk Of Mag) 30 ml DAILY PRN PO CONSTIPATION; Start at 18:00 Zolpidem Tartrate 5 mg 5 mg QHS PRN PO SLEEP Last administered on 04/14/16 01: 40; Admin Dose 5 MG; Start 04/05/16 at 18:00 Metronidazole (Flagyl 500 Mg (Pmx)) 100 ml @ 100 mls/hr Q8 IVPB Last administered on 04/16/16 13:56; Admin Dose 100 MLS/HR; Start 04/05/16 at 22:00 Morphine Sulfate 3 mg 3 mg Q3H PRN IV PAIN Last administered on 04/08/16 12:49 ; Admin Dose 3 MG; Start 04/05/16 at 21:00 Ceftriaxone Sodium (Rocephin) 50 ml @ 100 mls/hr Q24H IVPB Last administered on 04/15/16 20:54; Admin Dose 100 MLS/HR; Start 04/09/16 at 20:00 Phenol (Chloraseptic Throat [place]) 2 spray Q2H PRN [place] SORE THROAT; Start at 14:30 Pantoprazole (Protonix Tab) 40 mg DAILY@06 PO Last administered on 04/16/16 05 :10; Admin Dose 40 MG; Start 04/11/16 at 17:30 Montelukast Sodium (Singulair) 20 mg DAILY PRN PO asthma Last administered on 09:43; Admin Dose 20 MG; Start 04/14/16 at 09:30 MARISELA HELM MD Apr 16, 2016 19:35
[2016-04-16 20:10] VITALS: BP 170/72; RESP 22
[2016-04-16] MEDS: CEFTRIAXONE 2 GM/50 ML (PMX) 50 ML IVPB SCH (20:46)
[2016-04-16 22:30] VITALS: BP 135/72; PULSE 74; RESP 18
[2016-04-17] MEDS: DEXTROSE 5%-0.45% NACL 1,000 ML IV SCH ×3 (02:25→15:46)
--- NOTE | 2016-04-17 04:16 | RADRPT ---
PROCEDURE: CT of the abdomen and pelvis without contrast CLINICAL INDICATION: Pelvic abscess. Follow-up study.. TECHNIQUE: Spiral CT images through the abdomen and pelvis without the use of contrast. The admin istered radiation dose is CTDI 22.76 and DLP 1177.82. One or more of the following dose reduction t echniques were used: automated exposure control, adjustment of the mA and/or kV according to patient size, or use of iterative reconstruction technique. COMPARISON: 04/05/2016 FINDINGS: Lack of oral and intravenous contrast somewhat limits evaluation. Slight dependent atelectasis of the lung bases is seen. No pleural effusion is seen. Small hiatal hernia is seen. There is a small pericardial effusion. The gallbladder is slightly distended with some hyperdense material within. Noncontrast imaging of the liver, spleen, right adrenal, left kidney, and pancreas are unremarkable in appearance. Again s een is a hyperdense lesion of the right kidney measuring 2 cm. This is again suspicious for neoplas m. 1.3 cm left adrenal lesion measures -5 HU on today's study and most likely represents an adenoma or possibly angiomyolipoma.. There has been interval placement of a drain within the large complex left pelvic fluid collection which contains air and multiple calcifications. This has decreased in size slightly, measuring 9.9 x 8.4 cm and previously measuring 9.2 x 10.9 cm. Surrounding fat stra nding is seen and there is new stranding of the subcutaneous soft tissues of the left flank. No von e air is seen. A small of free fluid is seen in the right pelvis. The bladder is unremarkable in a ppearance. Colonic diverticulosis is seen. As noted before, the appendix appears to extend towards the complex fluid collection and may be the source of the fluid collection.. Degenerative c hange of the spine is seen. Small sclerotic bony lesions of the pelvis which may represent bone chetna nds. Sclerosis about the left greater than right sacroiliac joint may be due to sacroiliitis. IMPRESSION: Slight interval decrease in size of complex left pelvic fluid collection following drain placement. Coarse calcifications are again seen within the collection.. Stranding of the subcutaneous soft ti ssues of the left flank. Left adrenal adenoma. 2 cm enhancing right renal lesion again seen, consistent with renal cell carcinoma until proven othe rwise. RPTAT: HLBE Alice Ramírez, Physician Date Time Electronically viewed and signed by Alice Ramírez, Physician on 04/17/2016 04:16 LE/
[2016-04-17] MEDS: metroNIDAZOLE 500 MG/NS (PMX) 100 ML IVPB SCH ×3 (05:31→22:02)
[2016-04-17] MEDS: PANTOPRAZOLE (EC) 40 MG TAB PO SCH (05:31)
[2016-04-17 08:22] VITALS: BP 137/59; RESP 20
--- NOTE | 2016-04-17 09:09 | CONS ---
Date/Time of Note Date/Time of Note DATE: 04/17/16 TIME: 09:08 Assessment/Plan Assessment/Plan Additional Assessment/Plan IMPRESSION: 1. Pelvic abscess, status post drainage done by IR.still significant drainage 2. History of diverticulitis. 3. High CEA. 4. Renal mass suspicious for malignancy. 5. Adrenal mass, which is benign. 6. Obesity. 7. Tremor. Plan continue antibiotics, still has significant drainage will repeat CT with rectal contrast after few days Consultation Date/Type/Reason Admit Date/Time Apr 05, 2016 at 14:49 Initial Consult Date 04/09/16 Type of Consultation: ID Referring Provider: AIMEE PEREZ MD 24 HR Interval Summary Constitutional: improved Exam/Review of Systems Vital Signs Vitals Vital Signs Date Time Temp Pulse Resp B/P Pulse Ox O2 Delivery O2 Flow Rate FiO2 04/16/16 22:30 98.2 74 18 135/72 99 Room Air Intake and Output 04/16/16 04/16/16 04/17/16 15:00 23:00 07:00 Intake Total 510 ml 1520 ml Output Total 50 ml 860 ml Balance 460 ml 660 ml Exam Constitutional: alert, oriented, well developed Psych: nl mood/affect, no complaints Head: atraumatic, normocephalic Eyes: EOMI, PERRL, nl conjunctiva, nl lids, nl sclera ENMT: nl external ears & nose, nl lips & teeth, nl nasal mucosa & septum Neck: non-tender, supple Respiratory: clear to auscultation, normal air movement Cardiovascular: nl pulses, regular rate and rhythm Gastrointestinal: nl liver, spleen, non-tender, soft Musculoskeletal: nl extremities to inspection, nl gait and stance Extremities: normal pulses 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, nl mental status, nl speech, nl strength Skin: nl turgor, No rash or lesions Lymph: nl lymph nodes Results Result Diagram: 04/15/16 1610 04/15/16 1048 Medications Medications Current Medications Dextrose/Sodium Chloride (D5-1/2ns) 1,000 ml @ 60 mls/hr [id number] IV Last administered on 04/17/16 02:25; Admin Dose 60 MLS/HR; Start 04/05/16 at 17:36 Ondansetron HCl (Zofran Inj) 4 mg Q6H PRN IV NAUSEA AND/OR VOMITING Last administered on 04/13/16 04:18; Admin Dose 4 MG; Start 04/05/16 at 18:00 Acetaminophen (Tylenol Tab) 650 mg Q6H PRN PO PAIN LEVEL 1-3 OR FEVER Last administered on 04/14/16 21:51; Admin Dose 650 MG; Start 04/05/16 at 18:00 Magnesium Hydroxide (Milk Of Mag) 30 ml DAILY PRN PO CONSTIPATION; Start at 18:00 Zolpidem Tartrate 5 mg 5 mg QHS PRN PO SLEEP Last administered on 04/14/16 01: 40; Admin Dose 5 MG; Start 04/05/16 at 18:00 Metronidazole (Flagyl 500 Mg (Pmx)) 100 ml @ 100 mls/hr Q8 IVPB Last administered on 04/17/16 05:31; Admin Dose 100 MLS/HR; Start 04/05/16 at 22:00 Morphine Sulfate 3 mg 3 mg Q3H PRN IV PAIN Last administered on 04/08/16 12:49 ; Admin Dose 3 MG; Start 04/05/16 at 21:00 Ceftriaxone Sodium (Rocephin) 50 ml @ 100 mls/hr Q24H IVPB Last administered on 04/16/16 20:46; Admin Dose 100 MLS/HR; Start 04/09/16 at 20:00 Phenol (Chloraseptic Throat [place]) 2 spray Q2H PRN MT SORE THROAT; Start at 14:30 Pantoprazole (Protonix Tab) 40 mg DAILY@06 PO Last administered on 04/17/16 05 :31; Admin Dose 40 MG; Start 04/11/16 at 17:30 Montelukast Sodium (Singulair) 20 mg DAILY PRN PO asthma Last administered on 09:43; Admin Dose 20 MG; Start 04/14/16 at 09:30 MARISELA HELM MD Apr 17, 2016 09:09
[2016-04-17 09:25] VITALS: BP 137/59; PULSE 64; RESP 20
--- NOTE | 2016-04-17 13:11 | CONS ---
Date/Time of Note Date/Time of Note DATE: 04/17/16 TIME: 13:09 Assessment/Plan Assessment/Plan Chief Complaint/Hosp Course SUBJECTIVE: No acute changes. The patient is lying comfortably in bed, feels good, no fevers, nad MICROBIOLOGY: Abdominal drainage growing E. coli, strep and Bacteroides fragilis. Blood cultures have been negative. ANTIMICROBIALS: The patient is on: 1. Rocephin. 2. Flagyl. ALLERGIES: PENICILLIN. PHYSICAL EXAMINATION: GENERAL: This is a morbidly obese elderly woman who is in no distress. HEENT: Head atraumatic, normocephalic. Sclerae anicteric. Buccal mucosa dry. NECK: Supple. Trachea midline. CHEST: Rise symmetrical. Breath sounds clear. HEART: S1, S2. ABDOMEN: Soft. Bowel tones present. EXTREMITIES: Without cyanosis. SKIN: Without cyanosis. The patient has left-sided intra-abdominal drainage catheter. ASSESSMENT: 1. Abdominal pain with large fluid collection, status post CT-guided drainage with placement of catheter and fluid culture growing Escherichia coli, streptococcus and Bacteroides fragilis, covered with Flagyl, Rocephin. 2. Morbid obesity. 3. Systemic inflammatory response syndrome. 4. Renal mass suspicious for malignancy. 5. Anemia. PLAN: The patient remains stable. Still with significant drainage, cytology of the abdominal fluid revealed no malignancy. Continue antibiotics. Surgical/GI rec-s==> pending repeat CT [facility] staff Problems: Consultation Date/Type/Reason Admit Date/Time Apr 05, 2016 at 14:49 Initial Consult Date 04/09/16 Type of Consultation: ID Referring Provider: AIMEE PEREZ MD Exam/Review of Systems Vital Signs Vitals Vital Signs Date Time Temp Pulse Resp B/P Pulse Ox O2 Delivery O2 Flow Rate FiO2 04/17/16 09:25 98.6 64 20 137/59 95 Room Air Intake and Output 04/16/16 04/16/16 04/17/16 15:00 23:00 07:00 Intake Total 510 ml 1520 ml Output Total 50 ml 860 ml Balance 460 ml 660 ml Results Result Diagram: 04/15/16 1610 04/15/16 1048 Medications Medications Current Medications Dextrose/Sodium Chloride (D5-1/2ns) 1,000 ml @ 60 mls/hr [id number] IV Last administered on 04/17/16t 02:25; Admin Dose 60 MLS/HR; Start 04/05/16 at 17:36 Ondansetron HCl (Zofran Inj) 4 mg Q6H PRN IV NAUSEA AND/OR VOMITING Last administered on 04/13/16 04:18; Admin Dose 4 MG; Start 04/05/16 at 18:00 Acetaminophen (Tylenol Tab) 650 mg Q6H PRN PO PAIN LEVEL 1-3 OR FEVER Last administered on 04/14/16 21:51; Admin Dose 650 MG; Start 04/05/16 at 18:00 Magnesium Hydroxide (Milk Of Mag) 30 ml DAILY PRN PO CONSTIPATION; Start at 18:00 Zolpidem Tartrate 5 mg 5 mg QHS PRN PO SLEEP Last administered on 04/14/16 01: 40; Admin Dose 5 MG; Start 04/05/16 at 18:00 Metronidazole (Flagyl 500 Mg (Pmx)) 100 ml @ 100 mls/hr Q8 IVPB Last administered on 04/17/16 05:31; Admin Dose 100 MLS/HR; Start 04/05/16 at 22:00 Morphine Sulfate 3 mg 3 mg Q3H PRN IV PAIN Last administered on 04/08/16 12:49 ; Admin Dose 3 MG; Start 04/05/16 at 21:00 Ceftriaxone Sodium (Rocephin) 50 ml @ 100 mls/hr Q24H IVPB Last administered on 04/16/16 20:46; Admin Dose 100 MLS/HR; Start 04/09/16 at 20:00 Phenol (Chloraseptic Throat [place]) 2 spray Q2H PRN MT SORE THROAT; Start at 14:30 Pantoprazole (Protonix Tab) 40 mg DAILY@06 PO Last administered on 04/17/16 05 :31; Admin Dose 40 MG; Start 04/11/16 at 17:30 Montelukast Sodium (Singulair) 20 mg DAILY PRN PO asthma Last administered on 09:43; Admin Dose 20 MG; Start 04/14/16 at 09:30 AVIVA PACKER NP Apr 17, 2016 13:11
[2016-04-17 20:00] VITALS: BP 149/65; RESP 20
[2016-04-17] MEDS: CEFTRIAXONE 2 GM/50 ML (PMX) 50 ML IVPB SCH (20:16)
--- NOTE | 2016-04-17 20:47 | PN ---
Date/Time of Note Date/Time of Note DATE: 04/17/16 TIME: 20:45 Assessment/Plan Lines/Catheters IV Catheter Type (from [facility]): Peripheral IV Parker in Place (from [facility]): No Assessment/Plan Chief Complaint/Hosp Course 1. Abdominal pain with large fluid collection (13.6 x 8.2 x 7.6 cm), abscess. DDx of source: Perforated diverticulitis versus perforated appendicitis versus cystic tumor versus other. s/p IR percutaneous drain placed 04/06. +Cx. Negative cytology. -Diet as tolerated -Antibiotics -Drain -Repeat imaging with rectal contrast at some point 2. Hx of diverticulosis and diverticulitis -As above 3. BMI 37 -Nutrition optimization encouraged -Exercise encouraged 4. Leukocytosis and lactic acidosis with probable early sepsis secondary to above. Resolved -As above -Supportive measures 5. Left adrenal adenoma -Workup per endocrine and oncology appreciated > no further w/u per Oncology 6. 2.6 x 2.3 x 1.8 cm mass measuring 80 HU extending laterally at the junction of the mid and superior pole of the right kidney suspicious for neoplasm -Workup per urology and oncology appreciated > eventual partial nephrectomy after acute process resolves. 7. Hepatomegaly with hepatic cyst -Nutrition and weight optimization 8. Tremors -Medical management Thank you, Problems: Subjective [address] No fevers or chills. Still has abdominal pain but improving. No nausea vomiting. No chest pain or shortness of breath. No visual or neurologic changes. No dysuria. Bowel function. Exam/Review of Systems Vital Signs Vitals Vital Signs Date Time Temp Pulse Resp B/P Pulse Ox O2 Delivery O2 Flow Rate FiO2 04/17/16 09:25 98.6 64 20 137/59 95 Room Air Intake and Output 04/16/16 04/16/16 04/17/16 15:00 23:00 07:00 Intake Total 510 ml 1520 ml Output Total 50 ml 860 ml Balance 460 ml 660 ml Exam Free Text/Dictation Constitutional: alert, obese, oriented, No distress Psych: anxiety Head: atraumatic, normocephalic Eyes: EOMI, PERRL, nl conjunctiva, No icteric ENMT: nl external ears & nose, nl lips & teeth, No mucosa pink and moist Neck: non-tender, supple Respiratory: normal air movement, No congested cough, No labored breathing Cardiovascular: No edema, No regular rate and rhythm Gastrointestinal: distended, tender, No rebound or guarding. Left sided drain. Musculoskeletal: nl extremities to inspection, No joint tenderness Extremities: normal pulses, No calf tenderness, No cyanosis Neurological: nl mental status, nl speech, nl strength. Tremors Skin: nl turgor, No diaphoresis, No rash or lesions Lymph: nl lymph nodes, nontender Results Result Diagram: 04/15/16 1610 04/15/16 1048 Results Last [address]: Slight interval decrease in size of complex left pelvic fluid collection following drain placement. Coarse calcifications are again seen within the collection.. Stranding of the subcutaneous soft tissues of the left flank. Left adrenal adenoma. 2 cm enhancing right renal lesion again seen, consistent with renal cell carcinoma until proven otherwise. FLORIAN TABOR MD Apr 17, 2016 20:47
[2016-04-18] MEDS: metroNIDAZOLE 500 MG/NS (PMX) 100 ML IVPB SCH ×3 (05:30→21:51)
[2016-04-18] MEDS: PANTOPRAZOLE (EC) 40 MG TAB PO SCH (05:30)
[2016-04-18] MEDS: DEXTROSE 5%-0.45% NACL 1,000 ML IV SCH ×2 (05:36→10:37)
[2016-04-18 08:20] VITALS: BP 129/75; RESP 20
--- NOTE | 2016-04-18 13:03 | CONS ---
Date/Time of Note Date/Time of Note DATE: 04/18/16 TIME: 13:02 Assessment/Plan Assessment/Plan Chief Complaint/Hosp Course SUBJECTIVE: No acute changes. The patient is lying comfortably in bed, alert, feels good, no fevers, nad MICROBIOLOGY: Abdominal drainage growing E. coli, strep and Bacteroides fragilis. Blood cultures have been negative. ANTIMICROBIALS: The patient is on: 1. Rocephin. 2. Flagyl. ALLERGIES: PENICILLIN. PHYSICAL EXAMINATION: GENERAL: This is a morbidly obese elderly woman who is in no distress. HEENT: Head atraumatic, normocephalic. Sclerae anicteric. Buccal mucosa dry. NECK: Supple. Trachea midline. CHEST: Rise symmetrical. Breath sounds clear. HEART: S1, S2. ABDOMEN: Soft. Bowel tones present. EXTREMITIES: Without cyanosis. SKIN: Without cyanosis. The patient has left-sided intra-abdominal drainage catheter. ASSESSMENT: 1. S/p abdominal pain with large fluid collection, status post CT-guided drainage with placement of catheter and fluid culture growing Escherichia coli, streptococcus and Bacteroides fragilis, covered with Flagyl, Rocephin. 2. Morbid obesity. 3. Systemic inflammatory response syndrome. 4. Renal mass suspicious for malignancy. 5. Anemia. PLAN: The patient remains stable. Cytology of the abdominal fluid revealed no malignancy. Continue antibiotics. Surgical/GI rec-s==> plan for repeat CT with rectal contrast [facility] staff Problems: Consultation Date/Type/Reason Admit Date/Time Apr 05, 2016 at 14:49 Initial Consult Date 04/09/16 Type of Consultation: ID Referring Provider: AIMEE PEREZ MD Exam/Review of Systems Vital Signs Vitals Vital Signs Date Time Temp Pulse Resp B/P Pulse Ox O2 Delivery O2 Flow Rate FiO2 04/18/16 08:20 98.4 74 20 129/75 95 04/17/16 09:25 Room Air Intake and Output 04/17/16 04/17/16 04/18/16 15:00 23:00 07:00 Intake Total 1550 ml 1780 ml Output Total 20 ml 1100 ml Balance 1530 ml 680 ml Results Result Diagram: 04/15/16 1610 04/15/16 1048 Results 24 hrs Laboratory Tests Test 04/18/16 10:53 Lab Scanned Report REFERENCE LAB Medications Medications Current Medications Dextrose/Sodium Chloride (D5-1/2ns) 1,000 ml @ 60 mls/hr [id number] IV Last administered on 04/18/16 10:37; Admin Dose 60 MLS/HR; Start 04/05/16 at 17:36 Ondansetron HCl (Zofran Inj) 4 mg Q6H PRN IV NAUSEA AND/OR VOMITING Last administered on 04/13/16 04:18; Admin Dose 4 MG; Start 04/05/16 at 18:00 Acetaminophen (Tylenol Tab) 650 mg Q6H PRN PO PAIN LEVEL 1-3 OR FEVER Last administered on 04/14/16 21:51; Admin Dose 650 MG; Start 04/05/16 at 18:00 Magnesium Hydroxide (Milk Of Mag) 30 ml DAILY PRN PO CONSTIPATION; Start at 18:00 Zolpidem Tartrate 5 mg 5 mg QHS PRN PO SLEEP Last administered on 04/14/16 01: 40; Admin Dose 5 MG; Start 04/05/16 at 18:00 Metronidazole (Flagyl 500 Mg (Pmx)) 100 ml @ 100 mls/hr Q8 IVPB Last administered on 04/18/16 05:30; Admin Dose 100 MLS/HR; Start 04/05/16 at 22:00 Morphine Sulfate 3 mg 3 mg Q3H PRN IV PAIN Last administered on 04/08/16 12:49 ; Admin Dose 3 MG; Start 04/05/16 at 21:00 Ceftriaxone Sodium (Rocephin) 50 ml @ 100 mls/hr Q24H IVPB Last administered on 04/17/16 20:16; Admin Dose 100 MLS/HR; Start 04/09/16 at 20:00 Phenol (Chloraseptic Throat [place]) 2 spray Q2H PRN MT SORE THROAT; Start at 14:30 Pantoprazole (Protonix Tab) 40 mg DAILY@06 PO Last administered on 04/18/16 05 :30; Admin Dose 40 MG; Start 04/11/16 at 17:30 Montelukast Sodium (Singulair) 20 mg DAILY PRN PO asthma Last administered on 09:43; Admin Dose 20 MG; Start 04/14/16 at 09:30 AVIVA PACKER NP Apr 18, 2016 13:03
--- NOTE | 2016-04-18 17:18 | PN ---
Date/Time of Note Date/Time of Note DATE: 04/18/16 TIME: 17:16 Assessment/Plan Lines/Catheters IV Catheter Type (from [facility]): Peripheral IV [facility] in Place (from [facility]): No Assessment/Plan Chief Complaint/Hosp Course 1. Abdominal pain with large fluid collection (13.6 x 8.2 x 7.6 cm), abscess. DDx of source: Perforated diverticulitis versus perforated appendicitis versus cystic tumor versus other. s/p IR percutaneous drain placed 04/06. +Cx. Negative cytology. Repeat CT noted. -Diet as tolerated -Antibiotics -Drain -Since collection is large, consider discharging patient with drain and abx and follow up as outpt 2. Hx of diverticulosis and diverticulitis -As above 3. BMI 37 -Nutrition optimization encouraged -Exercise encouraged 4. Leukocytosis and lactic acidosis with probable early sepsis secondary to above. Resolved -As above -Supportive measures 5. Left adrenal adenoma -Workup per endocrine and oncology appreciated > no further w/u per Oncology 6. 2.6 x 2.3 x 1.8 cm mass measuring 80 HU extending laterally at the junction of the mid and superior pole of the right kidney suspicious for neoplasm -Workup per urology and oncology appreciated > eventual partial nephrectomy after acute process resolves. 7. Hepatomegaly with hepatic cyst -Nutrition and weight optimization 8. Tremors -Medical management Thank you, Problems: Subjective [address] noted with smaller but still large collection. No fevers or chills. Still has abdominal pain but improving. No nausea vomiting. No chest pain or shortness of breath. No visual or neurologic changes. No dysuria. Bowel function. Exam/Review of Systems Vital Signs Vitals Vital Signs Date Time Temp Pulse Resp B/P Pulse Ox O2 Delivery O2 Flow Rate FiO2 04/18/16 08:20 98.4 74 20 129/75 95 04/17/16 09:25 Room Air Intake and Output 04/17/16 04/17/16 04/18/16 15:00 23:00 07:00 Intake Total 1550 ml 1780 ml Output Total 20 ml 1100 ml Balance 1530 ml 680 ml Exam Free Text/Dictation Constitutional: alert, obese, oriented, No distress Psych: anxiety Head: atraumatic, normocephalic Eyes: EOMI, PERRL, nl conjunctiva, No icteric ENMT: nl external ears & nose, nl lips & teeth, No mucosa pink and moist Neck: non-tender, supple Respiratory: normal air movement, No congested cough, No labored breathing Cardiovascular: No edema, No regular rate and rhythm Gastrointestinal: distended, tender, No rebound or guarding. Left sided drain. Musculoskeletal: nl extremities to inspection, No joint tenderness Extremities: normal pulses, No calf tenderness, No cyanosis Neurological: nl mental status, nl speech, nl strength. Tremors Skin: nl turgor, No diaphoresis, No rash or lesions Lymph: nl lymph nodes, nontender Results Result Diagram: 04/15/16 1610 04/15/16 1048 Results Last [address]: Slight interval decrease in size of complex left pelvic fluid collection following drain placement. Coarse calcifications are again seen within the collection.. Stranding of the subcutaneous soft tissues of the left flank. Left adrenal adenoma. 2 cm enhancing right renal lesion again seen, consistent with renal cell carcinoma until proven otherwise. FLORIAN TABOR MD Apr 18, 2016 17:18
--- NOTE | 2016-04-18 17:47 | CONS ---
Date/Time of Note Date/Time of Note DATE: 04/18/16 TIME: 17:47 Assessment/Plan Assessment/Plan Additional Assessment/Plan Additional Assessment/Plan IMPRESSION: 1. Pelvic abscess, status post drainage done by IR.still significant drainage 2. History of diverticulitis. 3. High CEA. 4. Renal mass suspicious for malignancy. 5. Adrenal mass, which is benign. 6. Obesity. 7. Tremor. Plan continue antibiotics, still has significant drainage will repeat CT with rectal contrast tomorrow,drainage is minimal Consultation Date/Type/Reason Admit Date/Time Apr 05, 2016 at 14:49 Initial Consult Date 04/09/16 Type of Consultation: ID Referring Provider: AIMEE PEREZ MD 24 HR Interval Summary Constitutional: no complaints Exam/Review of Systems Vital Signs Vitals Vital Signs Date Time Temp Pulse Resp B/P Pulse Ox O2 Delivery O2 Flow Rate FiO2 04/18/16 08:20 98.4 74 20 129/75 95 04/17/16 09:25 Room Air Intake and Output 04/17/16 04/17/16 04/18/16 15:00 23:00 07:00 Intake Total 1550 ml 1780 ml Output Total 20 ml 1100 ml Balance 1530 ml 680 ml Exam Constitutional: alert, oriented, well developed Psych: nl mood/affect, no complaints Head: atraumatic, normocephalic Eyes: EOMI, PERRL, nl conjunctiva, nl lids, nl sclera ENMT: nl external ears & nose, nl lips & teeth, nl nasal mucosa & septum Neck: non-tender, supple Respiratory: clear to auscultation, normal air movement Cardiovascular: nl pulses, regular rate and rhythm Gastrointestinal: nl liver, spleen, non-tender, soft Musculoskeletal: nl extremities to inspection, nl gait and stance Extremities: normal pulses Neurological: CRANE FOLLOWER II-XII intact, nl mental status, nl speech, nl strength Skin: nl turgor, No rash or lesions Lymph: nl lymph nodes Results Result Diagram: 04/15/16 1610 04/15/16 1048 Results 24 hrs Laboratory Tests Test 04/18/16 10:53 Lab Scanned Report REFERENCE LAB Medications Medications Current Medications Dextrose/Sodium Chloride (D5-1/2ns) 1,000 ml @ 60 mls/hr [id number] IV Last administered on 04/18/16t 10:37; Admin Dose 60 MLS/HR; Start 04/05/16 at 17:36 Ondansetron HCl (Zofran Inj) 4 mg Q6H PRN IV NAUSEA AND/OR VOMITING Last administered on 04/13/16 04:18; Admin Dose 4 MG; Start 04/05/16 at 18:00 Acetaminophen (Tylenol Tab) 650 mg Q6H PRN PO PAIN LEVEL 1-3 OR FEVER Last administered on 04/14/16 21:51; Admin Dose 650 MG; Start 04/05/16 at 18:00 Magnesium Hydroxide (Milk Of Mag) 30 ml DAILY PRN PO CONSTIPATION; Start at 18:00 Zolpidem Tartrate 5 mg 5 mg QHS PRN PO SLEEP Last administered on 04/14/16 01: 40; Admin Dose 5 MG; Start 04/05/16 at 18:00 Metronidazole (Flagyl 500 Mg (Pmx)) 100 ml @ 100 mls/hr Q8 IVPB Last administered on 04/18/16 13:53; Admin Dose 100 MLS/HR; Start 04/05/16 at 22:00 Morphine Sulfate 3 mg 3 mg Q3H PRN IV PAIN Last administered on 04/08/16 12:49 ; Admin Dose 3 MG; Start 04/05/16 at 21:00 Ceftriaxone Sodium (Rocephin) 50 ml @ 100 mls/hr Q24H IVPB Last administered on 04/17/16 20:16; Admin Dose 100 MLS/HR; Start 04/09/16 at 20:00 Phenol (Chloraseptic Throat [place]) 2 spray Q2H PRN MT SORE THROAT; Start at 14:30 Pantoprazole (Protonix Tab) 40 mg DAILY@06 PO Last administered on 04/18/16 05 :30; Admin Dose 40 MG; Start 04/11/16 at 17:30 Montelukast Sodium (Singulair) 20 mg DAILY PRN PO asthma Last administered on 09:43; Admin Dose 20 MG; Start 04/14/16 at 09:30 MARISELA HELM MD Apr 18, 2016 17:47
[2016-04-18] MEDS ORDERED: BARIUM SULF 2% 450 ML BTL (BERRY SMOOTHIE) PO ONE (18:00)
[2016-04-18 19:50] VITALS: BP 152/72; RESP 21
[2016-04-18 20:00] VITALS: BP 152/72; PULSE 71; RESP 21
[2016-04-18] MEDS: CEFTRIAXONE 2 GM/50 ML (PMX) 50 ML IVPB SCH (20:46)
[2016-04-19] MEDS: DEXTROSE 5%-0.45% NACL 1,000 ML IV SCH ×2 (03:02→14:56)
[2016-04-19] MEDS: PANTOPRAZOLE (EC) 40 MG TAB PO SCH (06:00)
[2016-04-19] MEDS: metroNIDAZOLE 500 MG/NS (PMX) 100 ML IVPB SCH ×3 (06:30→22:09)
[2016-04-19 08:16] VITALS: BP 132/58; RESP 16
--- NOTE | 2016-04-19 10:05 | CONS ---
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 I.e. this is a benign adrenal mass and does not need further attention outside of her repeat CT scan in one year. There is however other issues more pressing in this patient which will eventually need at least one surgical procedure. 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, left Consultation Date/Type/Reason Admit Date/Time Apr 05, 2016 at 14:49 Initial Consult Date 04/12/16 Type of Consultation: Endocrinology Reason for Consultation Adrenal mass Referring Provider: AIMEE PEREZ MD Exam/Review of Systems Vital Signs Vitals Vital Signs Date Time Temp Pulse Resp B/P Pulse Ox O2 Delivery O2 Flow Rate FiO2 04/19/16 08:16 98.4 67 16 132/58 96 04/18/16 20:00 Room Air Intake and Output 04/18/16 04/18/16 04/19/16 15:00 23:00 07:00 Intake Total 730 ml 750 ml 1840 ml Output Total 955 ml Balance 730 ml -205 ml 1840 ml Results Result Diagram: 04/15/16 1610 04/15/16 1048 Results 24 hrs Laboratory Tests Test 04/18/16 10:53 Lab Scanned Report REFERENCE LAB Medications Medications Current Medications Dextrose/Sodium Chloride (D5-1/2ns) 1,000 ml @ 60 mls/hr [id number] IV Last administered on 04/19/16 03:02; Admin Dose 60 MLS/HR; Start 04/05/16 at 17:36 Ondansetron HCl (Zofran Inj) 4 mg Q6H PRN IV NAUSEA AND/OR VOMITING Last administered on 04/13/16 04:18; Admin Dose 4 MG; Start 04/05/16 at 18:00 Acetaminophen (Tylenol Tab) 650 mg Q6H PRN PO PAIN LEVEL 1-3 OR FEVER Last administered on 04/14/16 21:51; Admin Dose 650 MG; Start 04/05/16 at 18:00 Magnesium Hydroxide (Milk Of Mag) 30 ml DAILY PRN PO CONSTIPATION; Start at 18:00 Zolpidem Tartrate 5 mg 5 mg QHS PRN PO SLEEP Last administered on 04/14/16 01: 40; Admin Dose 5 MG; Start 04/05/16 at 18:00 Metronidazole (Flagyl 500 Mg (Pmx)) 100 ml @ 100 mls/hr Q8 IVPB Last administered on 04/19/16 06:30; Admin Dose 100 MLS/HR; Start 04/05/16 at 22:00 Morphine Sulfate 3 mg 3 mg Q3H PRN IV PAIN Last administered on 04/08/16 12:49 ; Admin Dose 3 MG; Start 04/05/16 at 21:00 Ceftriaxone Sodium (Rocephin) 50 ml @ 100 mls/hr Q24H IVPB Last administered on 04/18/16 20:46; Admin Dose 100 MLS/HR; Start 04/09/16 at 20:00 Phenol (Chloraseptic Throat [place]) 2 spray Q2H PRN MT SORE THROAT; Start at 14:30 Pantoprazole (Protonix Tab) 40 mg DAILY@06 PO Last administered on 04/18/16 05 :30; Admin Dose 40 MG; Start 04/11/16 at 17:30 Montelukast Sodium (Singulair) 20 mg DAILY PRN PO asthma Last administered on 09:43; Admin Dose 20 MG; Start 04/14/16 at 09:30 QIAN WARNER MD Apr 19, 2016 10:05
[2016-04-19] MEDS ORDERED: IOHEXOL 300MG/ML 150 ML BTL ONE (10:06)
[2016-04-19] MEDS ORDERED: SOD CHLORIDE 0.9% 100 ML ONE (10:06)
--- NOTE | 2016-04-19 11:30 | CONS ---
Date/Time of Note Date/Time of Note DATE: 04/19/16 TIME: 11:29 Assessment/Plan Assessment/Plan Chief Complaint/Hosp Course SUBJECTIVE: No acute changes. The patient is lying comfortably in bed, alert, feels good, no fevers, nad MICROBIOLOGY: Abdominal drainage growing E. coli, strep and Bacteroides fragilis. Blood cultures have been negative. ANTIMICROBIALS: The patient is on: 1. Rocephin. 2. Flagyl. ALLERGIES: PENICILLIN. PHYSICAL EXAMINATION: GENERAL: This is a morbidly obese elderly woman who is in no distress. HEENT: Head atraumatic, normocephalic. Sclerae anicteric. Buccal mucosa dry. NECK: Supple. Trachea midline. CHEST: Rise symmetrical. Breath sounds clear. HEART: S1, S2. ABDOMEN: Soft. Bowel tones present. EXTREMITIES: Without cyanosis. SKIN: Without cyanosis. The patient has left-sided intra-abdominal drainage catheter. ASSESSMENT: 1. S/p abdominal pain with large fluid collection, status post CT-guided drainage with placement of catheter and fluid culture growing Escherichia coli, streptococcus and Bacteroides fragilis, covered with Flagyl, Rocephin. 2. Morbid obesity. 3. Systemic inflammatory response syndrome. 4. Renal mass suspicious for malignancy. 5. Anemia. PLAN: The patient remains stable. Cytology of the abdominal fluid revealed no malignancy. Continue antibiotics. Pending CT with rectal contrast DW staff DW daughter at bedside Problems: Consultation Date/Type/Reason Admit Date/Time Apr 05, 2016 at 14:49 Initial Consult Date 04/09/16 Type of Consultation: id Referring Provider: AIMEE PEREZ MD Exam/Review of Systems Vital Signs Vitals Vital Signs Date Time Temp Pulse Resp B/P Pulse Ox O2 Delivery O2 Flow Rate FiO2 04/19/16 08:16 98.4 67 16 132/58 96 04/18/16 20:00 Room Air Intake and Output 04/18/16 04/18/16 04/19/16 15:00 23:00 07:00 Intake Total 730 ml 750 ml 1840 ml Output Total 955 ml Balance 730 ml -205 ml 1840 ml Results Result Diagram: 04/15/16 1610 04/15/16 1048 Medications Medications Current Medications Dextrose/Sodium Chloride (D5-1/2ns) 1,000 ml @ 60 mls/hr [id number] IV Last administered on 04/19/16 03:02; Admin Dose 60 MLS/HR; Start 04/05/16 at 17:36 Ondansetron HCl (Zofran Inj) 4 mg Q6H PRN IV NAUSEA AND/OR VOMITING Last administered on 04/13/16 04:18; Admin Dose 4 MG; Start 04/05/16 at 18:00 Acetaminophen (Tylenol Tab) 650 mg Q6H PRN PO PAIN LEVEL 1-3 OR FEVER Last administered on 04/14/16 21:51; Admin Dose 650 MG; Start 04/05/16 at 18:00 Magnesium Hydroxide (Milk Of Mag) 30 ml DAILY PRN PO CONSTIPATION; Start at 18:00 Zolpidem Tartrate 5 mg 5 mg QHS PRN PO SLEEP Last administered on 04/14/16 01: 40; Admin Dose 5 MG; Start 04/05/16 at 18:00 Metronidazole (Flagyl 500 Mg (Pmx)) 100 ml @ 100 mls/hr Q8 IVPB Last administered on 04/19/16 06:30; Admin Dose 100 MLS/HR; Start 04/05/16 at 22:00 Morphine Sulfate 3 mg 3 mg Q3H PRN IV PAIN Last administered on 04/08/16 12:49 ; Admin Dose 3 MG; Start 04/05/16 at 21:00 Ceftriaxone Sodium (Rocephin) 50 ml @ 100 mls/hr Q24H IVPB Last administered on 04/18/16 20:46; Admin Dose 100 MLS/HR; Start 04/09/16 at 20:00 Phenol (Chloraseptic Throat [place]) 2 spray Q2H PRN MT SORE THROAT; Start at 14:30 Pantoprazole (Protonix Tab) 40 mg DAILY@06 PO Last administered on 04/18/16 05 :30; Admin Dose 40 MG; Start 04/11/16 at 17:30 Montelukast Sodium (Singulair) 20 mg DAILY PRN PO asthma Last administered on 09:43; Admin Dose 20 MG; Start 04/14/16 at 09:30 AVIVA PACKER NP Apr 19, 2016 11:30
--- NOTE | 2016-04-19 15:18 | PN ---
Date/Time of Note Date/Time of Note DATE: 04/19/16 TIME: 15:16 Assessment/Plan VTE Prophylaxis VTE Prophylaxis Intervention: other Lines/Catheters IV C[facility]ter Type (from [facility]): Peripheral IV Urinary Cath still in place: No Assessment/Plan Chief Complaint/Hosp Course IMPRESSION: 1. The patient has abd mass. 2. Possible diverticulitis. 3. Rule out abscess. 4. History of diverticulitis. 5 S/P CT GUIDED DRAINAGE 6 adrenal mass observe for now 7 pelvic and renal mass 8 elevated cea PLAN ANTIBIOTIC PER SURGERY home soon antibiotic for now dr akshat martinez decide dc planning Problems: Subjective 24 Hr Interval Summary Eyes: no complaints ENT: no complaints Exam/Review of Systems Vital Signs Vitals Vital Signs Date Time Temp Pulse Resp B/P Pulse Ox O2 Delivery O2 Flow Rate FiO2 04/19/16 08:16 98.4 67 16 132/58 96 04/18/16 20:00 Room Air Intake and Output 04/18/16 04/18/16 04/19/16 15:00 23:00 07:00 Intake Total 730 ml 750 ml 1840 ml Output Total 955 ml Balance 730 ml -205 ml 1840 ml Exam Respiratory: clear to auscultation Cardiovascular: regular rate and rhythm Gastrointestinal: soft Genitourinary - Female: nl external genitalia Musculoskeletal: nl extremities to inspection Extremities: normal pulses Results Result Diagram: 04/15/16 1610 04/15/16 1048 Medications Medications Current Medications Dextrose/Sodium Chloride (D5-1/2ns) 1,000 ml @ 60 mls/hr [id number] IV Last administered on 04/19/16 03:02; Admin Dose 60 MLS/HR; Start 04/05/16 at 17:36 Ondansetron HCl (Zofran Inj) 4 mg Q6H PRN IV NAUSEA AND/OR VOMITING Last administered on 04/13/16 04:18; Admin Dose 4 MG; Start 04/05/16 at 18:00 Acetaminophen (Tylenol Tab) 650 mg Q6H PRN PO PAIN LEVEL 1-3 OR FEVER Last administered on 04/14/16 21:51; Admin Dose 650 MG; Start 04/05/16 at 18:00 Magnesium Hydroxide (Milk Of Mag) 30 ml DAILY PRN PO CONSTIPATION; Start at 18:00 Zolpidem Tartrate 5 mg 5 mg QHS PRN PO SLEEP Last administered on 04/14/16 01: 40; Admin Dose 5 MG; Start 04/05/16 at 18:00 Metronidazole (Flagyl 500 Mg (Pmx)) 100 ml @ 100 mls/hr Q8 IVPB Last administered on 04/19/16 13:09; Admin Dose 100 MLS/HR; Start 04/05/16 at 22:00 Morphine Sulfate 3 mg 3 mg Q3H PRN IV PAIN Last administered on 04/08/16 12:49 ; Admin Dose 3 MG; Start 04/05/16 at 21:00 Ceftriaxone Sodium (Rocephin) 50 ml @ 100 mls/hr Q24H IVPB Last administered on 04/18/16 20:46; Admin Dose 100 MLS/HR; Start 04/09/16 at 20:00 Phenol (Chloraseptic Throat [place]) 2 spray Q2H PRN MT SORE THROAT; Start at 14:30 Pantoprazole (Protonix Tab) 40 mg DAILY@06 PO Last administered on 04/18/16 05 :30; Admin Dose 40 MG; Start 04/11/16 at 17:30 Montelukast Sodium (Singulair) 20 mg DAILY PRN PO asthma Last administered on 09:43; Admin Dose 20 MG; Start 04/14/16 at 09:30 AIMEE PEREZ MD Apr 19, 2016 15:17
--- NOTE | 2016-04-19 17:05 | RADRPT ---
PROCEDURE: CT abdomen and pelvis with contrast. CLINICAL INDICATION: Pelvic abscess. Clinically suspected fistula TECHNIQUE: CT scan of the abdomen and pelvis with contrast was performed. Coronal and sagittal im ages were also reformatted. 100 cc Omnipaque-300 intravenous contrast was administered without comp lication. In addition, approximately 500 ml rectal contrast media is administered. Total exam CTDIvo l = 20.52 mGy and DLP = 1228.65 mGy-cm. COMPARISON: CT 04/16/2016 FINDINGS: Visualized lower thorax: Trace subsegmental atelectasis of the right greater than left lung base is demonstrated. There is no evidence for pleural effusion. Liver, gallbladder, pancreas and spleen: Normal hepatic contour, attenuation in size. Subtle small hemangiomata in the right hepatic dome are present, the largest approximately 8 mm. There is no deng spicious hepatic mass or ductal dilatation. Gallbladder hydrops is again noted without evidence of cholecystitis. No common bile duct dilatation is evident. The pancreas is normal. The spleen is n ormal, not enlarged. Adrenal glands and genitourinary system: Medial limb left adrenal gland adenoma of approximately 1. 2 x 1.2 cm is again seen (series 3 image 47). The right adrenal gland is unremarkable. Within the a nterior interpolar aspect of the right kidney is a solid ovoid interrenal mass estimated at 2.3 x 2. 1 cm causing a bulge in the contour (series 3 image 59) and concerning for renal cell carcinoma unti l proven otherwise. There is no evidence of hydronephrosis. The left kidney is unremarkable. The ureters are unremarkable. The urinary bladder shows no abnormality. Hysterectomy changes are again noted. Gastrointestinal system: A [id number] hiatal hernia is again noted, the gastric antrum is be low the diaphragm and the stomach is otherwise unremarkable There is no evidence of obstruction, il eus or inflammation. The appendix is not visualized, rectal contrast media has reached the distal i leum. There is diverticular disease particularly of the descending and sigmoid colon which abuts the acute inflammatory collection of the lower abdomen and left pelvis however, there is no evidence of contrast extravasation into the collection to suggest fistulization. A percutaneous pigtail cathet er is again seen within the minor cephalad and left lateral aspect of the complex collection which c ontains multiple scattered coarse calcifications. The volume of the collection appears to have incr eased compared to the prior study of 04/16/2016 now estimated at 408 cc, previously 314 cc. Strandi ng of the fat surrounding the collection in the left lower quadrant is again noted. There is no evidence of communication with the urinary bladder. Peritoneum, retroperitoneum, vessels and lymph nodes: The abdominal aorta is normal in caliber. Th ere is no evidence for atherosclerotic calcification. Inferior vena cava is normal in caliber. The re is no evidence for adenopathy. The peritoneal cavity is normal with no evidence for ascites. Osseous structures and musculoskeletal system: There is no evidence for acute osseous abnormality o r muscular pathology. No subcutaneous abnormalities are present. RPTAT:HJJR IMPRESSION: 1. No evidence of fistulization between the contrast opacified colon and the drainage catheter cont aining inflammatory collection in the left lower quadrant, no extravasation of rectal contrast media is present. 2. Diverticular disease of the colon which abuts the collection is noted. 3. Slight interval increase in volume of the suspected left lower quadrant abscess as compared to t he prior CT of 04/16/2016 from an estimated 314 cc to recurrent approximation of 408 cc. Gas and co arse calcifications within the collection are again noted. 4. Solid interpolar right renal mass measuring 2.3 x 2.1 cm is concerning for renal cell carcinoma until proven otherwise. 5. Moderate to large hiatal hernia. 6. Approximately 1.2 x 1.2 cm left adrenal gland adenoma. 7. Changes of prior hysterectomy. Physician Gabriel Date Time Electronically viewed and signed by Physician Gabriel on 04/19/2016 17:04 JR/
--- NOTE | 2016-04-19 17:49 | CONS ---
Date/Time of Note Date/Time of Note DATE: 04/19/16 TIME: 17:47 Assessment/Plan Assessment/Plan Additional Assessment/Plan Additional Assessment/Plan IMPRESSION: 1. Pelvic abscess, status post drainage done by IR.still significant drainage, 2. History of diverticulitis. 3. High CEA. 4. Renal mass suspicious for malignancy. 5. Adrenal mass, which is benign. 6. Obesity. 7. Tremor. Plan continue antibiotics, still has significant drainage will repeat CT with rectal contrast tomorrow,no communication ,still large collection continue drain and antibiotics Consultation Date/Type/Reason Admit Date/Time Apr 05, 2016 at 14:49 Initial Consult Date 04/09/16 Type of Consultation: id Referring Provider: AIMEE PEREZ MD 24 HR Interval Summary Constitutional: no complaints Exam/Review of Systems Vital Signs Vitals Vital Signs Date Time Temp Pulse Resp B/P Pulse Ox O2 Delivery O2 Flow Rate FiO2 04/19/16 08:16 98.4 67 16 132/58 96 04/18/16 20:00 Room Air Intake and Output 04/18/16 04/18/16 04/19/16 15:00 23:00 07:00 Intake Total 730 ml 750 ml 1840 ml Output Total 955 ml Balance 730 ml -205 ml 1840 ml Exam Constitutional: alert, oriented, well developed Psych: nl mood/affect, no complaints Head: atraumatic, normocephalic Eyes: EOMI, PERRL, nl conjunctiva, nl lids, nl sclera ENMT: nl external ears & nose, nl lips & teeth, nl nasal mucosa & septum Neck: non-tender, supple Respiratory: clear to auscultation, normal air movement Cardiovascular: nl pulses, regular rate and rhythm Gastrointestinal: nl liver, spleen, non-tender, soft Musculoskeletal: nl extremities to inspection, nl gait and stance Extremities: normal pulses Neurological: SEDIMENTATIONIST II-XII intact, nl mental status, nl speech, nl strength Skin: nl turgor, No rash or lesions Lymph: nl lymph nodes Results Result Diagram: 04/15/16 1610 04/15/16 1048 Medications Medications Current Medications Dextrose/Sodium Chloride (D5-1/2ns) 1,000 ml @ 60 mls/hr [id number] IV Last administered on 04/19/16t 03:02; Admin Dose 60 MLS/HR; Start 04/05/16 at 17:36 Ondansetron HCl (Zofran Inj) 4 mg Q6H PRN IV NAUSEA AND/OR VOMITING Last administered on 04/13/16 04:18; Admin Dose 4 MG; Start 04/05/16 at 18:00 Acetaminophen (Tylenol Tab) 650 mg Q6H PRN PO PAIN LEVEL 1-3 OR FEVER Last administered on 04/14/16 21:51; Admin Dose 650 MG; Start 04/05/16 at 18:00 Magnesium Hydroxide (Milk Of Mag) 30 ml DAILY PRN PO CONSTIPATION; Start at 18:00 Zolpidem Tartrate 5 mg 5 mg QHS PRN PO SLEEP Last administered on 04/14/16 01: 40; Admin Dose 5 MG; Start 04/05/16 at 18:00 Metronidazole (Flagyl 500 Mg (Pmx)) 100 ml @ 100 mls/hr Q8 IVPB Last administered on 04/19/16 13:09; Admin Dose 100 MLS/HR; Start 04/05/16 at 22:00 Morphine Sulfate 3 mg 3 mg Q3H PRN IV PAIN Last administered on 04/08/16 12:49 ; Admin Dose 3 MG; Start 04/05/16 at 21:00 Ceftriaxone Sodium (Rocephin) 50 ml @ 100 mls/hr Q24H IVPB Last administered on 04/18/16 20:46; Admin Dose 100 MLS/HR; Start 04/09/16 at 20:00 Phenol (Chloraseptic Throat [place]) 2 spray Q2H PRN MT SORE THROAT; Start at 14:30 Pantoprazole (Protonix Tab) 40 mg DAILY@06 PO Last administered on 04/18/16 05 :30; Admin Dose 40 MG; Start 04/11/16 at 17:30 Montelukast Sodium (Singulair) 20 mg DAILY PRN PO asthma Last administered on 09:43; Admin Dose 20 MG; Start 04/14/16 at 09:30 MARISELA HELM MD Apr 19, 2016 17:49
[2016-04-19 20:09] VITALS: BP 128/62; RESP 18
[2016-04-19] MEDS: CEFTRIAXONE 2 GM/50 ML (PMX) 50 ML IVPB SCH (21:10)
[2016-04-19] MEDS: NYSTATIN 30 GM POWDER BTL TOP SCH (21:12)
[2016-04-19] MEDS: ACETAMINOPHEN 325 MG TAB PO PRN (22:13)
[2016-04-20] MEDS: metroNIDAZOLE 500 MG/NS (PMX) 100 ML IVPB SCH ×2 (06:16→15:04)
[2016-04-20] MEDS: PANTOPRAZOLE (EC) 40 MG TAB PO SCH (06:16)
[2016-04-20] MEDS: DEXTROSE 5%-0.45% NACL 1,000 ML IV SCH (06:20)
[2016-04-20 07:34] VITALS: BP 141/62; RESP 18
[2016-04-20] MEDS: NYSTATIN 30 GM POWDER BTL TOP SCH (09:01)
--- NOTE | 2016-04-20 13:09 | PDOCDIS ---
Discharge Instructions CONDITION Patient Condition: Stable HOME CARE INSTRUCTIONS: Special Diet: clear liquid ACTIVITY: Activity Restrictions: Slowly Increase Activity FOLLOW UP/APPOINTMENTS Appointments f/u own pcp [address] cheema 2 wks/or o urologist see dr smith [address] sally cárdenas [address] dickerson [address] agarwal [address] grace 2 wks arrange home health AIMEE PEREZ MD Apr 20, 2016 13:09
[2016-04-20] MEDS ORDERED: ACET325T33 PO (13:11)
[2016-04-20] MEDS ORDERED: METR500T PO (13:11)
[2016-04-20] MEDS ORDERED: PANT40TA4 PO (13:11)
--- NOTE | 2016-04-20 13:29 | CONS ---
Date/Time of Note Date/Time of Note DATE: 04/20/16 TIME: 13:27 Assessment/Plan Assessment/Plan Chief Complaint/Hosp Course 60 yo female with 1.2 6. 2.6 x 2.3 x 1.8 cm mass measuring 80 HU extending laterally at the junction of the mid and superior pole of the right kidney suspicious for neoplasm -This is highly suspicious for a primary kidney cancer -This will need to be removed by urology by either partial or complete nephrectomy. appreciate Dr. Noland's recommendations -will place case management consult for patient to be seen at [facility] as an out patient 2. L Adrenal Adenoma -I have reviewed the addendum which now states the adenoma has a Hounsfield unit of 51 which is more concerning for occult malignancy. -appreciate endocrinology recs. f/u 24 hour urinary free cortisol, plasma aldosterone concentration to plasma renin activity,and plasma metanephrine. -agree that if > 4cm should excise but for now this can be followed with serial CT scans if above labs are negative 3. Abdominal Fluid collection, s/p CT guided drainage. cytology negative for malignancy -will f/u cultures -continue IV antibiotics Approximately 40 min were spent at patient's bedside and in coordination of her care Problems: Consultation Date/Type/Reason Admit Date/Time Apr 05, 2016 at 14:49 Initial Consult Date 04/09/16 Type of Consultation: Hematology Reason for Consultation kidney mass Referring Provider: AIMEE PEREZ MD 24 HR Interval Summary Free Text/Dictation no acute overnight events. Exam/Review of Systems Vital Signs Vitals Vital Signs Date Time Temp Pulse Resp B/P Pulse Ox O2 Delivery O2 Flow Rate FiO2 04/20/16 07:34 98.3 66 18 141/62 94 04/18/16 20:00 Room Air Intake and Output 04/19/16 04/19/16 04/20/16 15:00 23:00 07:00 Intake Total 200 ml 1510 ml 740 ml Output Total 20 ml 700 ml 5 ml Balance 180 ml 810 ml 735 ml Exam Constitutional: alert, oriented Psych: nl mood/affect, no complaints Head: normocephalic Eyes: nl conjunctiva ENMT: nl external ears & nose Neck: non-tender, supple Respiratory: clear to auscultation Cardiovascular: nl pulses, regular rate and rhythm Gastrointestinal: other (drain in place), soft Musculoskeletal: nl extremities to inspection Medications Medications Current Medications Dextrose/Sodium Chloride (D5-1/2ns) 1,000 ml @ 60 mls/hr [id number] IV Last administered on 04/20/16 06:20; Admin Dose 60 MLS/HR; Start 04/05/16 at 17:36 Ondansetron HCl (Zofran Inj) 4 mg Q6H PRN IV NAUSEA AND/OR VOMITING Last administered on 04/13/16 04:18; Admin Dose 4 MG; Start 04/05/16 at 18:00 Acetaminophen (Tylenol Tab) 650 mg Q6H PRN PO PAIN LEVEL 1-3 OR FEVER Last administered on 04/19/16 22:13; Admin Dose 650 MG; Start 04/05/16 at 18:00 Magnesium Hydroxide (Milk Of Mag) 30 ml DAILY PRN PO CONSTIPATION; Start at 18:00 Zolpidem Tartrate 5 mg 5 mg QHS PRN PO SLEEP Last administered on 04/14/16 01: 40; Admin Dose 5 MG; Start 04/05/16 at 18:00 Metronidazole (Flagyl 500 Mg (Pmx)) 100 ml @ 100 mls/hr Q8 IVPB Last administered on 04/20/16 06:16; Admin Dose 100 MLS/HR; Start 04/05/16 at 22:00 Morphine Sulfate 3 mg 3 mg Q3H PRN IV PAIN Last administered on 04/08/16 12:49 ; Admin Dose 3 MG; Start 04/05/16 at 21:00 Ceftriaxone Sodium (Rocephin) 50 ml @ 100 mls/hr Q24H IVPB Last administered on 04/19/16 21:10; Admin Dose 100 MLS/HR; Start 04/09/16 at 20:00 Phenol (Chloraseptic Throat [place]) 2 spray Q2H PRN MT SORE THROAT; Start at 14:30 Pantoprazole (Protonix Tab) 40 mg DAILY@06 PO Last administered on 04/20/16 06 :16; Admin Dose 40 MG; Start 04/11/16 at 17:30 Montelukast Sodium (Singulair) 20 mg DAILY PRN PO asthma Last administered on 09:43; Admin Dose 20 MG; Start 2/11/17 at 09:30 Nystatin (Nystatin Powder) 1 applic BID TOP Last administered on 04/20/16t 09: 01; Admin Dose 1 APPLIC; Start 04/19/16 at 21:00 JENNI PARKER M.D. Apr 20, 2016 13:29
--- NOTE | 2016-04-20 13:47 | CONS ---
Date/Time of Note Date/Time of Note DATE: 04/20/16 TIME: 13:45 Assessment/Plan Assessment/Plan Chief Complaint/Hosp Course SUBJECTIVE: No acute changes. The patient is lying comfortably in bed, alert, feels good, no fevers, nad MICROBIOLOGY: Abdominal drainage growing E. coli, strep and Bacteroides fragilis. Blood cultures have been negative. ANTIMICROBIALS: The patient is on: 1. Rocephin. 2. Flagyl. ALLERGIES: PENICILLIN. PHYSICAL EXAMINATION: GENERAL: This is a morbidly obese elderly woman who is in no distress. HEENT: Head atraumatic, normocephalic. Sclerae anicteric. Buccal mucosa dry. NECK: Supple. Trachea midline. CHEST: Rise symmetrical. Breath sounds clear. HEART: S1, S2. ABDOMEN: Soft. Bowel tones present. EXTREMITIES: Without cyanosis. SKIN: Without cyanosis. The patient has left-sided intra-abdominal drainage catheter. ASSESSMENT: 1. S/p abdominal pain with large fluid collection, status post CT-guided drainage with placement of catheter and fluid culture growing Escherichia coli, streptococcus and Bacteroides fragilis, covered with Flagyl, Rocephin. 2. Morbid obesity. 3. Systemic inflammatory response syndrome. 4. Renal mass suspicious for malignancy. 5. Anemia. PLAN: The patient remains stable. Cytology of the abdominal fluid revealed no malignancy. CT abdomen noted, will need fci IV abx==> 3-4 weeks, repeat CT in couple weeks and f/u surgery prior discontinuation abx, will order PICC DW staff DW patient DW Dr Hutchins and Dr Perez Problems: Consultation Date/Type/Reason Admit Date/Time Apr 05, 2016 at 14:49 Initial Consult Date 04/09/16 Type of Consultation: ID Referring Provider: AIMEE PEREZ MD Exam/Review of Systems Vital Signs Vitals Vital Signs Date Time Temp Pulse Resp B/P Pulse Ox O2 Delivery O2 Flow Rate FiO2 04/20/16 07:34 98.3 66 18 141/62 94 04/18/16 20:00 Room Air Intake and Output 04/19/16 04/19/16 04/20/16 15:00 23:00 07:00 Intake Total 200 ml 1510 ml 740 ml Output Total 20 ml 700 ml 5 ml Balance 180 ml 810 ml 735 ml Medications Medications Current Medications Dextrose/Sodium Chloride (D5-1/2ns) 1,000 ml @ 60 mls/hr [id number] IV Last administered on 04/20/16 06:20; Admin Dose 60 MLS/HR; Start 04/05/16 at 17:36 Ondansetron HCl (Zofran Inj) 4 mg Q6H PRN IV NAUSEA AND/OR VOMITING Last administered on 04/13/16 04:18; Admin Dose 4 MG; Start 04/05/16 at 18:00 Acetaminophen (Tylenol Tab) 650 mg Q6H PRN PO PAIN LEVEL 1-3 OR FEVER Last administered on 04/19/16 22:13; Admin Dose 650 MG; Start 04/05/16 at 18:00 Magnesium Hydroxide (Milk Of Mag) 30 ml DAILY PRN PO CONSTIPATION; Start at 18:00 Zolpidem Tartrate 5 mg 5 mg QHS PRN PO SLEEP Last administered on 04/14/16 01: 40; Admin Dose 5 MG; Start 04/05/16 at 18:00 Metronidazole (Flagyl 500 Mg (Pmx)) 100 ml @ 100 mls/hr Q8 IVPB Last administered on 04/20/16 06:16; Admin Dose 100 MLS/HR; Start 04/05/16 at 22:00 Morphine Sulfate 3 mg 3 mg Q3H PRN IV PAIN Last administered on 04/08/16 12:49 ; Admin Dose 3 MG; Start 04/05/16 at 21:00 Ceftriaxone Sodium (Rocephin) 50 ml @ 100 mls/hr Q24H IVPB Last administered on 04/19/16 21:10; Admin Dose 100 MLS/HR; Start 04/09/16 at 20:00 Phenol (Chloraseptic Throat [place]) 2 spray Q2H PRN MT SORE THROAT; Start at 14:30 Pantoprazole (Protonix Tab) 40 mg DAILY@06 PO Last administered on 04/20/16 06 :16; Admin Dose 40 MG; Start 04/11/16 at 17:30 Montelukast Sodium (Singulair) 20 mg DAILY PRN PO asthma Last administered on 09:43; Admin Dose 20 MG; Start 04/14/16 at 09:30 Nystatin (Nystatin Powder) 1 applic BID TOP Last administered on 04/20/16 09: 01; Admin Dose 1 APPLIC; Start 04/19/16 at 21:00 AVIVA PACKER NP Apr 20, 2016 13:46
--- NOTE | 2016-04-20 14:11 | PN ---
Date/Time of Note Date/Time of Note DATE: 04/20/16 TIME: 14:10 Assessment/Plan VTE Prophylaxis VTE Prophylaxis Intervention: other Lines/Catheters IV [facility] Saline Lock Urinary Cath still in place: No Assessment/Plan Chief Complaint/Hosp Course IMPRESSION: 1. The patient has abd mass. 2. Possible diverticulitis. 3. Rule out abscess. 4. History of diverticulitis. 5 S/P CT GUIDED DRAINAGE 6 adrenal mass observe for now 7 pelvic and renal mass 8 elevated cea PLAN ANTIBIOTIC PER SURGERY HOME OK home soon antibiotic for now HOME D/W FAMILY TO F/U E AND GI AND SURGERY OUT POST POST ANTIBIOTIC Problems: Subjective 24 Hr Interval Summary Respiratory: no complaints Cardiovascular: no complaints Gastrointestinal: no complaints Exam/Review of Systems Vital Signs Vitals Vital Signs Date Time Temp Pulse Resp B/P Pulse Ox O2 Delivery O2 Flow Rate FiO2 04/20/16 07:34 98.3 66 18 141/62 94 04/18/16 20:00 Room Air Intake and Output 04/19/16 04/19/16 04/20/16 15:00 23:00 07:00 Intake Total 200 ml 1510 ml 740 ml Output Total 20 ml 700 ml 5 ml Balance 180 ml 810 ml 735 ml Exam Respiratory: clear to auscultation Cardiovascular: regular rate and rhythm Gastrointestinal: soft Musculoskeletal: nl extremities to inspection Extremities: normal pulses Medications Medications Current Medications Dextrose/Sodium Chloride (D5-1/2ns) 1,000 ml @ 60 mls/hr [id number] IV Last administered on 04/20/16 06:20; Admin Dose 60 MLS/HR; Start 04/05/16 at 17:36 Ondansetron HCl (Zofran Inj) 4 mg Q6H PRN IV NAUSEA AND/OR VOMITING Last administered on 04/13/16 04:18; Admin Dose 4 MG; Start 04/05/16 at 18:00 Acetaminophen (Tylenol Tab) 650 mg Q6H PRN PO PAIN LEVEL 1-3 OR FEVER Last administered on 04/19/16 22:13; Admin Dose 650 MG; Start 04/05/16 at 18:00 Magnesium Hydroxide (Milk Of Mag) 30 ml DAILY PRN PO CONSTIPATION; Start at 18:00 Zolpidem Tartrate 5 mg 5 mg QHS PRN PO SLEEP Last administered on 04/14/16 01: 40; Admin Dose 5 MG; Start 04/05/16 at 18:00 Metronidazole (Flagyl 500 Mg (Pmx)) 100 ml @ 100 mls/hr Q8 IVPB Last administered on 04/20/16 06:16; Admin Dose 100 MLS/HR; Start 04/05/16 at 22:00 Morphine Sulfate 3 mg 3 mg Q3H PRN IV PAIN Last administered on 04/08/16 12:49 ; Admin Dose 3 MG; Start 04/05/16 at 21:00 Ceftriaxone Sodium (Rocephin) 50 ml @ 100 mls/hr Q24H IVPB Last administered on 04/19/16 21:10; Admin Dose 100 MLS/HR; Start 04/09/16 at 20:00 Phenol (Chloraseptic Throat [place]) 2 spray Q2H PRN MT SORE THROAT; Start at 14:30 Pantoprazole (Protonix Tab) 40 mg DAILY@06 PO Last administered on 04/20/16 06 :16; Admin Dose 40 MG; Start 04/11/16 at 17:30 Montelukast Sodium (Singulair) 20 mg DAILY PRN PO asthma Last administered on 09:43; Admin Dose 20 MG; Start 04/14/16 at 09:30 Nystatin (Nystatin Powder) 1 applic BID TOP Last administered on 04/20/16 09: 01; Admin Dose 1 APPLIC; Start 04/19/16 at 21:00 AIMEE PEREZ MD Apr 20, 2016 14:11
[2016-04-20] MEDS ORDERED: LIDOCAINE 1% (MDV) 20 ML INJ SC ONE (16:00)
--- NOTE | 2016-04-20 16:01 | CONS ---
Date/Time of Note Date/Time of Note DATE: 04/20/16 TIME: 16:00 Assessment/Plan Assessment/Plan Additional Assessment/Plan Additional Assessment/Plan Additional Assessment/Plan IMPRESSION: 1. Pelvic abscess, status post drainage done by IR.still significant drainage, 2. History of diverticulitis. 3. High CEA. 4. Renal mass suspicious for malignancy. 5. Adrenal mass, which is benign. 6. Obesity. 7. Tremor. Plan continue antibiotics, still has significant drainage will repeat CT with rectal contrast tomorrow,no communication ,still large collection continue drain and antibiotics f/u as op Consultation Date/Type/Reason Admit Date/Time Apr 05, 2016 at 14:49 Initial Consult Date 04/09/16 Type of Consultation: ID Referring Provider: AIMEE PEREZ MD 24 HR Interval Summary Constitutional: improved Exam/Review of Systems Vital Signs Vitals Vital Signs Date Time Temp Pulse Resp B/P Pulse Ox O2 Delivery O2 Flow Rate FiO2 04/20/16 07:34 98.3 66 18 141/62 94 04/18/16 20:00 Room Air Intake and Output 04/19/16 04/19/16 04/20/16 15:00 23:00 07:00 Intake Total 200 ml 1510 ml 740 ml Output Total 20 ml 700 ml 5 ml Balance 180 ml 810 ml 735 ml Exam Constitutional: alert, oriented, well developed Psych: nl mood/affect, no complaints Head: atraumatic, normocephalic Eyes: EOMI, PERRL, nl conjunctiva, nl lids, nl sclera ENMT: nl external ears & nose, nl lips & teeth, nl nasal mucosa & septum Neck: non-tender, supple Respiratory: clear to auscultation, normal air movement Cardiovascular: nl pulses, regular rate and rhythm Gastrointestinal: nl liver, spleen, non-tender, soft Musculoskeletal: nl extremities to inspection, nl gait and stance Extremities: normal pulses Neurological: HIGH PRESSURE FIRER II-XII intact, nl mental status, nl speech, nl strength Skin: nl turgor, No rash or lesions Lymph: nl lymph nodes Medications Medications Current Medications Dextrose/Sodium Chloride (D5-1/2ns) 1,000 ml @ 60 mls/hr [id number] IV Last administered on 04/20/16t 06:20; Admin Dose 60 MLS/HR; Start 04/05/16 at 17:36 Ondansetron HCl (Zofran Inj) 4 mg Q6H PRN IV NAUSEA AND/OR VOMITING Last administered on 04/13/16 04:18; Admin Dose 4 MG; Start 04/05/16 at 18:00 Acetaminophen (Tylenol Tab) 650 mg Q6H PRN PO PAIN LEVEL 1-3 OR FEVER Last administered on 04/19/16 22:13; Admin Dose 650 MG; Start 04/05/16 at 18:00 Magnesium Hydroxide (Milk Of Mag) 30 ml DAILY PRN PO CONSTIPATION; Start at 18:00 Zolpidem Tartrate 5 mg 5 mg QHS PRN PO SLEEP Last administered on 04/14/16 01: 40; Admin Dose 5 MG; Start 04/05/16 at 18:00 Metronidazole (Flagyl 500 Mg (Pmx)) 100 ml @ 100 mls/hr Q8 IVPB Last administered on 04/20/16 15:04; Admin Dose 100 MLS/HR; Start 04/05/16 at 22:00 Morphine Sulfate 3 mg 3 mg Q3H PRN IV PAIN Last administered on 04/08/16 12:49 ; Admin Dose 3 MG; Start 04/05/16 at 21:00 Ceftriaxone Sodium (Rocephin) 50 ml @ 100 mls/hr Q24H IVPB Last administered on 04/19/16 21:10; Admin Dose 100 MLS/HR; Start 04/09/16 at 20:00 Phenol (Chloraseptic Throat [place]) 2 spray Q2H PRN MT SORE THROAT; Start at 14:30 Pantoprazole (Protonix Tab) 40 mg DAILY@06 PO Last administered on 04/20/16 06 :16; Admin Dose 40 MG; Start 04/11/16 at 17:30 Montelukast Sodium (Singulair) 20 mg DAILY PRN PO asthma Last administered on 09:43; Admin Dose 20 MG; Start 04/14/16 at 09:30 Nystatin (Nystatin Powder) 1 applic BID TOP Last administered on 04/20/16 09: 01; Admin Dose 1 APPLIC; Start 04/19/16 at 21:00 MARISELA HELM MD Apr 20, 2016 16:00
[2016-04-20] MEDS ORDERED: CEFTRIAXONE 2 GM/50 ML (PMX) 50 ML IVPB ONE (17:00)
[2016-04-20] MEDS: CEFTRIAXONE 2 GM/50 ML (PMX) 50 ML IVPB SCH (17:37)
[2016-04-20] MEDS: ACETAMINOPHEN 325 MG TAB PO PRN (17:43)
--- NOTE | 2016-04-20 17:58 | RADRPT ---
PROCEDURE: XR Chest. CLINICAL INDICATION: Check PICC line position. TECHNIQUE: Single frontal view. COMPARISON: 04/05/2016. FINDINGS: There is a left arm PICC line with the tip in the lower superior vena cava. The lungs are clear. The heart size is normal. There is no pleural effusion. There is no pneumothorax. IMPRESSION: 1. Satisfactory position of left arm PICC line. 2. Otherwise normal chest radiograph. RPTAT: QQ .Vinicio Ansari MD, MD Date Time Electronically viewed and signed by .Vinicio Ansari MD, MD on 04/20/2016 17:58 .R/
--- NOTE | 2016-04-20 20:10 | PN ---
Date/Time of Note Date/Time of Note DATE: 04/19/16 TIME: 20:09 Assessment/Plan Lines/Catheters IV Catheter Type (from [facility]): Saline Lock [facility] in Place (from [facility]): No Assessment/Plan Chief Complaint/Hosp Course 1. Abdominal pain with large fluid collection (13.6 x 8.2 x 7.6 cm), abscess. DDx of source: Perforated diverticulitis versus perforated appendicitis versus cystic tumor versus other. s/p IR percutaneous drain placed 04/06. +Cx. Negative cytology. Repeat CT noted. -Diet as tolerated -Antibiotics -Drain -Since collection is large, consider discharging patient with drain and abx and follow up as outpt 2. Hx of diverticulosis and diverticulitis -As above 3. BMI 37 -Nutrition optimization encouraged -Exercise encouraged 4. Leukocytosis and lactic acidosis with probable early sepsis secondary to above. Resolved -As above -Supportive measures 5. Left adrenal adenoma -Workup per endocrine and oncology appreciated > no further w/u per Oncology 6. 2.6 x 2.3 x 1.8 cm mass measuring 80 HU extending laterally at the junction of the mid and superior pole of the right kidney suspicious for neoplasm -Workup per urology and oncology appreciated > eventual partial nephrectomy after acute process resolves. 7. Hepatomegaly with hepatic cyst -Nutrition and weight optimization 8. Tremors -Medical management Thank you, Late entry 04/19 Problems: Subjective [address] noted with smaller but still large collection. No fevers or chills. Still has abdominal pain but improving. No nausea vomiting. No chest pain or shortness of breath. No visual or neurologic changes. No dysuria. Bowel function. Exam/Review of Systems Vital Signs Vitals Vital Signs Date Time Temp Pulse Resp B/P Pulse Ox O2 Delivery O2 Flow Rate FiO2 04/20/16 07:34 98.3 66 18 141/62 94 04/18/16 20:00 Room Air Intake and Output 04/19/16 04/19/16 04/20/16 15:00 23:00 07:00 Intake Total 200 ml 1510 ml 740 ml Output Total 20 ml 700 ml 5 ml Balance 180 ml 810 ml 735 ml Exam Free Text/Dictation Constitutional: alert, obese, oriented, No distress Psych: anxiety Head: atraumatic, normocephalic Eyes: EOMI, PERRL, nl conjunctiva, No icteric ENMT: nl external ears & nose, nl lips & teeth, No mucosa pink and moist Neck: non-tender, supple Respiratory: normal air movement, No congested cough, No labored breathing Cardiovascular: No edema, No regular rate and rhythm Gastrointestinal: distended, tender, No rebound or guarding. Left sided drain. Musculoskeletal: nl extremities to inspection, No joint tenderness Extremities: normal pulses, No calf tenderness, No cyanosis Neurological: nl mental status, nl speech, nl strength. Tremors Skin: nl turgor, No diaphoresis, No rash or lesions Lymph: nl lymph nodes, nontender FLORIAN TABOR MD Apr 20, 2016 20:10
--- NOTE | 2016-04-20 20:11 | PN ---
Date/Time of Note Date/Time of Note DATE: 04/20/16 TIME: 20:10 Assessment/Plan Lines/Catheters IV C[facility]ter Type (from [facility]): Saline Lock [facility] in Place (from [facility]): No Assessment/Plan Chief Complaint/Hosp Course 1. Abdominal pain with large fluid collection (13.6 x 8.2 x 7.6 cm), abscess. DDx of source: Perforated diverticulitis versus perforated appendicitis versus cystic tumor versus other. s/p IR percutaneous drain placed 04/06. +Cx. Negative cytology. Repeat CT noted. -Diet as tolerated -Antibiotics -Drain -Since collection is large, consider discharging patient with drain and abx and follow up as outpt 2. Hx of diverticulosis and diverticulitis -As above 3. BMI 37 -Nutrition optimization encouraged -Exercise encouraged 4. Leukocytosis and lactic acidosis with probable early sepsis secondary to above. Resolved -As above -Supportive measures 5. Left adrenal adenoma -Workup per endocrine and oncology appreciated > no further w/u per Oncology 6. 2.6 x 2.3 x 1.8 cm mass measuring 80 HU extending laterally at the junction of the mid and superior pole of the right kidney suspicious for neoplasm -Workup per urology and oncology appreciated > eventual partial nephrectomy after acute process resolves. 7. Hepatomegaly with hepatic cyst -Nutrition and weight optimization 8. Tremors -Medical management Thank you, Late entry Problems: Subjective [address] noted with smaller but still large collection. No fevers or chills. Still has abdominal pain but improving. No nausea vomiting. No chest pain or shortness of breath. No visual or neurologic changes. No dysuria. Bowel function. Being discharged. Exam/Review of Systems Vital Signs Vitals Vital Signs Date Time Temp Pulse Resp B/P Pulse Ox O2 Delivery O2 Flow Rate FiO2 04/20/16 07:34 98.3 66 18 141/62 94 04/18/16 20:00 Room Air Intake and Output 04/19/16 04/19/16 04/20/16 15:00 23:00 07:00 Intake Total 200 ml 1510 ml 740 ml Output Total 20 ml 700 ml 5 ml Balance 180 ml 810 ml 735 ml Exam Free Text/Dictation Constitutional: alert, obese, oriented, No distress Psych: anxiety Head: atraumatic, normocephalic Eyes: EOMI, PERRL, nl conjunctiva, No icteric ENMT: nl external ears & nose, nl lips & teeth, No mucosa pink and moist Neck: non-tender, supple Respiratory: normal air movement, No congested cough, No labored breathing Cardiovascular: No edema, No regular rate and rhythm Gastrointestinal: distended, tender, No rebound or guarding. Left sided drain. Musculoskeletal: nl extremities to inspection, No joint tenderness Extremities: normal pulses, No calf tenderness, No cyanosis Neurological: nl mental status, nl speech, nl strength. Tremors Skin: nl turgor, No diaphoresis, No rash or lesions Lymph: nl lymph nodes, nontender FLORIAN TABOR MD Apr 20, 2016 20:11
--- NOTE | 2016-04-22 21:08 | QN ---
Documentation Comment [id number] AIMEE PEREZ MD Apr 22, 2016 21:08
--- NOTE | 2016-04-23 06:42 | DS ---
DATE OF ADMISSION: 04/05/2016 DATE OF DISCHARGE: 04/20/2016 ADMISSION DIAGNOSES: 1. Pelvic, abdominal mass. 2. Diverticulitis, rule out abscess. 3. History of diverticulitis. HOSPITAL COURSE: The patient was seen by Dr. Hutchins in consultation. His impression: Abdominal p ain, rule out fluid collection, 13.6 x 8.2 x 7.6 cm. Differential diagnosis perforated diverticulit is versus perforated appendicitis versus cystic tumor versus other. The patient had leukocytosis, l eft adrenal adenoma, hepatomegaly and with hepatic cyst ____. The patient underwent CT-guided drain age of the abdominal abscess, and patient was also seen by Dr. Jemima Max in oncology consultation . Her impression: The patient has 2.6 x 2.3 x 1.8 cm mass measuring ____ extending laterally to th e junction of the mid and superior pole of right kidney suspicious for neoplasm, left adrenal adenom a. Her recommendation was followed. The patient was started on antibiotics, and the patient was se en by Dr. Keyur Noland in consultation. Dr. Noland's impression: A 2.6 x 2.3 x 1.8 cm mass in t he right kidney between the upper and the midpole of the right kidney, looks like exophytic, suspici ous for renal cell carcinoma. The patient was treated for abdominal abscess and is growing E. coli. Dr. Kwon saw this patient in consultation. His impression: Perforated diverticular abscess, l eft lower quadrant; probable renal cell carcinoma, right kidney, left ____; diabetes mellitus; asthm a; morbid obesity. The patient also had endocrine workup done for adenoma which was benign. The divina cole was seen by Dr. Ferguson in consultation. Dr. Chavez also saw this patient in consultation, an gisselle Chavez's impression: Pelvic abscess, status post drainage done by IR; history of diverticulitis w ith high CEA; adrenal mass suspicious for malignancy; adrenal mass; obesity; tremor, and patient's f amily was counseled regarding these findings, and patient's was aware of all the findings. The patient was continued on antibiotic, and patient was cleared by all the consultants to be discha rged home with further workup as an outpatient. Discussed with Dr. Chavez, Dr. Noland, Dr. Hutchins , and they all agreed. The patient will go home with drainage catheter, and once patient completed the course of antibiotic, patient will have the treatment done for patient's renal mass. The patien t understood, family understood, and the patient was also instructed to follow up with her primary [facility] doctor after the discharge and have a referral to [facility] urologist. The patient to have referral f or [facility] temporary office assistant and a referral for Dr. Abdiel Hutchins and Dr. Ferguson as well as Dr. Jemima de jesus. The patient understood. The patient was cleared by Infectious Disease to continue antibiotic at home through PICC line. PICC line was placed. C. difficile was negative. The patient had Bact eroides fragilis noted from the abdominal abscess fluid. E. coli, streptococcus group D were noted from abdominal abscess. Tests done include PICC line placement. Abdominopelvic CT scan done shows patient has no evidence of fistulization between the contrast opacified colon and the drainage familia ter containing inflammatory collection of the left lower quadrant, diverticular disease of the colon , slight interval increase in the volume of the suspected left lower quadrant abscess as compared to the prior CT scan but clinically patient was doing well, solid interpolar right renal mass concerni ng for renal cell carcinoma, moderate ____. DISCHARGE DIAGNOSES: Include the patient has: 1. Abdominal fluid collection, abscess. 2. Diverticulosis and diverticulitis. 3. Left adrenal adenoma, benign. 4. A 2.6 x 2.3 x 1.8 cm mass at the junction of the mid and superior pole of the right kidney. 5. Hepatomegaly and hepatic cyst. 6. Electrolyte imbalance. 7. Elevated CEA. DISCHARGE MEDICATIONS: The patient to continue on: 1. Tylenol. 2. Flagyl. 3. Protonix. Prescription for Rocephin was given Infectious Disease, and home health was arranged. CONSULTATIONS OBTAINED: 1. Infectious Disease, Dr. Moffett, Dr. Kwon 2. Surgery, Dr. Abdiel Hutchins 3. GI, Dr. Chavez 4. Urology, Dr. Noland 5. Endocrinology, Dr. Michael Ferguson 6. Oncology, Dr. Jemima Max The patient is to follow up with patient's own primary care doctor within 1 week. The patient to fo llow up with [facility] urologist or Dr. Noland by referral from primary care doctor as soon as possible f or followup. The patient to follow up with Dr. Abdiel Hutchins or [facility] Surgery from primary care doctor. The patient to follow with Dr. Michael Ferguson or [facility] tightening machine operator and also to follow up with Gisselle Chavez or [facility] GI doctor. Also to follow up with Oncology or Dr. Max from referral from PCP. The patient was also instructed to come to the ER p.r.n. for further assistance. The patient unders tood and verbalized. Family understood and verbalized. The patient is stable at the time of discha rge. Dictated By: AIMEE PEREZ MD BS/NTS Conf#: [id number] DID#: [id number]
== END 2016-04-20 19:42 | disposition home health service (06) | DRG 372 ==
LOC: E/R 08:59 → PP2 14:49
PROVIDERS: ADMIT Internal Medicine Nephrology; ATTEND Internal Medicine Nephrology
PROC: 0W9J30Z Drainage of Pelvic Cavity with Drainage Device, Percutaneous Approach (ICD-10-PCS; principal; 2016-04-09)
PROC: 02HV33Z Insertion of Infusion Device into Superior Vena Cava, Percutaneous Approach (ICD-10-PCS; 2016-04-20)
DX: K65.1 Peritoneal abscess (principal); R65.10 Systemic inflammatory response syndrome (SIRS) of non-infectious origin without acute organ dysfunction; K76.89 Other specified diseases of liver; R16.2 Hepatomegaly with splenomegaly, not elsewhere classified; B37.3 Candidiasis of vulva and vagina; K57.20 Diverticulitis of large intestine with perforation and abscess without bleeding; D49.511 Neoplasm of unspecified behavior of right kidney; B95.4 Other streptococcus as the cause of diseases classified elsewhere; B96.20 Unspecified Escherichia coli [E. coli] as the cause of diseases classified elsewhere; R10.84 Generalized abdominal pain; Z16.24 Resistance to multiple antibiotics; E66.9 Obesity, unspecified; Z68.37 Body mass index [BMI] 37.0-37.9, adult; J45.909 Unspecified asthma, uncomplicated; R97.0 Elevated carcinoembryonic antigen [CEA]; B96.6 Bacteroides fragilis [B. fragilis] as the cause of diseases classified elsewhere; E87.6 Hypokalemia; D44.12 Neoplasm of uncertain behavior of left adrenal gland
CPT/HCPCS: 36415; 36569; 71010; 74176; 74177; 76937; 77012; 80048; 80053; 81001; 81003; 82024; 82088; 82378; 82530; 82533; 83605; 83690; 84244; 84484; 85025; 85610; 85730; 87040; 87045; 87070; 87075; 87086; 88104; 93005; 96365; 96366; 96368; 96375; 96376; C9113; J0744; J1100; J1170; J1200; J2250; J2270; J2370; J2405; J2543; J2765; J3010; J7030; J7042; Q9967

== ENCOUNTER 2016-05-27 11:11 | Emergency (ER) | payer OTHER ==
[~2016-05-27] VITALS: Ht 157.5 cm; Wt 82.0 kg
[~2016-05-27 11:11] MED LIST: ACET325T33 PO; ALBU18HF INHALATION; METR500T PO; PANT40TA4 PO
[2016-05-27 11:15] VITALS: Ht 157.5 cm; Wt 82.0 kg
[2016-05-27] MEDS ORDERED: morphine 4 MG/ML VIAL IV STA (14:45)
[2016-05-27] MEDS ORDERED: ONDANSETRON 4 MG INJ IV STA (14:45)
[2016-05-27 15:16] LABS: ADD SCAN DIFF NO
[2016-05-27 15:17] LABS: BASOPHILS % 0.6 % (0.0-2.0); EOSINOPHILS # 0.2 10^3/ul (0.0-0.5); EOSINOPHILS % 2.9 % (0.0-7.0); HEMATOCRIT 37.1 % (37.0-47.0); HEMOGLOBIN 11.4 g/dl (12.0-16.0); LYMPHOCYTES # 1.2 10^3/ul (0.8-2.9); LYMPHOCYTES % 16.9 % (15.0-51.0); MEAN CORPUSCULAR HEMOGLOBIN 26.7 pg (29.0-33.0); MEAN CORPUSCULAR HGB CONC 30.7 g/dl (32.0-37.0); MEAN CORPUSCULAR VOLUME 86.9 fl (82.0-101.0); MONOCYTE # 0.4 10^3/ul (0.3-0.9); MONOCYTES % 6.1 % (0.0-11.0); NEUTROPHIL # 5.3 10^3/ul (1.6-7.5); NEUTROPHILS % 73.2 % (39.0-77.0); PLATELET COUNT 369 10^3/UL (140-415); RED BLOOD COUNT 4.27 10^6/ul (4.20-5.40); RED CELL DISTRIBUTION WIDTH 18.3 % (11.5-14.5); WHITE BLOOD COUNT 7.2 10^3/ul (4.8-10.8)
[2016-05-27 15:28] LABS: ALBUMIN 3.8 g/dl (3.3-4.9)
[2016-05-27 15:29] LABS: POTASSIUM 4.2 mmol/L (3.5-5.1)
[2016-05-27 15:31] LABS: ALBUMIN/GLOBULIN RATIO 0.97; BILIRUBIN,INDIRECT 0.4 mg/dl (0-1.1); BILIRUBIN,TOTAL 0.4 mg/dl (0.2-1.3); CREATININE 0.66 mg/dl (0.44-1.00); TOTAL PROTEIN 7.7 g/dl (6.1-8.1)
[2016-05-27 15:32] LABS: CALCIUM 9.5 mg/dl (8.4-10.2)
[2016-05-27 16:00] VITALS: TEMP 98.6
[2016-05-27] MEDS ORDERED: SOD CHLORIDE 0.9% 100 ML ONE (16:17)
[2016-05-27] MEDS ORDERED: IOHEXOL 300MG/ML 30 ML BTL ONE (16:17)
--- NOTE | 2016-05-27 17:24 | RADRPT ---
PROCEDURE: CT abdomen and pelvis with contrast. CLINICAL INDICATION: Follow-up evaluation of abscess. Evaluate drainage catheter TECHNIQUE: CT scan of the abdomen and pelvis with contrast was performed. Coronal and sagittal im ages were also reformatted. 100 cc Omnipaque-300 intravenous contrast was administered without comp lication. Total exam CTDIvol = 16.92 mGy and DLP = 872.27 mGy-cm. COMPARISON: CT 04/19/2016 FINDINGS: Visualized lower thorax: The lung bases are clear. There is no evidence for pleural effusion. Liver, gallbladder, pancreas and spleen: Normal hepatic contour, attenuation in size. Several holly ngiomata of the right hepatic dome are again noted without suspicious masses or ductal dilatation. Gallbladder hydrops is again seen without evidence of cholecystitis. No common bile duct dilatation is evident. The pancreas is normal. The spleen is top normal, not enlarged. Adrenal glands and genitourinary system: Hypodense left adrenal gland nodule of approximately 1.2 c m consistent with an adenoma is again noted (series 3 image 34). The right adrenal gland is unremar kable. Solid relatively hypodense right lateral interpolar renal mass lesion currently estimated at 2.6 x 1.8 cm (series 3 image 52) and not significantly changed. There is no evidence of hydronephro sis. The left kidney is unremarkable. The ureters are unremarkable. The urinary bladder shows no abnormality. Hysterectomy changes are again noted. Gastrointestinal system: Sliding hiatal hernia is unchanged to the remainder of the stomach is unre markable There is no evidence of obstruction, ileus or inflammation. There is no evidence of acute appendicitis. Adjacent to the sigmoid diverticular disease is an irregularly marginated, peripheral ly enhancing and centrally hypodense collection toe is present on the previous examination, the pigt ail drainage catheter surrounded by gas and fluid in the more cephalad portion of the collection, th e volume of the abscess is now estimated at 243 cc, decreased from 374 cc on the study of 04/19/2016 (series 3 image 118-130). Internal calcifications with multiple punctate foci of gas are again demo nstrated. No new acute inflammatory collections are present Peritoneum, retroperitoneum, vessels and lymph nodes: The abdominal aorta is normal in caliber. Th ere is no evidence for atherosclerotic calcification. Inferior vena cava is normal in caliber. Inci dental retroaortic left renal vein is present. There is no evidence for adenopathy. Trace amount o f pelvic ascites in the right lower quadrant is similar to the prior examination, pain decreased. T here is no evidence of pneumoperitoneum. Osseous structures and musculoskeletal system: There is no evidence for acute osseous abnormality o r muscular pathology. No subcutaneous abnormalities are present. RPTAT:HJJR IMPRESSION: 1. Compared to the prior CT of 04/19/2016, the left lower quadrant abscess has decreased in volume by approximately 130 cc, the pigtail catheter tip in good position within the cephalad portion of th e collection surrounded by fluid, gas and calcifications as seen previously. 2. Diverticular disease of the distal colon again noted without findings of acute diverticulitis. 3. Solid right renal mass again raising concern for renal cell carcinoma. 4. Incidental left adrenal gland adenoma again seen. 5. Hiatal hernia. 6. Small hepatic hemangiomata. 7. Hysterectomy. Physician Gabriel Date Time Electronically viewed and signed by Physician Gabriel on 05/27/2016 17:23 /
[2016-05-27] MEDS ORDERED: SOD CHLORIDE 0.9% 1,000 ML IV ONE (19:00)
[2016-05-27] MEDS ORDERED: LIDOCAINE/MYLANTA 40 ML BTL PO STA (19:53)
[2016-05-27 19:55] VITALS: BP 103/54; PULSE 88; RESP 16
[2016-05-27] MEDS ORDERED: CIPR500T4 PO (20:42)
[2016-05-27] MEDS ORDERED: METR500T PO (20:42)
--- NOTE | 2016-05-27 20:46 | ERD ---
ER Documentation Chief Complaint Date/Time DATE: 05/27/16 TIME: 20:44 Chief Complaint Patient G-Tube checked thinks it may be leaking HPI This is a 60-year-old female who had a diverticular abscess on April 05, 2016 required a pigtail drainage catheter placement. The patient is here because the drainage fluid has changed color from a yellow urine like color to a [place] brown color. There is no blood. She has no abdominal pain. She has no fever. No skin color changes in the abdominal wall. She does have adequate drainage as well still. She is having some insurance issues and having some problems seeing the correct surgeon. She was told to come in for evaluation ROS All systems reviewed and are negative except as per history of present illness. Medications Home Meds Active Scripts Metronidazole* (Flagyl*) 500 Mg Tablet, 500 MG PO TID for 7 Days, TAB Prov:CORINA SOLO DO 05/27/16 Ciprofloxacin Hcl* (Ciprofloxacin Hcl*) 500 Mg Tablet, 500 MG PO BID for 7 Days , TAB Prov:CORINA SOLO DO 05/27/16 Metronidazole* (Flagyl*) 500 Mg Tablet, 500 MG PO Q8 for 28 Days, TAB Prov:AIMEE PEREZ MD 04/20/16 Pantoprazole* (Pantoprazole*) 40 Mg Tablet.dr, 40 MG PO DAILY@06 for 28 Days Prov:AIMEE PEREZ MD 04/20/16 Acetaminophen* (Tylenol*) 325 Mg Tablet, 650 MG PO Q6H Y for PAIN LEVEL 1-3 OR FEVER for 14 Days, TAB Prov:AIMEE PEERZ MD 04/20/16 Reported Medications Albuterol Sulfate* (Ventolin HFA*) 18 Gm Hfa.aer.ad, 2 PUFF INHALATION Q4H Y for WHEEZING AND SOB, #1 INHALER 04/05/16 Allergies Allergies: Coded Allergies: Penicillins (Verified Adverse Reaction, Severe, RAsh, 04/05/16) PMhx/Soc History of Surgery: Yes (Hysterectomy, bladder suspension. ) Anesthesia Reaction: No Hx Neurological Disorder: No Hx Respiratory Disorders: Yes (Asthma) Hx Cardiac Disorders: No Hx Psychiatric Problems: No Hx Miscellaneous Medical Probl: Yes (MORBID OBESITY) Hx Alcohol Use: No Hx Substance Use: No Hx Tobacco Use: No Smoking Status: Never smoker FmHx Family History: No coronary disease Physical Exam Vitals Vital Signs Date Time Temp Pulse Resp B/P Pulse Ox O2 Delivery O2 Flow Rate FiO2 05/27/16 19:55 88 16 103/54 16 Room Air 05/27/16 18:00 88 16 87/65 16 Room Air 05/27/16 16:00 98.6 87 16 96/63 16 Room Air 05/27/16 11:15 98.7 113 20 117/68 98 Physical Exam Const: Well-developed, well-nourished Head: Atraumatic, normocephalic Eyes: Normal Conjunctiva, PERRLA, EOMI, normal sclera, no nystagmus ENT: Normal External Ears, Nose and Mouth, moist mucus membranes. Neck: Full range of motion. No meningismus, no lymphadenopathy. Resp: Clear to auscultation bilaterally, no wheezing, rhonchi, rales Cardio: Regular rate and rhythm, no murmurs, S1 S2 present Abd: Soft, non tender x 4, non distended. Normal bowel sounds, no guarding or rebound, no pulsitile abdominal masses or bruits, there is a intra- abdominal abscess catheter in place with no signs of cellulitis erythema no induration no tenderness there is drainage into the back there is a houston-brown color without blood Skin: No petechiae or rashes, no ecchymosis , no maculopapular rash Back: No midline or flank tenderness Ext: No cyanosis, or edema, FROM x 4, normal inspection, neurovascularly intact x 4 Neur: Awake and alert, STR 5/5 x 4, sensation intact x 4, no focal findings, cerebellum intact Psych: Normal Mood and Affect Result Diagram: 05/27/16 1500 05/27/16 1500 Results 24 hrs Laboratory Tests Test 05/27/16 15:00 White Blood Count 7.210^3/ul Red Blood Count 4.2710^6/ul Hemoglobin 11.4g/dl Hematocrit 37.1% Mean Corpuscular Volume 86.9fl Mean Corpuscular Hemoglobin 26.7pg Mean Corpuscular Hemoglobin Concent 30.7g/dl Red Cell Distribution Width 18.3% Platelet Count 41618^3/UL Mean Platelet Volume 9.0fl Neutrophils % 73.2% Lymphocytes % 16.9% Monocytes % 6.1% Eosinophils % 2.9% Basophils % 0.6% Nucleated Red Blood Cells % 0.0/100WBC Neutrophils # 5.310^3/ul Lymphocytes # 1.210^3/ul Monocytes # 0.410^3/ul Eosinophils # 0.210^3/ul Basophils # 0.010^3/ul Nucleated Red Blood Cells # 0.010^3/ul Sodium Level 140mmol/L Potassium Level 4.2mmol/L Chloride Level 101mmol/L Carbon Dioxide Level 27mmol/L Anion Gap 16 Blood Urea Nitrogen 16mg/dl Creatinine 0.66mg/dl Glucose Level 124mg/dl Calcium Level 9.5mg/dl Total Bilirubin 0.4mg/dl Direct Bilirubin 0.00mg/dl Indirect Bilirubin 0.4mg/dl Aspartate Amino Transf (AST/SGOT) 19IU/L Alanine Aminotransferase (ALT/SGPT) 23IU/L Alkaline Phosphatase 100IU/L Total Protein 7.7g/dl Albumin 3.8g/dl Globulin 3.90g/dl Albumin/Globulin Ratio 0.97 Lipase 64U/L Current Medications Medications (Trade) Dose Ordered Sig/Arsenio Route PRN Reason Start Time Stop Time Status Last Admin Dose Admin Morphine Sulfate (morphine) 4 mg ONCE STAT IV 05/27/16 14:45 05/27/16 14:46 DC 05/27/16 14:51 Ondansetron HCl (Zofran Inj) 4 mg ONCE STAT IV 05/27/16 14:45 05/27/16 14:46 DC 05/27/16 14:49 IV Flush 10 ml 10 ml STK-MED ONCE .ROUTE 05/27/16 16:17 05/27/16 16:18 DC 05/27/16 16:29 Sodium Chloride (NS) 100 ml @ ud STK-MED ONCE .ROUTE 05/27/16 16:17 05/27/16 16:18 DC 05/27/16 16:29 Iohexol 30 ml 30 ml STK-MED ONCE .ROUTE 05/27/16 16:17 05/27/16 16:18 DC 05/27/16 16:29 Sodium Chloride (NS) 1,000 ml @ 1,000 mls/hr Q1H ONCE IV 05/27/16 19:00 05/27/16 19:59 DC 05/27/16 19:06 Miscellaneous Medication (Gi Cocktail (2)) 40 ml ONCE STAT PO 05/27/16 19:53 05/27/16 19:54 DC Procedures/MDM PROCEDURE: CT abdomen and pelvis with contrast. CLINICAL INDICATION: Follow-up evaluation of abscess. Evaluate drainage catheter TECHNIQUE: CT scan of the abdomen and pelvis with contrast was performed. Coronal and sagittal images were also reformatted. 100 cc Omnipaque-300 intravenous contrast was administered without complication. Total exam CTDIvol = 16.92 mGy and DLP = 872.27 mGy-cm. COMPARISON: CT 04/19/2016 FINDINGS: Visualized lower thorax: The lung bases are clear. There is no evidence for pleural effusion. Liver, gallbladder, pancreas and spleen: Normal hepatic contour, attenuation in size. Several hemangiomata of the right hepatic dome are again noted without suspicious masses or ductal dilatation. Gallbladder hydrops is again seen without evidence of cholecystitis. No common bile duct dilatation is evident. The pancreas is normal. The spleen is top normal, not enlarged. Adrenal glands and genitourinary system: Hypodense left adrenal gland nodule of approximately 1.2 cm consistent with an adenoma is again noted (series 3 image 34). The right adrenal gland is unremarkable. Solid relatively hypodense right lateral interpolar renal mass lesion currently estimated at 2.6 x 1.8 cm ( series 3 image 52) and not significantly changed. There is no evidence of hydronephrosis. The left kidney is unremarkable. The ureters are unremarkable. The urinary bladder shows no abnormality. Hysterectomy changes are again noted. Gastrointestinal system: Sliding hiatal hernia is unchanged to the remainder of the stomach is unremarkable There is no evidence of obstruction, ileus or inflammation. There is no evidence of acute appendicitis. Adjacent to the sigmoid diverticular disease is an irregularly marginated, peripherally enhancing and centrally hypodense collection toe is present on the previous examination, the pigtail drainage catheter surrounded by gas and fluid in the more cephalad portion of the collection, the volume of the abscess is now estimated at 243 cc, decreased from 374 cc on the study of 04/19/2016 (series 3 image 118-130). Internal calcifications with multiple punctate foci of gas are again demonstrated. No new acute inflammatory collections are present Peritoneum, retroperitoneum, vessels and lymph nodes: The abdominal aorta is normal in caliber. There is no evidence for atherosclerotic calcification. Inferior vena cava is normal in caliber. Incidental retroaortic left renal vein is present. There is no evidence for adenopathy. Trace amount of pelvic ascites in the right lower quadrant is similar to the prior examination, pain decreased. There is no evidence of pneumoperitoneum. Osseous structures and musculoskeletal system: There is no evidence for acute osseous abnormality or muscular pathology. No subcutaneous abnormalities are present. RPTAT:HJJR IMPRESSION: 1. Compared to the prior CT of 04/19/2016, the left lower quadrant abscess has decreased in volume by approximately 130 cc, the pigtail catheter tip in good position within the cephalad portion of the collection surrounded by fluid, gas and calcifications as seen previously. 2. Diverticular disease of the distal colon again noted without findings of acute diverticulitis. 3. Solid right renal mass again raising concern for renal cell carcinoma. 4. Incidental left adrenal gland adenoma again seen. 5. Hiatal hernia. 6. Small hepatic hemangiomata. 7. Hysterectomy. Physician Gabriel Date Time Electronically viewed and signed by Physician Gabriel on 05/27/2016 17:23 JR/ CC: CORINA SOLO DO Spoke with Dr. Florian Lockwood and Dr. Toussaint Patient will follow up with Dr. Lockwood and I was told to send off cultures of the drainage fluid and sent home on Cipro and Flagyl Patient has normal white count is decreasing size abscess on CT scan no pain or tenderness Departure Diagnosis: Primary Impression: Intra-abdominal abscess Condition: Stable Patient Instructions: Abscess Drainage Referrals: FLORIAN TABOR MD, APOSTOLOS A. DO May 27, 2016 20:46
[2016-05-27] MEDS ORDERED: PANT40TA3 PO (20:59)
== END 2016-05-27 21:22 | disposition home or self-care (01) ==
LOC: E/R 11:11
DX: T81.4XXA Infection following a procedure, initial encounter (principal); J45.909 Unspecified asthma, uncomplicated; E66.01 Morbid (severe) obesity due to excess calories; Y73.8 Miscellaneous gastroenterology and urology devices associated with adverse incidents, not elsewhere classified; Z68.33 Body mass index [BMI] 33.0-33.9, adult
CPT/HCPCS: 36415; 74177; 80053; 83690; 85025; 87070; 96374; 96375; 99285; J2270; J2405; J7030; Q9967

== ENCOUNTER 2018-04-25 12:33 | Emergency (ER) | payer OTHER ==
[~2018-04-25] VITALS: Ht 160 cm; Wt 93.8 kg
[~2018-04-25 12:33] MED LIST changes: +CIPR500T4 PO; +PANT40TA3 PO
[2018-04-25 12:48] VITALS: Ht 160 cm; Wt 93.8 kg
[2018-04-25 18:35] VITALS: BP 134/64; PULSE 77; RESP 15
--- NOTE | 2018-04-25 20:39 | ERD ---
ER Documentation Chief Complaint Chief Complaint LEFT CALF/ANKLE/KNEE PAIN [id number] S/P FALL HPI 62-year-old female patient with a past medical history of cancer, left fibula fracture presents to the ED for left calf pain that started intimately for 2 weeks after status post fall. Patient was sent here to obtain a venous ultrasound. Patient denies any head or neck injuries. Patient reports that she is having achy left calf pain. Denies any chest pain, shortness of breath, nausea, vomiting, diarrhea, neck stiffness. Denies any loss of sensation, loss of range of motion, increased swelling or redness. ROS All systems reviewed and are negative except as per history of present illness. Medications Home Meds Active Scripts Pantoprazole* (Protonix*) 40 Mg Tablet., 40 MG PO DAILY, #20 TAB Prov:CORINA SOLO DO 05/27/16 Metronidazole* (Flagyl*) 500 Mg Tablet, 500 MG PO TID for 7 Days, TAB Prov:CORINA SOLO DO 05/27/16 Ciprofloxacin Hcl* (Ciprofloxacin Hcl*) 500 Mg Tablet, 500 MG PO BID for 7 Days, TAB Prov:CORINA SOLO DO 05/27/16 Metronidazole* (Flagyl*) 500 Mg Tablet, 500 MG PO Q8 for 28 Days, TAB Prov:AIMEE PEREZ MD 04/20/16 Pantoprazole* (Pantoprazole*) 40 Mg Tablet., 40 MG PO DAILY@06 for 28 Days Prov:AIMEE PEREZ MD 04/20/16 Acetaminophen* (Tylenol*) 325 Mg Tablet, 650 MG PO Q6H PRN for PAIN LEVEL 1-3 OR FEVER for 14 Days, TAB Prov:AIMEE PEREZ MD 04/20/16 Reported Medications Albuterol Sulfate* (Ventolin HFA*) 18 Gm Hfa.aer.ad, 2 PUFF INHALATION Q4H PRN for WHEEZING AND SOB, #1 INHALER 04/05/16 Allergies Allergies: Coded Allergies: Penicillins (Verified Adverse Reaction, Severe, RAsh, 04/05/16) PMhx/Soc History of Surgery: Yes (Hysterectomy, bladder suspension. ) Anesthesia Reaction: No Hx Neurological Disorder: No Hx Respiratory Disorders: Yes (Asthma) Hx Cardiac Disorders: No Hx Psychiatric Problems: No Hx Miscellaneous Medical Probl: Yes (MORBID OBESITY) Hx Alcohol Use: No Hx Substance Use: No Hx Tobacco Use: No Smoking Status: Never smoker FmHx Family History: No diabetes, No coronary disease Physical Exam Vitals Vital Signs Date Temp Pulse Resp B/P (MAP) Pulse Ox O2 O2 Flow FiO2 Time Delivery Rate 04/25/18 97.8 77 15 134/64 97 Room Air 18:35 (87) 04/25/18 99.0 82 20 134/70 96 12:48 (91) Physical Exam Const: [id number], well-nourished. In no acute distress. Head: Atraumatic, normocephalic Eyes: Normal Conjunctiva without injection ENT: Normal external ear, nose and mouth. Neck: Full range of motion. No meningismus. Resp: Clear to auscultation bilaterally. No wheezing, rhonchi, rales, or crackles. No accessory muscle use. No retractions. Cardio: Regular rate and rhythm, no murmurs Skin: No petechiae or rashes Back: No midline tenderness. No CVA tenderness. Ext: No cyanosis, or edema. Cap refill less than 2 seconds. Distal pulses intact bilaterally. Neur: Awake and alert. Normal gait and coordination. Muscle strength 5/5. Sensation intact bilaterally. Psych: Normal Mood and Affect Procedures/MDM 52-year-old female patient with no significant past medical history presents to ED complaining of left calf pain status post fall and was sent here to rule out a DVT with a venous ultrasound. Patient is afebrile and nontoxic-appearing. IMPRESSION: No sonographic evidence for deep venous thrombosis of the bilateral lower extremities. Patient's extremity symptoms have stabilized while they have been evaluated in the department and are appropriate for outpatient follow up. No evidence of fractures, dislocations, compartment syndrome, neurologic injury, vascular injury, open joint, open fracture, tendon laceration, septic arthritis, osteomyelitis, DVT, foreign body, or other emergent conditions. Diagnosis: Encounter for laboratory test Follow up with primary care physician in 1-2 days. Instructed patient to return to the ED sooner for any worsening symptoms. Patient's questions were answered. Patient is hemodynamically stable. Patient understood and agreed with discharge plan. Patient discharged stable. Disclaimer: Inadvertent spelling and grammatical errors are likely due to EHR/dictation software use and do not reflect on the overall quality of patient care. Also, please note that the electronic time recorded on this note does not necessarily reflect the actual time of the patient encounter. Departure Diagnosis: Primary Impression: Encounter for laboratory test Condition: Stable Patient Instructions: What Is Duplex Ultrasound? Referrals: [facility] Usted se silva hecho un examen mdico de control que le indica que no est en wei condicin que requiera tratamiento urgente en el Departamento de Emergencia. Un estudio ms profundo y el tratamiento de andres condicin pueden esperar sin ningn riesgo hasta que usted sea atendida/o en el consultorio de andres mdico o wei clnica. Es responsabilidad suya arreglar wei hever para el seguimiento del mj. MANEJO DE CONDICIONES NO URGENTES EN EL FUTURO 1) Si usted tiene un mdico de atencin primaria: Usted debera llamar a andres mdico de atencin primaria antes de venir al departamento de emergencia. Despus de las horas de consultorio, andres doctor o andres asociado/a est disponible por telfono. El mdico o enfermero de russ en el servicio telefnico puede asesorarle por beverley medio para atender el problema, o mj contrario se puede programar wei hever. 2) Si usted no tiene un mdico de atencin primaria: Llame al mdico o clnica de referencia que aparece abajo radha las horas de consultorio para hacer wei hever para que le vean. CLINICAS: [facility] [phone] [facility] [phone] [facility] [phone] [facility] [phone] [facility] [phone] [facility] [phone] [address] [facility]. [facility] () Belia se silva hecho un examen mdico de control que le indica que no est en wei condicin que requiera tratamiento urgente en el Departamento de Emergencia. Un estudio ms profundo y el tratamiento de andres condicin pueden esperar sin ningn riesgo hasta que usted sea atendida/o en el consultorio de andres mdico o wei clnica. Es responsabilidad suya arreglar wei hever para el seguimiento del mj. MANEJO DE CONDICIONES NO URGENTES EN EL FUTURO 1) Si usted tiene un mdico de atencin primaria: Usted debera llamar a andres mdico de atencin primaria antes de venir al departamento de emergencia. Despus de las horas de consultorio, andres doctor o andres asociado/a est disponible por telfono. El mdico o enfermero de russ en el servicio telefnico puede asesorarle por beverley medio para atender el problema, o mj contrario se puede programar wei hever. 2) Si usted no tiene un mdico de atencin primaria: Llame al mdico o condado institucions de referencia que aparece abajo radha las horas de consultorio para hacer wei hever para que le vean. SI USTED NO PUEDE PAGAR PARA PAWAN UN MEDICO puede ir a: [facility] [address] [place] [address] [facility] [address] [place] [address] [facility] [address] [place] [address] PARA ROHITH [facility] [address] [place] [address] [facility] 7 a.m.- 11 p.m. Every Day of the Week NO APPOINTMENT OR AUTHORIZATION NEEDED [facility] Hours: Mon-Fri 9:00 AM - 5:00 PM Additional Instructions: Andres ultrasonido es negativo para los cogulos sanguneos en las piernas. Llame al doctor MAANA y jyoti wei HEVER PARA DENTRO DE 2-3 VELARDE.Dgale a la secretaria que nosotros le instruimos hacer esta hever.Avise o llame si andres condicin se empeora antes de la hever. Regresa aqui si peor o no mejor. BULMARO FRAIRE PA-C Apr 25, 2018 20:39
== END 2018-04-25 18:35 | disposition home or self-care (01) ==
LOC: FTE 12:33
DX: M79.662 Pain in left lower leg (principal); J45.909 Unspecified asthma, uncomplicated; E66.01 Morbid (severe) obesity due to excess calories; Z00.00 Encounter for general adult medical examination without abnormal findings; Z68.36 Body mass index [BMI] 36.0-36.9, adult; Z85.9 Personal history of malignant neoplasm, unspecified
CPT/HCPCS: 93970